=== PATIENT | female | born 1930 | race Caucasian/White ===

== ENCOUNTER 2017-09-23 10:42 | Inpatient (IN) | payer MEDICARE, OTHER ==
[~2017-09-23] VITALS: Ht 160 cm; Wt 68.1 kg
[2017-09-23 10:56] VITALS: Ht 160 cm; Wt 68.1 kg
[2017-09-23] MEDS ORDERED: PIPER-TAZO 3.375 GM IV (PMX) 50 ML IVPB STA (10:56)
[2017-09-23] MEDS ORDERED: SODIUM CHLORIDE 0.9% 1L BAG IV* STA (10:56)
[2017-09-23] MEDS ORDERED: VANCOMYCIN 1 GM (PMX) 250 ML IVPB STA (10:56)
[2017-09-23 11:43] LABS: BASOPHIL # 0.1 10^3/ul (0.0-0.1); BASOPHILS % 0.5 % (0.0-2.0); EOSINOPHILS # 0.1 10^3/ul (0.0-0.5); EOSINOPHILS % 1.1 % (0.0-7.0); HEMATOCRIT 37.2 % (37.0-47.0); HEMOGLOBIN 11.9 g/dl (12.0-16.0); LYMPHOCYTES # 1.9 10^3/ul (0.8-2.9); LYMPHOCYTES % 19.6 % (15.0-51.0); MEAN CORPUSCULAR HEMOGLOBIN 29.9 pg (29.0-33.0); MEAN CORPUSCULAR VOLUME 93.5 fl (82.0-101.0); MEAN PLATELET VOLUME 11.1 fl (7.4-10.4); MONOCYTE # 0.8 10^3/ul (0.3-0.9); MONOCYTES % 8.3 % (0.0-11.0); NEUTROPHIL # 6.8 10^3/ul (1.6-7.5); NEUTROPHILS % 69.7 % (39.0-77.0); PLATELET COUNT 306 10^3/UL (140-415); RED BLOOD COUNT 3.98 10^6/ul (4.20-5.40); RED CELL DISTRIBUTION WIDTH 13.2 % (11.5-14.5); WHITE BLOOD COUNT 9.7 10^3/ul (4.8-10.8)
[2017-09-23 11:59] LABS: ADD UMIC YES; UR AMORPHOUS CRYSTAL FEW /HPF (NONE SEEN); UR ASCORBIC ACID 40 mg/dL (NEGATIVE); UR BACTERIA FEW /HPF (NONE SEEN); UR BILIRUBIN (Dip) NEGATIVE (NEGATIVE); UR BLOOD (Dip) NEGATIVE (NEGATIVE); UR CLARITY CLOUDY (CLEAR); UR COLOR YELLOW (YELLOW); UR GLUCOSE (Dip) NEGATIVE (NEGATIVE); UR KETONES (Dip) NEGATIVE (NEGATIVE); UR LEUKOCYTE ESTERASE (Dip) 3+ Leu/ul (NEGATIVE); UR NITRITE (Dip) NEGATIVE (NEGATIVE); UR NONSQUAMOUS EPITHELIAL CELL 1 /HPF (NONE SEEN); UR RBC 25 /HPF (0-5); UR SPECIFIC GRAVITY (Dip) 1.016 (1.003-1.030); UR TOTAL PROTEIN (Dip) 2+ mg/dl (NEGATIVE); UR UROBILINOGEN (Dip) NEGATIVE (NEGATIVE)
[2017-09-23] MEDS ORDERED: ACETAMINOPHEN 325 MG TAB PO PRN (12:30)
[2017-09-23] MEDS ORDERED: CEFTRIAXONE 1 GM/50 ML (PMX) 50 ML IVPB ONE (12:30)
[2017-09-23] MEDS ORDERED: ONDANSETRON 4 MG INJ IV PRN ×2 (12:30→13:30)
[2017-09-23 12:41] LABS: ALANINE AMINOTRANSFERASE 27 IU/L (13-69); ALBUMIN 3.9 g/dl (3.3-4.9); ALBUMIN/GLOBULIN RATIO 0.95; ALKALINE PHOSPHATASE 158 IU/L (42-121); AMYLASE 59 U/L (11-123); ANION GAP 13 (8-16); ASPARTATE AMINO TRANSFERASE 33 IU/L (15-46); BILIRUBIN,INDIRECT 0.2 mg/dl (0-1.1); BILIRUBIN,TOTAL 0.2 mg/dl (0.2-1.3); BLOOD UREA NITROGEN 30 mg/dl (7-20); CALCIUM 8.9 mg/dl (8.4-10.2); CARBON DIOXIDE 29 mmol/L (21-31); CHLORIDE 106 mmol/L (97-110); CREATININE 0.46 mg/dl (0.44-1.00); GLUCOSE 155 mg/dl (70-220); POTASSIUM 4.9 mmol/L (3.5-5.1); SODIUM 143 mmol/L (135-144)
--- NOTE | 2017-09-23 13:01 | RADRPT ---
PROCEDURE: XR Chest. CLINICAL INDICATION: Sepsis. TECHNIQUE: Single frontal view. COMPARISON: No prior study is available for comparison. FINDINGS: The lungs are clear. The heart size is normal. There is calcification in the aorta consistent with atherosclerosis. There is no pleural effusion. There is no pneumothorax. IMPRESSION: 1. Atherosclerosis. 2. Otherwise normal chest x-ray. RPTAT: QQ .Regino Chicas MD, MD Date Time Electronically viewed and signed by .Regino Chicas MD, MD on 09/23/2017 13:01 .R/
[2017-09-23 13:02] LABS: TROPONIN-I < 0.012 ng/ml (0.00-0.12)
--- NOTE | 2017-09-23 13:16 | ERD ---
ER Documentation Chief Complaint Chief Complaint HPI This is an 87-year-old bedbound demented female with a history of type 2 diabetes, schizophrenia recurrent urinary tract infections and pneumonitis who presents to the emergency department brought in by EMS from [facility]. The patient was sent for further evaluation into the source of her fever. Over the past 24 hours the patient has had documented fever and antipyretics have been given prior to arrival. The patient has had a nonproductive cough and appeared to be more confused than normal. The patient has an allergy to penicillin. She is not currently on any antibiotics. The patient receives all medications through G-tube. No further history is available at this time. ROS All systems reviewed and are negative except as per history of present illness. Allergies Allergies: Uncoded Allergies: PCN (Allergy, Unknown, 09/23/17) PMhx/Soc Hx Cardiac Disorders: Yes (HTN) Hx Psychiatric Problems: Yes (Dementia) Hx Miscellaneous Medical Probl: Yes (DM) Hx Alcohol Use: No Hx Substance Use: No Hx Tobacco Use: No Smoking Status: Never smoker Physical Exam Vitals Vital Signs Date Time Temp Pulse Resp B/P Pulse Ox O2 Delivery O2 Flow Rate FiO2 09/23/17 10:56 93 18 104/62 95 Room Air 09/23/17 10:56 98.6 93 18 104/62 95 Physical Exam Constitutional:Well-developed. Debilitated female. Lying supine with her eyes closed.. Not in respiratory distress HEENT:Normocephalic. Atraumatic.Pupils were equal round reactive to light. 3 dry mucous membranes.No tonsillar exudates. Neck: No nuchal rigidity. No lymphadenopathy. No posterior cervical spine tenderness or step-offs. Respiratory: Not using accessory muscles of respiration.Lungs were clear to auscultation bilaterally. No rhonchi. No rales. No wheezing. Cardiovascular: Regular rate regular rhythm.No murmurs. No rubs were appreciated.S1, S2 normal. Distal pulses are palpable 2+ bilaterally. GI: Abdomen was soft. Nontender. Non Distended. No pulsatile abdominal masses or bruits. No rebound. No guarding. Bowel sounds were present and normal. G- tube present with no surrounding erythremia warmth tenderness fluctuance or induration. Muscle skeletal: Patient will move the upper extremities. Does not follow verbal command therefore muscular strength testing unable to be performed. There is no muscle atrophy of the lower extremities. Muscle atrophy of the bilateral upper extremities. No assymetrical calf tenderness or swelling. Skin: No petechia, no purpura. No lesions on the palms or the soles of the feet. No maculopapular rash. NEURO: She will open her eyes in response to pain. Moans incomprehensible sounds. Patient unable to ambulate therefore gait not observed. Patient does not follow verbal command. This appears to be her baseline according to nursing notes from her [place] Result Diagram: 09/23/17 1100 09/23/17 1100 Results 24 hrs Laboratory Tests Test 09/23/17 11:00 09/23/17 11:45 White Blood Count 9.710^3/ul Red Blood Count 3.9810^6/ul Hemoglobin 11.9g/dl Hematocrit 37.2% Mean Corpuscular Volume 93.5fl Mean Corpuscular Hemoglobin 29.9pg Mean Corpuscular Hemoglobin Concent 32.0g/dl Red Cell Distribution Width 13.2% Platelet Count 86248^3/UL Mean Platelet Volume 11.1fl Neutrophils % 69.7% Lymphocytes % 19.6% Monocytes % 8.3% Eosinophils % 1.1% Basophils % 0.5% Nucleated Red Blood Cells % 0.0/100WBC Neutrophils # 6.810^3/ul Lymphocytes # 1.910^3/ul Monocytes # 0.810^3/ul Eosinophils # 0.110^3/ul Basophils # 0.110^3/ul Nucleated Red Blood Cells # 0.010^3/ul Sodium Level 143mmol/L Potassium Level 4.9mmol/L Chloride Level 106mmol/L Carbon Dioxide Level 29mmol/L Anion Gap 13 Blood Urea Nitrogen 30mg/dl Creatinine 0.46mg/dl Glucose Level 155mg/dl Lactic Acid Level 1.1mmol/L Calcium Level 8.9mg/dl Total Bilirubin 0.2mg/dl Direct Bilirubin 0.00mg/dl Indirect Bilirubin 0.2mg/dl Aspartate Amino Transf (AST/SGOT) 33IU/L Alanine Aminotransferase (ALT/SGPT) 27IU/L Alkaline Phosphatase 158IU/L Troponin I < 0.012ng/ml Total Protein 8.0g/dl Albumin 3.9g/dl Globulin 4.10g/dl Albumin/Globulin Ratio 0.95 Amylase Level 59U/L Lipase 146U/L Urine Color YELLOW Urine Clarity CLOUDY Urine pH 8.0 Urine Specific [place] 1.016 Urine Ketones NEGATIVEmg/dL Urine Nitrite NEGATIVEmg/dL Urine Bilirubin NEGATIVEmg/dL Urine Urobilinogen NEGATIVEmg/dL Urine Leukocyte Esterase 3+Jennifer/ul Urine Microscopic RBC 25/HPF Urine Microscopic WBC 160/HPF Urine Amorphous Crystals FEW/HPF Urine Bacteria FEW/HPF Urine Hemoglobin NEGATIVEmg/dL Urine Glucose NEGATIVEmg/dL Urine Total Protein 2+mg/dl Current Medications Medications (Trade) Dose Ordered Sig/Olena Route PRN Reason Start Time Stop Time Status Last Admin Dose Admin Sodium Chloride 2480 ml 2,480 ml BOLUS OVER 2 HOURS STAT IV* 09/23/17 10:56 09/23/17 11:03 DC 09/23/17 11:13 Vancomycin HCl 250 ml @ 125 mls/hr ONCE STAT IVPB 09/23/17 10:56 09/23/17 12:55 DC 09/23/17 11:43 Piperacillin Sod/ Tazobactam Sod 50 ml @ 100 mls/hr ONCE STAT IVPB 09/23/17 10:56 09/23/17 11:25 Cancel Ceftriaxone Sodium (Rocephin) 50 ml @ 100 mls/hr ONCE ONCE IVPB 09/23/17 12:30 09/23/17 12:59 DC Ondansetron HCl (Zofran Inj) 4 mg BRIDGE ORDER PRN IV NAUSEA AND/OR VOMITING 09/23/17 12:30 09/24/17 12:29 Acetaminophen (Tylenol Tab) 650 mg ER BRIDGE PRN PO MILD PAIN/FEVER 09/23/17 12:30 09/24/17 12:29 Procedures/MDM The patient presented to the emergency department with an acute and persistent change in their mental status. The differential diagnosis is diverse however reversible causes such as hypoglycemia, opiate overdose, thiamine deficiency were immediately considered. The patient was placed on a monitor tech, continuous pulse oximetry and IV access was established. The patients airway was secure however hypoxic events such as anemia, shock, or severe pulmonary disease were all considered as etiologies in this patients presentation. Circulation assessed with good cap refill and did not require fluids or pressure support. Finger stick for rapid glucose determined to be normal. She was afebrile in the emergency department however she had received acetaminophen prior to arrival via her G-tube. Blood cultures and urine cultures were obtained. A Massey catheter was placed and the patient had a significant urinary tract infection with foul-smelling urine. She was started on vancomycin and ceftriaxone. The patient has an allergy to penicillin but documentation indicates that she develops a rash with no anaphylactic reaction. The patient's lactic acid was normal and did not appear to be septic. She did receive a 30 cc/kg bolus of normal saline however she did have clinical dehydration. 12 Lead EKG tracing ordered and reviewed by myself showed: Normal sinus rhythm of 91 bpm and no arrhythmia. IA interval normal. QRS duration normal. No ST segment elevation No ST segment depression. No changes consistent with acute ischemia. Patient will be admitted in serious condition to the hospitalist with an anticipated stay of greater than 2 midnights. Departure Diagnosis: Primary Impression: Urinary tract infection Urinary tract infection type: acute cystitis Hematuria presence: without hematuria Qualified Code: N30.00 - Acute cystitis without hematuria Condition: Serious CHARLIE JAMES Sep 23, 2017 13:16
--- NOTE | 2017-09-23 13:28 | HP ---
Date/Time of Note Date/Time of Note DATE: 09/23/17 TIME: 13:28 Assessment/Plan VTE Prophylaxis VTE Prophylaxis Intervention: LMWH Assessment/Plan Assessment/Plan 1. AMS secondary to UTI - patient currently afebrile after being given Tylenol in EMS and white count normal - UA+ for infection. urine cultures sent and awaiting results - Started on Ceftriaxone and will change once sensitivities return - Lactic acid normal - IVF 2. anemia - will check iron panel - on iron supplements at home and will continue 3. schizophrenia - Continue on Seroquel 4. DM - will check A1c - ISS and accuchecks 5. Dementia - Continue on Memantine 6. HTN - continue home medications via GTB - adjust as needed 7. Cough - Per family, experiencing cough for 4 days - CXR negative for acute cardiopulmonary disease - Guaifenesin as needed - Neb treatments 8. DVT ppx - lovenox 9. GI ppx - Pepcid 10. Diet - Pureed but needs to be fed - Dietary consult for assistance with TPN as needed 11. Code status - Full code 12. Disposition - Admit to med/surg for monitoring HPI/ROS Admit Date/Time Admit Date/Time 09/23/17 Hx of Present Illness 87 yo F with PMH DM type 2, schizophrenia, recurrent UTI, and pneumonitis who presented from [facility] for evaluation of fevers. Patient was given Tyelnol prior to arrival. Patient was a poor historian and able to answer a few questions but kept calling out for her mother when asked more about her presenting complaints. Patient has a nonproductive cough and does complain of some shortness of breath. Denies any chest pain, dizziness, wheezing, or abdominal issues. Able to state name and birthday but not oriented to time or place. Patient is bedbound and receives all medications through G-tube. ROS All 12 systems reviewed and pertinent positives as per HPI. All others negative. Constitutional: disoriented, No diaphoresis, No nausea Eyes: no complaints ENT: no complaints Respiratory: cough, shortness of breath, No sputum, No wheezing Cardiovascular: No chest pain, No lightheadedness, No palpitations Gastrointestinal: No constipation, No diarrhea, No nausea, No vomiting Genitourinary: no complaints Musculoskeletal: no complaints Skin: no complaints Neurologic: confusion Endocrine: no complaints Lymphatic: no complaints Psychological: confusion Immunologic: no complaints PMH/Family/Social Past Medical History Medical History: diabetes, urinary tract infection, other (schizophrenia) Past Surgical History Past Surgical Hx: other (unable to obtain) Family History Significant Family History: no pertinent family hx Social History Alcohol Use: none Smoking Status: Never smoker Drug Use: none Exam/Review of Systems Vital Signs Vitals Vital Signs Date Time Temp Pulse Resp B/P Pulse Ox O2 Delivery O2 Flow Rate FiO2 09/23/17 10:56 93 18 104/62 95 Room Air 09/23/17 10:56 98.6 Exam Constitutional: alert, No distress Psych: confusion Head: atraumatic, normocephalic Eyes: EOMI, PERRL ENMT: mucosa pink and moist Neck: non-tender, supple Respiratory: clear to auscultation, No crackles/rales, No wheezing Cardiovascular: regular rate and rhythm, No murmurs/extra sounds, No systolic murmur Gastrointestinal: non-tender, other (G tube in place), soft, No distended, No rebound or guarding Genitourinary - Female: No CVA tenderness Musculoskeletal: nl extremities to inspection Extremities: normal pulses, No edema Neurological: confused Skin: nl turgor Lymph: nl lymph nodes Labs Result Diagram: 09/23/17 1100 09/23/17 1100 Medications Medications Home medications reviewed Procedures Procedures PROCEDURE: XR Chest. CLINICAL INDICATION: Sepsis. TECHNIQUE: Single frontal view. COMPARISON: No prior study is available for comparison. FINDINGS: The lungs are clear. The heart size is normal. There is calcification in the aorta consistent with atherosclerosis. There is no pleural effusion. There is no pneumothorax. IMPRESSION: 1. Atherosclerosis. 2. Otherwise normal chest x-ray. PROCEDURE: CT Brain without contrast. CLINICAL INDICATION: Altered mental status. TECHNIQUE: A CT of the brain without contrast was performed utilizing axial sections from the skull base through the vertex. The patient was scanned without intravenous contrast enhancement. Sagittal and coronal reformatted images were obtained using the data from the axial images. Total exam DLP is 720.23 mGy-cm. CTDIvol is 43.77 mGy. One or more of the following dose reduction techniques were used: Automated exposure control, adjustment of the mA and/or kV according to patient size, use of iterative reconstruction technique. COMPARISON: None available FINDINGS: There is normal gomez-white matter differentiation. There is enlargement of the ventricles and subarachnoid spaces consistent with atrophy. There is decreased attenuation of the periventricular white matter consistent with microangiopathic ischemic change. There is no intracranial hemorrhage or space-occupying lesion. There are vascular calcifications consistent with atherosclerosis. There is no skull fracture or lytic lesion. Fluid is present bilaterally in the maxillary sinuses. 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 IMPRESSION: 1. Atrophy. 2. Microangiopathic ischemic change. 3. Atherosclerosis. 4. Fluid in the maxillary sinuses. 5. 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 Correlation with cervical spine MRI should be considered. 6. Otherwise unremarkable noncontrast CT scan of the brain. HAILEY SMITH MD Sep 23, 2017 13:28
[2017-09-23] MEDS ORDERED: MAGNESIUM HYDROXIDE 30ML CUP PO PRN (13:30)
[2017-09-23] MEDS ORDERED: NACL 0.9% 3 ML SYG IV SCH (13:30)
[2017-09-23] MEDS ORDERED: BISACODYL (EC) 5 MG TAB PO PRN (13:30)
[2017-09-23] MEDS: SOD CHLORIDE 0.9% 1,000 ML IV SCH (14:09)
--- NOTE | 2017-09-23 15:07 | RADRPT ---
PROCEDURE: CT Brain without contrast. CLINICAL INDICATION: Altered mental status. TECHNIQUE: A CT of the brain without contrast was performed utilizing axial sections from the skul l base through the vertex. The patient was scanned without intravenous contrast enhancement. Sagitta l and coronal reformatted images were obtained using the data from the axial images. Total exam DLP is 720.23 mGy-cm. CTDIvol is 43.77 mGy. One or more of the following dose reduction techniques we re used: Automated exposure control, adjustment of the mA and/or kV according to patient size, use o f iterative reconstruction technique. COMPARISON: None available FINDINGS: There is normal gomez-white matter differentiation. There is enlargement of the ventricles and subarachnoid spaces consistent with atrophy. There is decreased attenuation of the periventricular white matter consistent with microangiopathic ischemic change. There is no intracranial hemorrhage or space-occupying lesion. There are vascular calcifications consistent with atherosclerosis. There is no skull fracture or lytic lesion. Fluid is present bilaterally in the maxillary sinuses. 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 IMPRESSION: 1. Atrophy. 2. Microangiopathic ischemic change. 3. Atherosclerosis. 4. Fluid in the maxillary sinuses. 5. 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 Correlation with cervical spine MRI should be considered. 6. Otherwise unremarkable noncontrast CT scan of the brain. RPTAT: QQ .Regino Chicas MD, MD Date Time Electronically viewed and signed by .Regino Chicas MD, on 09/23/2017 15:00 .R/
[2017-09-23] MEDS ORDERED: DEXTROSE 50% 50 ML SYRINGE IV PRN ×2 (17:30)
[2017-09-23] MEDS ORDERED: GLUCOSE GEL 15 GRAM TUBE PO PRN ×2 (17:30)
[2017-09-23] MEDS ORDERED: GLUCOSE GEL 15 GRAM TUBE BUCCAL PRN (17:30)
[2017-09-23] MEDS ORDERED: GLUCAGON 1 MG INJ IM PRN (17:30)
[2017-09-23 18:00] VITALS: BP 144/62; RESP 18
[2017-09-23] MEDS: INSULIN ASPART [NOVOLOG] 3 ML PEN SC SCH ×2 (18:31→21:00)
[2017-09-23 19:40] LABS: IRON 45 ug/dl (35-150)
[2017-09-23 19:50] LABS: TOTAL IRON BINDING CAPACITY 326 ug/dl (241-421)
[2017-09-23 20:00] VITALS: BP 158/70; RESP 20
[2017-09-23] MEDS: ALBUTEROL 0.083% (NEB) 2.5 MG/3 ML AMP HHN SCH (20:11)
[2017-09-23] MEDS: QUETIAPINE 25 MG TAB GTB SCH (21:00)
[2017-09-23 22:00] VITALS: BP 129/61; RESP 20
[2017-09-24] VITALS (12 sets, daily range): BP systolic 108–171; BP diastolic 53–77; PULSE 62–98; RESP 18–20
[2017-09-24] MEDS: ACCU-CHEK XX SCH (01:25)
[2017-09-24] MEDS ORDERED: VANCOMYCIN IV PER PHARMACY XX SCH (02:00)
[2017-09-24] MEDS: SOD CHLORIDE 0.9% 1,000 ML IV SCH ×4 (02:45→22:10)
[2017-09-24 06:26] LABS: BASOPHILS % 0.4 % (0.0-2.0); EOSINOPHILS # 0.2 10^3/ul (0.0-0.5); EOSINOPHILS % 2.2 % (0.0-7.0); HEMATOCRIT 34.4 % (37.0-47.0); HEMOGLOBIN 10.8 g/dl (12.0-16.0); LYMPHOCYTES # 2.5 10^3/ul (0.8-2.9); LYMPHOCYTES % 25.2 % (15.0-51.0); MEAN CORPUSCULAR HEMOGLOBIN 29.7 pg (29.0-33.0); MEAN CORPUSCULAR HGB CONC 31.4 g/dl (32.0-37.0); MEAN CORPUSCULAR VOLUME 94.5 fl (82.0-101.0); MEAN PLATELET VOLUME 10.4 fl (7.4-10.4); MONOCYTE # 0.8 10^3/ul (0.3-0.9); MONOCYTES % 8.1 % (0.0-11.0); NEUTROPHIL # 6.2 10^3/ul (1.6-7.5); NEUTROPHILS % 63.2 % (39.0-77.0); PLATELET COUNT 299 10^3/UL (140-415); RED BLOOD COUNT 3.64 10^6/ul (4.20-5.40); RED CELL DISTRIBUTION WIDTH 13.2 % (11.5-14.5); WHITE BLOOD COUNT 9.8 10^3/ul (4.8-10.8)
[2017-09-24 06:53] LABS: CALCIUM 8.1 mg/dl (8.4-10.2); CREATININE 0.44 mg/dl (0.44-1.00); MAGNESIUM 1.9 mg/dl (1.7-2.5); PHOSPHORUS 3.2 mg/dl (2.5-4.9); POTASSIUM 4.4 mmol/L (3.5-5.1)
[2017-09-24] MEDS: ALBUTEROL 0.083% (NEB) 2.5 MG/3 ML AMP HHN SCH ×3 (08:00→20:50)
[2017-09-24] MEDS: INSULIN ASPART [NOVOLOG] 3 ML PEN SC SCH ×3 (08:15→22:25)
[2017-09-24] MEDS: VANCOMYCIN 1 GM in NS 250 ML IVPB SCH (08:23)
[2017-09-24] MEDS: QUETIAPINE 25 MG TAB GTB SCH ×2 (09:35→22:30)
[2017-09-24] MEDS: MEMANTINE 5 MG TAB NGT SCH (09:40)
[2017-09-24] MEDS: LISINOPRIL 10 MG TAB GTB SCH (09:40)
[2017-09-24] MEDS: AMLODIPINE 5 MG TAB GTB SCH (09:40)
[2017-09-24] MEDS: FERROUS SULFATE 60 MG/ML 5ML CUP GTB SCH (09:40)
[2017-09-24] MEDS: ASCORBIC ACID 500 MG TAB GTB SCH (09:40)
[2017-09-24] MEDS: CHOLECALCIFEROL 2,000 UNIT CAP GTB SCH (09:41)
[2017-09-24] MEDS: ENOXAPARIN 40 MG/0.4 ML SYG SC SCH (10:11)
[2017-09-24] MEDS: CEFEPIME 1GM/50 ML (PMX) 50 ML IVPB SCH ×2 (12:30→22:20)
[2017-09-24] MEDS ORDERED: CEFTRIAXONE 1 GM/50 ML (PMX) 50 ML IVPB SCH (14:00)
--- NOTE | 2017-09-24 15:36 | PN ---
Date/Time of Note Date/Time of Note DATE: 09/24/17 TIME: 15:17 Assessment/Plan VTE Prophylaxis VTE Prophylaxis Intervention: LMWH Lines/Catheters IV Catheter Type (from Nrs): Peripheral IV Urinary Cath still in place: Yes Reason Cath still needed: terminal illness/intractable pain Assessment/Plan Chief Complaint/Hosp Course 1. AMS secondary to UTI - patient currently afebrile after being given Tylenol in EMS and white count normal - UA+ for infection. 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 2. anemia - will check iron panel - on iron supplements at home and will continue 3. schizophrenia - Continue on Seroquel 4. DM - will check A1c - ISS and accuchecks 5. Dementia - Continue on Memantine 6. HTN - continue home medications via GTB - adjust as needed 7. Cough - Per family, experiencing cough for 4 days - CXR negative for acute cardiopulmonary disease - Guaifenesin as needed - Neb treatments 8. DVT ppx - lovenox 9. GI ppx - Pepcid 10. Diet - Pureed but needs to be fed - has peg tube, but patient's family states she is taking pureed -speech therapy eval ordered to test swallowing, may need to restart tube feeds. 11. Code status - Full code 12. Disposition -neuro consult pending -unable to do MRI due to metal in L shoulder -? CT for syrinx? Problems: Subjective 24 Hr Interval Summary Free Text/Dictation patient's son states patient is at baseline mentation Exam/Review of Systems Vital Signs Vitals Vital Signs Date Time Temp Pulse Resp B/P Pulse Ox O2 Delivery O2 Flow Rate FiO2 09/24/17 14:00 98.3 79 18 137/64 96 09/24/17 12:01 Nasal Cannula 2.0 09/23/17 20:14 24 Intake and Output 09/23/17 09/23/17 09/24/17 15:00 23:00 07:00 Intake Total 240 ml 1200 ml Output Total 1250 ml 750 ml Balance -1010 ml 450 ml Exam Physical exam General: Patient is laying in bed , arousable Mentation: Patient is alert and oriented to self/family periodically, not to situation Head: Normocephalic atraumatic Eyes: EOMI, pupils reactive to light Neck: Supple, nontender, midline Respiratory: Clear to auscultation bilaterally Cardiovascular: regular rate, no obvious murmurs Gastrointestinal: non-tender to palpation, bowel sounds heard. Neurological: Moves al l extremities spontaneously, but not to command due to mentation Results Result Diagram: 09/24/17 0532 09/24/17 0532 Results 24 hrs Laboratory Tests Test 09/23/17 18:04 09/23/17 18:38 09/23/17 21:04 09/24/17 05:32 Bedside Glucose 146 144 Iron Level 45 Total Iron Binding Capacity 326 Percent Iron Saturation 14 L White Blood Count 9.8 Red Blood Count 3.64 L Hemoglobin 10.8 L Hematocrit 34.4 L Mean Corpuscular Volume 94.5 Mean Corpuscular Hemoglobin 29.7 Mean Corpuscular Hemoglobin Concent 31.4 L Red Cell Distribution Width 13.2 Platelet Count 299 Mean Platelet Volume 10.4 Neutrophils % 63.2 Lymphocytes % 25.2 Monocytes % 8.1 Eosinophils % 2.2 Basophils % 0.4 Nucleated Red Blood Cells % 0.0 Neutrophils # 6.2 Lymphocytes # 2.5 Monocytes # 0.8 Eosinophils # 0.2 Basophils # 0.0 Nucleated Red Blood Cells # 0.0 Sodium Level 144 Potassium Level 4.4 Chloride Level 113 H Carbon Dioxide Level 26 Anion Gap 9 Blood Urea Nitrogen 18 # Creatinine 0.44 Glucose Level 125 Hemoglobin A1c 6.5 H Calcium Level 8.1 L Phosphorus Level 3.2 Magnesium Level 1.9 Test 09/24/17 08:12 09/24/17 12:08 Bedside Glucose 130 269 H Medications Medications Current Medications Sodium Chloride (NS) 1,000 ml @ 75 mls/hr [id number] IV Last administered on 09/24t 04:51; Admin Dose 75 MLS/HR; Start 09/23/17 at 13:25 Ondansetron HCl (Zofran Inj) 4 mg Q6H PRN IV NAUSEA AND/OR VOMITING; Start 09/23/17 at 13:30 Acetaminophen (Tylenol Tab) 650 mg Q6H PRN GTB PAIN LEVEL 1-3 OR FEVER; Start 09/23/17 at 13:30 Magnesium Hydroxide (Milk Of Mag) 30 ml DAILY PRN PO CONSTIPATION; Start at 13:30 Bisacodyl (Dulcolax) 5 mg DAILY PRN PO CONSTIPATION; Start 09/23/17 at 13:30 Enoxaparin Sodium (Lovenox) 40 mg DAILY SC Last administered on 09/24/17 10:11 ; Admin Dose 40 MG; Start 09/24/17 at 09:00 Diagnostic Test (Pha) (Accu-Chek) 1 ea 02 XX ; Start 09/24/17 at 02:00 Miscellaneous Information 1 ea NOTE XX ; Start 09/23/17 at 17:30 Glucose (Glutose) 15 gm Q15M PRN PO DECREASED GLUCOSE; Start 09/23/17 at 17:30 Glucose (Glutose) 22.5 gm Q15M PRN PO DECREASED GLUCOSE; Start 09/23/17 at 17: 30 Dextrose (D50w Syringe) 25 ml Q15M PRN IV DECREASED GLUCOSE; Start 09/23/17 at 17:30 Dextrose (D50w Syringe) 50 ml Q15M PRN IV DECREASED GLUCOSE; Start 09/23/17 at 17:30 Glucagon (Glucagen) 1 mg Q15M PRN IM DECREASED GLUCOSE; Start 09/23/17 at 17:30 Glucose (Glutose) 15 gm Q15M PRN BUCCAL DECREASED GLUCOSE; Start 09/23/17 at 17 :30 Amlodipine Besylate (Norvasc) 5 mg DAILY GTB Last administered on 09/24/17 09: 40; Admin Dose 5 MG; Start 09/24/17 at 09:00 Ascorbic Acid (Vitamin C) 500 mg DAILY GTB Last administered on 09/24/17 09:40 ; Admin Dose 500 MG; Start 09/24/17 at 09:00 Clonidine (Catapres) 0.2 mg BID GTB Last administered on 09/24/17 09:39; Admin Dose 0.2 MG; Start 09/23/17 at 21:00 Ferrous Sulfate (Feosol Liquid Cup) 300 mg DAILY GTB Last administered on 09:40; Admin Dose 300 MG; Start 09/24/17 at 09:00 Lisinopril (Zestril) 10 mg DAILY GTB Last administered on 09/24/17 09:40; Admin Dose 10 MG; Start 09/24/17 at 09:00 Memantine (Namenda) 5 mg DAILY NGT Last administered on 09/24/17 09:40; Admin Dose 5 MG; Start 09/24/17 at 09:00 Quetiapine Fumarate (Seroquel) 12.5 mg BID GTB Last administered on 09/24/17 09:35; Admin Dose 12.5 MG; Start 09/23/17 at 21:00 Cholecalciferol (Vitamin D) 2,000 unit DAILY GTB Last administered on 09:41; Admin Dose 2,000 UNIT; Start 09/24/17 at 09:00 Guaifenesin/ Dextromethorphan (Robitussin Dm Liquid Cup) 5 ml Q4H PRN PO cough ; Start 09/23/17 at 18:00 Hydralazine HCl 10 mg 10 mg Q6 PRN IV SBP >160; Start 09/23/17 at 18:00 Vancomycin HCl 250 ml @ 125 mls/hr Q24H IVPB Last administered on 09/24/17 08 :23; Admin Dose 125 MLS/HR; Start 09/24/17 at 08:00 Cefepime HCl (Maxipime 1gm/50 ml (Pmx)) 50 ml @ 100 mls/hr Q12 IVPB Last administered on 09/24/17 12:30; Admin Dose 100 MLS/HR; Start 09/24/17 at 12:00 CYNTHIA LASSITER Sep 24, 2017 15:34
[2017-09-25] VITALS (15 sets, daily range): BP systolic 128–185; BP diastolic 56–93; PULSE 77–113; RESP 18–20
[2017-09-25] MEDS: ACCU-CHEK XX SCH (02:00)
[2017-09-25] MEDS: SOD CHLORIDE 0.9% 1,000 ML IV SCH (02:31)
[2017-09-25] MEDS: hydrALAzine 20 MG INJ IV PRN (04:44)
--- NOTE | 2017-09-25 05:24 | CONS ---
DATE OF ADMISSION: 09/23/2017 DATE OF CONSULTATION: 09/24/2017 NEUROLOGY CONSULTATION Thank you, Dr. Omer, for your kind referral for evaluation of possible syrinx. Computer system is down and not able to review previous consults, notes, patient labs/imaging studies . HISTORY OF PRESENT ILLNESS: The patient is an 87-year-old lady who was admitted from snf facility with fevers and worsening of mentation, was diagnosed with UTI and possible pneumonia. Patient is not able to provide details of the history, so I called patient's son , Mina Saleem at [phone], who stated that patient has been diagnosed with Alzheimer disease and suffered a fall and fractured shoulder about a year ago, following hospitalization to [facility], she was moved to a nursing facility. For the last year she is not able to ambulate. She is forgetful and not able to eat, so she required G-tube. According to the son, a few years ago patient was complaining of headaches and was evaluated by several neurologists, was told that she had "blood clots in the back of the head" but "there was nothing to be done about those". I was asking the patient's son if she was diagnosed with syrinx or syringomyelia and he told me that he did not know or hear those words before. SOCIAL HISTORY: No alcohol, tobacco, drug use. FAMILY HISTORY: Noncontributory. Please refer to MAR for patient's medications. PHYSICAL EXAMINATION: GENERAL: She is in not in acute distress, lying in bed. HEENT: Normocephalic, atraumatic head. NECK: No carotid bruits, no thyromegaly, no meningeal signs. LUNGS: Scattered rhonchi bilaterally. CARDIAC: Normal cardiac rhythm and sounds. ABDOMEN: Soft. EXTREMITIES: No cyanosis, clubbing or edema. NEUROLOGIC: She is awake, alert, and oriented x1 only. She has fluent speech, and she follows commands. Present response to visual threat bilaterally. Pupils reactive from 3 to 2 mm bilaterally. Extraocular movements intact without nystagmus. Symmetrical face. Preserved facial strength and sensation. Tongue is in midline. Palate elevates symmetrically. Motor strength examination seems to be preserved in upper extremities. There is some amount of give way, but she moves against gravity at least 4/5 normal tone. Lower extremity examination shows increased tone. She is still able to move and withdraw, but not brisk about 3, maybe even 3-/5. Deep tendon reflexes 2+ upper extremities and knees, absent ankle jerks. Equivocal response to plantar stimulation. The patient claims to have normal sensation in bilateral upper and lower extremities. Coordination preserved on [id number] testing. No dysmetria or tremor. IMPRESSION: Alzheimer disease by history. The patient presented with worsening of encephalopathy secondary to urinary tract infection/possible pneumonia. According to patient's son, she is not ambulatory for about a year. She does have increased tone and weakness in bilateral lower extremities which may relate to myelopathic changes. I did not get any previous history of syrinx at least from patient's son. The patient's son stated that she is not able to ambulate for about a year since her admission to [facility] she had some workup done at that facility. Probably it is reasonable to obtain results from previous hospitalization. Will review all imaging studies and available notes when computer system is working again. Thank you very much for this interesting consultation. Dictated By: SHYAM FINNEGAN/VALARIE Conf#: [id number] DID#: [id number] SAM
[2017-09-25 05:38] LABS: BASOPHILS % 0.4 % (0.0-2.0); EOSINOPHILS # 0.2 10^3/ul (0.0-0.5); EOSINOPHILS % 1.9 % (0.0-7.0); HEMATOCRIT 32.6 % (37.0-47.0); HEMOGLOBIN 10.5 g/dl (12.0-16.0); LYMPHOCYTES % 22.6 % (15.0-51.0); MEAN CORPUSCULAR HEMOGLOBIN 29.9 pg (29.0-33.0); MEAN CORPUSCULAR HGB CONC 32.2 g/dl (32.0-37.0); MEAN CORPUSCULAR VOLUME 92.9 fl (82.0-101.0); MEAN PLATELET VOLUME 10.1 fl (7.4-10.4); MONOCYTE # 0.9 10^3/ul (0.3-0.9); MONOCYTES % 9.8 % (0.0-11.0); NEUTROPHIL # 5.8 10^3/ul (1.6-7.5); NEUTROPHILS % 64.5 % (39.0-77.0); PLATELET COUNT 283 10^3/UL (140-415); RED BLOOD COUNT 3.51 10^6/ul (4.20-5.40); RED CELL DISTRIBUTION WIDTH 13.1 % (11.5-14.5); WHITE BLOOD COUNT 8.9 10^3/ul (4.8-10.8)
[2017-09-25 06:05] LABS: CALCIUM 8.3 mg/dl (8.4-10.2); CREATININE 0.35 mg/dl (0.44-1.00); MAGNESIUM 1.8 mg/dl (1.7-2.5); PHOSPHORUS 3.2 mg/dl (2.5-4.9); POTASSIUM 3.9 mmol/L (3.5-5.1)
[2017-09-25] MEDS: ALBUTEROL 0.083% (NEB) 2.5 MG/3 ML AMP HHN SCH ×3 (08:00→20:02)
[2017-09-25] MEDS: INSULIN ASPART [NOVOLOG] 3 ML PEN SC SCH ×4 (08:15→21:00)
[2017-09-25] MEDS: VANCOMYCIN 1 GM in NS 250 ML IVPB SCH (08:22)
--- NOTE | 2017-09-25 09:49 | CONS ---
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 Possible posttraumatic syrinx? I do not know if pt could benefit from any intervention for syrinx (like draining) given age and comorbidities, and even if it would be required, as so far no imaging for spine done. MRI of the C-spine will be best diagnostic study , but pt has some left humeral hardware. Records could be obtain incl surgical notes from [facility] to see if it is MRI compatible. I can at least get CT C-spine at the mean time. SHYAM SUN MD Sep 25, 2017 09:48
[2017-09-25] MEDS: LISINOPRIL 10 MG TAB GTB SCH (09:54)
[2017-09-25] MEDS: CEFEPIME 1GM/50 ML (PMX) 50 ML IVPB SCH ×2 (09:55→21:27)
[2017-09-25] MEDS: FERROUS SULFATE 60 MG/ML 5ML CUP GTB SCH (09:55)
[2017-09-25] MEDS: CHOLECALCIFEROL 2,000 UNIT CAP GTB SCH (09:55)
[2017-09-25] MEDS: QUETIAPINE 25 MG TAB GTB SCH ×2 (09:55→21:27)
[2017-09-25] MEDS: ASCORBIC ACID 500 MG TAB GTB SCH (09:55)
[2017-09-25] MEDS: MEMANTINE 5 MG TAB NGT SCH (09:55)
[2017-09-25] MEDS: AMLODIPINE 5 MG TAB GTB SCH (09:55)
[2017-09-25] MEDS: ENOXAPARIN 40 MG/0.4 ML SYG SC SCH (10:11)
[2017-09-25] MEDS ORDERED: DEXTROSE 5%-0.45% NACL 1,000 ML IV SCH (11:00)
--- NOTE | 2017-09-25 12:21 | RADRPT ---
PROCEDURE: CT cervical spine without contrast. CLINICAL INDICATION: Syrinx TECHNIQUE: CT of the cervical spine without contrast was performed on a multidetector CT scanner, w ith multiplanar reformats. One or more of the following dose reduction techniques were used: Automa cathryn exposure control, adjustment in mA and / or kV according to patient size, use of iterative recon structive technique. CTDIvol = 32 mGy and DLP = 562 mGy-cm. COMPARISON: None available. FINDINGS: There is hypodensity within the cord with expansion seen in the upper cervical region from approxima tely the C4 level extending cephalad into the lower brainstem in the medulla. The findings are suspi cious for a syrinx. The lower cervical cord is not well seen. No fracture or dislocation is identified. There is preservation of the lordosis of the cervical spi ne. There is trace retrolisthesis at C2-3, and trace anterolisthesis at C7-T1. The vertebral juan s are maintained in height. There are multilevel anterior osteophytes. There is disc space narrowi ng, to moderate at C3-4, moderate to severe at C4-5 and C5-6, moderate at C6-7, mild at C7-T1. Addit ional findings by levels: C2-3: Posterior disk/osteophyte ligamentum flavum hypertrophy with at least mild central canal steno sis. Facet arthropathy without foraminal narrowing identified. C3-4: Posterior disk/osteophyte and ligamentum flavum hypertrophy with at least mild central canal s tenosis. Facet arthropathy with moderate - severe left foraminal narrowing. C4-5: Posterior disk/osteophyte and ligamentum flavum hypertrophy with mild central canal stenosis. Uncovertebral osteophytes and facet arthropathy with mild right, moderate to severe left foraminal narrowing. C5-6: Posterior disk/osteophyte and ligamentum flavum hypertrophy with at least moderate central can al stenosis. Uncovertebral osteophytes and facet arthropathy with mild right, moderate - severe le ft foraminal narrowing. C6-7: Posterior disk/osteophyte and ligamentum flavum hypertrophy with mild central canal stenosis. Uncovertebral osteophytes and facet arthropathy. Mild right, moderate left foraminal narrowing. C7-T1: Facet arthropathy. No central canal stenosis or foraminal narrowing identified. IMPRESSION: 1. 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 Lower cervical cord not well seen. If possible, further evaluation with MRI of the cervical spine without and with contrast is recommended. 2. Cervical spondylosis/degenerative enthesopathy as described above. 3. Moderate central canal stenosis at C4-5 and C5-6, and mild central canal stenosis at C2-3, C3-4, C6-7. 4. Multilevel foraminal narrowing detailed above. 5. Osteopenia. RPTAT: VV .Evin Garcia MD, Date Time Electronically viewed and signed by .Evin Garcia MD, on 09/25/2017 12:20 .O/
[2017-09-25] MEDS: SOD CHLORIDE 0.45% 1,000 ML IV SCH (12:23)
--- NOTE | 2017-09-25 14:34 | PN ---
Date/Time of Note Date/Time of Note DATE: 09/25/17 TIME: 14:31 Assessment/Plan VTE Prophylaxis VTE Prophylaxis Intervention: SCD's Lines/Catheters IV Catheter Type (from Nrs): Peripheral IV Urinary Cath still in place: Yes Reason Cath still needed: terminal illness/intractable pain Assessment/Plan Chief Complaint/Hosp Course 1. AMS secondary to UTI/bacteremia - patient currently afebrile after being given Tylenol in EMS and white count normal - UA+ for infection. 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 -pending neuro recs, will attempt to speak with son regarding if they would like more workup vs outpatient followup with her own neurologist. 2. anemia -stable, likely chronic -no signs of GI bleed 3. schizophrenia - Continue on Seroquel 4. DM - a1c noted - ISS and accuchecks 5. Dementia - Continue on Memantine 6. HTN - continue home medications via GTB - adjust as needed 7. Cough - Per family, experiencing cough for 4 days prior to admission - CXR negative for acute cardiopulmonary disease - Guaifenesin as needed - Neb treatments -? if patient is having a lot of secretions vs URI 8. DVT ppx - lovenox 9. GI ppx - Pepcid 10. Diet - Pureed but needs to be fed - has peg tube, but patient's family states she is taking pureed -speech therapy caren saw patient, stated if patient shows signs of aspiration, make NPO, restart tube feeds if necessary -nursing is feeding the patient -diabetic diet 11. Code status - Full code 12. Disposition -neuro recs appreciated -unable to do MRI due to metal in L shoulder -? CT for syrinx? Problems: Subjective 24 Hr Interval Summary Free Text/Dictation awake, but not completely oriented Exam/Review of Systems Vital Signs Vitals Vital Signs Date Time Temp Pulse Resp B/P Pulse Ox O2 Delivery O2 Flow Rate FiO2 09/25/17 13:53 97.4 79 20 155/65 97 09/25/17 13:05 21 09/25/17 12:00 Room Air 09/24/17 17:20 1.0 Intake and Output 09/24/17 09/24/17 09/25/17 15:00 23:00 07:00 Intake Total 250 ml 1050 ml 600 ml Output Total 1400 ml Balance 250 ml 1050 ml -800 ml Exam Physical exam General: Patient is laying in bed , arousable Mentation: Patient is alert and oriented to self/family periodically, not to situation Head: Normocephalic atraumatic Eyes: EOMI, pupils reactive to light Neck: Supple, nontender, midline Respiratory: Clear to auscultation bilaterally Cardiovascular: regular rate, no obvious murmurs Gastrointestinal: non-tender to palpation, bowel sounds heard. Neurological: Moves all extremities spontaneously, but not to command due to mentation Results Result Diagram: 09/25/17 0525 09/25/17 0525 Results 24 hrs Laboratory Tests Test 09/24/17 17:27 09/24/17 22:21 09/25/17 05:25 09/25/17 08:23 Bedside Glucose 75 125 125 White Blood Count 8.9 Red Blood Count 3.51 L Hemoglobin 10.5 L Hematocrit 32.6 L Mean Corpuscular Volume 92.9 Mean Corpuscular Hemoglobin 29.9 Mean Corpuscular Hemoglobin Concent 32.2 Red Cell Distribution Width 13.1 Platelet Count 283 Mean Platelet Volume 10.1 Neutrophils % 64.5 Lymphocytes % 22.6 Monocytes % 9.8 Eosinophils % 1.9 Basophils % 0.4 Nucleated Red Blood Cells % 0.0 Neutrophils # 5.8 Lymphocytes # 2.0 Monocytes # 0.9 Eosinophils # 0.2 Basophils # 0.0 Nucleated Red Blood Cells # 0.0 Sodium Level 143 Potassium Level 3.9 Chloride Level 113 H Carbon Dioxide Level 24 Anion Gap 10 Blood Urea Nitrogen 10 Creatinine 0.35 L Glucose Level 120 Calcium Level 8.3 L Phosphorus Level 3.2 Magnesium Level 1.8 Test 09/25/17 12:10 Bedside Glucose 173 Medications Medications Current Medications Ondansetron HCl (Zofran Inj) 4 mg Q6H PRN IV NAUSEA AND/OR VOMITING; Start 09/23/17 at 13:30 Acetaminophen (Tylenol Tab) 650 mg Q6H PRN GTB PAIN LEVEL 1-3 OR FEVER; Start 09/23/17 at 13:30 Magnesium Hydroxide (Milk Of Mag) 30 ml DAILY PRN PO CONSTIPATION; Start at 13:30 Bisacodyl (Dulcolax) 5 mg DAILY PRN PO CONSTIPATION; Start 09/23/17 at 13:30 Enoxaparin Sodium (Lovenox) 40 mg DAILY SC Last administered on 09/25/17 10:11 ; Admin Dose 40 MG; Start 09/24/17 at 09:00 Diagnostic Test (Pha) (Accu-Chek) 1 ea 02 XX ; Start 09/24/17 at 02:00 Miscellaneous Information 1 ea NOTE XX ; Start 09/23/17 at 17:30 Glucose (Glutose) 15 gm Q15M PRN PO DECREASED GLUCOSE; Start 09/23/17 at 17:30 Glucose (Glutose) 22.5 gm Q15M PRN PO DECREASED GLUCOSE; Start 09/23/17 at 17: 30 Dextrose (D50w Syringe) 25 ml Q15M PRN IV DECREASED GLUCOSE; Start 09/23/17 at 17:30 Dextrose (D50w Syringe) 50 ml Q15M PRN IV DECREASED GLUCOSE; Start 09/23/17 at 17:30 Glucagon (Glucagen) 1 mg Q15M PRN IM DECREASED GLUCOSE; Start 09/23/17 at 17:30 Glucose (Glutose) 15 gm Q15M PRN BUCCAL DECREASED GLUCOSE; Start 09/23/17 at 17 :30 Ascorbic Acid (Vitamin C) 500 mg DAILY GTB Last administered on 09/25/17 09:55 ; Admin Dose 500 MG; Start 09/24/17 at 09:00 Clonidine (Catapres) 0.2 mg BID GTB Last administered on 09/25/17 09:54; Admin Dose 0.2 MG; Start 09/23/17 at 21:00 Ferrous Sulfate (Feosol Liquid Cup) 300 mg DAILY GTB Last administered on 09:55; Admin Dose 300 MG; Start 09/24/17 at 09:00 Lisinopril (Zestril) 10 mg DAILY GTB Last administered on 09/25/17 09:54; Admin Dose 10 MG; Start 09/24/17 at 09:00 Memantine (Namenda) 5 mg DAILY NGT Last administered on 09/25/17 09:55; Admin Dose 5 MG; Start 09/24/17 at 09:00 Quetiapine Fumarate (Seroquel) 12.5 mg BID GTB Last administered on 09/25/17 09:55; Admin Dose 12.5 MG; Start 09/23/17 at 21:00 Cholecalciferol (Vitamin D) 2,000 unit DAILY GTB Last administered on 09:55; Admin Dose 2,000 UNIT; Start 09/24/17 at 09:00 Guaifenesin/ Dextromethorphan (Robitussin Dm Liquid Cup) 5 ml Q4H PRN PO cough ; Start 09/23/17 at 18:00 Hydralazine HCl 10 mg 10 mg Q6 PRN IV SBP >160 Last administered on 09/25/17 04:44; Admin Dose 10 MG; Start 09/23/17 at 18:00 Vancomycin HCl 250 ml @ 125 mls/hr Q24H IVPB Last administered on 09/25/17 08 :22; Admin Dose 125 MLS/HR; Start 09/24/17 at 08:00 Cefepime HCl (Maxipime 1gm/50 ml (Pmx)) 50 ml @ 100 mls/hr Q12 IVPB Last administered on 09/25/17 09:55; Admin Dose 100 MLS/HR; Start 09/24/17 at 12:00 Amlodipine Besylate 10 mg 10 mg DAILY GTB ; Start 09/26/17 at 09:00 Sodium Chloride (1/2 NS) 1,000 ml @ 70 mls/hr [id number] IV Last administered on 09/25/17 12:23; Admin Dose 70 MLS/HR; Start 09/25/17 at 11:00 Miscellaneous Information (*Rx Drug Level Order Reminder*) VANCOMYCIN TROUGH LEVEL... ONCE ONCE XX ; Start 09/26/17 at 07:00; Stop 09/26/17 at 07:01 CYNTHIA LASSITER Sep 25, 2017 14:34
--- NOTE | 2017-09-25 14:41 | CONS ---
DATE OF ADMISSION: 09/23/2017 DATE OF CONSULTATION: 09/25/2017 TYPE OF CONSULTATION: Infectious Disease. REASON FOR CONSULTATION: Antibiotic management. HISTORY OF PRESENT ILLNESS: Shane Baugh is an 87-year-old female with numerous problems who is admitted with fever and is being seen for antibiotic management. Past problems include: 1. Adult-onset diabetes mellitus. 2. Schizophrenia. 3. Recurrent UTIs. 4. Pneumonitis. 5. Status post G-tube placement. 6. Senile dementia. 7. Hypertension. 8. Anemia. Acutely, the patient comes in from a [facility] living facility for evaluation of fevers. Keeley ramirez is demented. She has a nonproductive cough and complains of some shortness of breath. She is bedbound and receives medications through her G-tube. LABORATORY: On admission, her white count is 9.7, H and H 11.9 and 37.2, platelet count 306,000, BU N and creatinine 30/0.46 and random glucose was 155. MICROBIOLOGY: Blood cultures show gram-negative rods and gram-positive cocci in pairs and chains, a nd she's growing Proteus mirabilis from her urine, which is sensitive to cefotaxime and tobramycin. She also has gram-positive cocci in pairs and chains and gram-negative rods in her blood. The patient was started on cefepime and vancomycin, to which I concur. A chest x-ray is normal. A CT scan of the cervical spine suspicious for syrinx seen in the upper cervical cord from the C4 leve l, extending into the lower brainstem and medulla. She has cervical spondylosis, degenerative enthe sopathy, moderate central canal stenosis at C4 to C5, C5 to C6. Mild central canal stenosis at C2 t o C3, C3 to C4 and C6 to C7. She also has osteopenia and multilevel foraminal narrowing. PAST MEDICAL HISTORY: Operations as outlined. FAMILY HISTORY: Noncontributory. SOCIAL HISTORY: She has dementia. She lives in a group home facility. ALLERGIES: NONE TO PENICILLIN, SULFA OR FOODS. MEDICATIONS: Per chart. REVIEW OF SYSTEMS: Noncontributory. PHYSICAL EXAMINATION: GENERAL: The patient is awake, responsive, in no acute distress. VITAL SIGNS: Stable. She is afebrile. SKIN: Without generalized rash. HEENT: Within normal limits. NECK: Supple. LYMPH NODES: None palpable. CHEST: Decreased breath sounds at the bases. HEART: Without murmur or gallop. ABDOMEN: Soft, nontender. G-tube in place. No organosplenomegaly or masses. EXTREMITIES: Without cyanosis, clubbing, or edema. RECTAL AND GENITAL: Deferred. NEUROLOGIC: The patient is confused. ANCILLARY LABORATORY DATA: Chest x-ray shows, as noted, normal chest. CT scan of the brain shows a trophy. Her urinalysis was 3+ leukocyte esterase and 160 white cells per high powered field. IMPRESSION AND PLAN: The patient presents now with sepsis secondary to urinary tract infection. Bl ood cultures, additional, are pending. We will continue her on vancomycin and cefepime. I want to thank the hospitalist for asking me to see this patient in consultation. Dictated By: ALDO CABEZAS MD, JD/VALARIE Conf#: [id number] DID#: [id number]
[2017-09-25] MEDS: ACETAMINOPHEN 325 MG TAB GTB PRN (22:06)
[2017-09-25] MEDS: GUAIFENESIN/DM 5ML CUP PO PRN (22:06)
[2017-09-26] VITALS (20 sets, daily range): BP systolic 122–171; BP diastolic 55–81; PULSE 79–103; RESP 16–20
[2017-09-26] MEDS: SOD CHLORIDE 0.45% 1,000 ML IV SCH ×4 (01:18→23:25)
[2017-09-26] MEDS: ACCU-CHEK XX SCH (02:00)
[2017-09-26] MEDS: GUAIFENESIN/DM 5ML CUP PO PRN ×2 (02:12→20:30)
[2017-09-26] MEDS: hydrALAzine 20 MG INJ IV PRN ×2 (06:30→20:30)
[2017-09-26 08:00] LABS: BASOPHIL # 0.1 10^3/ul (0.0-0.1); BASOPHILS % 0.5 % (0.0-2.0); EOSINOPHILS # 0.2 10^3/ul (0.0-0.5); EOSINOPHILS % 2.3 % (0.0-7.0); HEMATOCRIT 34.7 % (37.0-47.0); HEMOGLOBIN 11.4 g/dl (12.0-16.0); LYMPHOCYTES % 21.6 % (15.0-51.0); MEAN CORPUSCULAR HEMOGLOBIN 29.9 pg (29.0-33.0); MEAN CORPUSCULAR HGB CONC 32.9 g/dl (32.0-37.0); MEAN CORPUSCULAR VOLUME 91.1 fl (82.0-101.0); MEAN PLATELET VOLUME 10.3 fl (7.4-10.4); MONOCYTE # 0.8 10^3/ul (0.3-0.9); NEUTROPHILS % 66.1 % (39.0-77.0); PLATELET COUNT 321 10^3/UL (140-415); RED BLOOD COUNT 3.81 10^6/ul (4.20-5.40); RED CELL DISTRIBUTION WIDTH 13.3 % (11.5-14.5); WHITE BLOOD COUNT 9.1 10^3/ul (4.8-10.8)
[2017-09-26 08:21] LABS: CALCIUM 8.6 mg/dl (8.4-10.2); CREATININE 0.41 mg/dl (0.44-1.00); MAGNESIUM 1.8 mg/dl (1.7-2.5); PHOSPHORUS 3.2 mg/dl (2.5-4.9); POTASSIUM 3.5 mmol/L (3.5-5.1)
[2017-09-26] MEDS: ALBUTEROL 0.083% (NEB) 2.5 MG/3 ML AMP HHN SCH ×3 (08:37→20:52)
[2017-09-26] MEDS: FERROUS SULFATE 60 MG/ML 5ML CUP GTB SCH (08:43)
[2017-09-26] MEDS: AMLODIPINE 10 MG TAB GTB SCH (08:44)
[2017-09-26] MEDS: QUETIAPINE 25 MG TAB GTB SCH ×2 (08:44→20:30)
[2017-09-26] MEDS: ASCORBIC ACID 500 MG TAB GTB SCH (08:45)
[2017-09-26] MEDS: MEMANTINE 5 MG TAB NGT SCH (08:45)
[2017-09-26] MEDS: CHOLECALCIFEROL 2,000 UNIT CAP GTB SCH (08:45)
[2017-09-26] MEDS: CEFEPIME 1GM/50 ML (PMX) 50 ML IVPB SCH ×2 (08:45→20:29)
[2017-09-26] MEDS: LISINOPRIL 10 MG TAB GTB SCH (08:45)
[2017-09-26] MEDS: INSULIN ASPART [NOVOLOG] 3 ML PEN SC SCH ×4 (08:52→20:34)
[2017-09-26] MEDS: ENOXAPARIN 40 MG/0.4 ML SYG SC SCH (08:52)
[2017-09-26] MEDS: VANCOMYCIN 1 GM in NS 250 ML IVPB SCH (09:29)
--- NOTE | 2017-09-26 14:00 | PN ---
DATE: 09/26/2017 SUBJECTIVE: No events overnight. The patient is noncommunicative is lying comfortably in bed. She is afebrile. LABORATORIES: WBC today 9.1, no shift, no bands. BUN 12, creatinine 0.41. MICROBIOLOGY: Blood cultures since admission growing Proteus mirabilis and Enterococcus species. U rine culture grew Proteus mirabilis. Repeat blood cultures negative. DIAGNOSTICS: Chest x-ray on admission revealed normal chest x-ray. CT of the brain showed atrophy. ANTIMICROBIALS: The patient is on: 1. Vancomycin. 2. Cefepime. PHYSICAL EXAMINATION: GENERAL: This is a fragile, chronically ill-appearing, elderly woman who is in no distress. HEENT: Head atraumatic, normocephalic. Sclerae anicteric. Buccal mucosa dry. NECK: Supple. CHEST: Rise symmetrical. Breath sounds diminished to bases. HEART: S1, S2. ABDOMEN: Soft, bowel tones present. EXTREMITIES: Without cyanosis. ASSESSMENT: 1. Urinary tract infection with bacteremia, remains on appropriate antibiotics. 2. Diabetes. 3. Dementia. 4. Hypertension. 5. Dysphagia, status post percutaneous endoscopic gastrostomy in the past. PLAN: The patient remains stable. She is on appropriate antibiotics pending final sensitivities. 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 Dictated By: BOUCHRA MACIAS FREELANCE PHOTOGRAPHER for ALDO VILLAFANA/VALARIE Conf#: [id number] DID#: [id number]
--- NOTE | 2017-09-26 14:01 | PN ---
Date/Time of Note Date/Time of Note DATE: 09/26/17 TIME: 13:59 Assessment/Plan VTE Prophylaxis VTE Prophylaxis Intervention: heparin, SCD's Lines/Catheters IV Catheter Type (from Nrsg): Peripheral IV Urinary Cath still in place: Yes Reason Cath still needed: terminal illness/intractable pain Assessment/Plan Chief Complaint/Hosp Course 1. AMS secondary to UTI/bacteremia - patient currently afebrile after being given Tylenol in EMS and white count normal - UA+ for infection. 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 -pending neuro recs, will attempt to speak with son regarding if they would like more workup vs outpatient followup with her own neurologist. 2. anemia -stable, likely chronic -no signs of GI bleed 3. schizophrenia - Continue on Seroquel 4. DM - a1c noted - ISS and accuchecks 5. Dementia - Continue on Memantine 6. HTN - continue home medications via GTB - adjust as needed 7. Cough - Per family, experiencing cough for 4 days prior to admission - CXR negative for acute cardiopulmonary disease - Guaifenesin as needed - Neb treatments -? if patient is having a lot of secretions vs URI 8. DVT ppx - lovenox 9. GI ppx - Pepcid 10. Diet - Pureed but needs to be fed - has peg tube, but patient's family states she is taking pureed -speech therapy caren saw patient, stated if patient shows signs of aspiration, make NPO, restart tube feeds if necessary -nursing is feeding the patient -diabetic diet 11. Code status - Full code 12. Disposition -neuro recs appreciated -unable to do MRI due to metal in L shoulder -? CT for syrinx? -likely dispo back to SNF once abx finalized Problems: Subjective 24 Hr Interval Summary Free Text/Dictation no acute overnight events Exam/Review of Systems Vital Signs Vitals Vital Signs Date Time Temp Pulse Resp B/P Pulse Ox O2 Delivery O2 Flow Rate FiO2 09/26/17 13:52 98.1 100 18 158/71 98 09/26/17 12:50 Room Air 09/26/17 08:35 21 09/24/17 17:20 1.0 Intake and Output 09/25/17 09/25/17 09/26/17 15:00 23:00 07:00 Intake Total 550 ml 1050 ml 1080 ml Output Total 1500 ml 1550 ml Balance 550 ml -450 ml -470 ml Exam Physical exam General: Patient is laying in bed , arousable Mentation: Patient is alert and oriented to self/family periodically, not to situation Head: Normocephalic atraumatic Eyes: EOMI, pupils reactive to light Neck: Supple, nontender, midline Respiratory: Clear to auscultation bilaterally Cardiovascular: regular rate, no obvious murmurs Gastrointestinal: non-tender to palpation, bowel sounds heard. Neurological: Moves all extremities spontaneously, but not to command due to mentation Results Result Diagram: 09/26/17 0711 09/26/17 0711 Results 24 hrs Laboratory Tests Test 09/25/17 17:27 09/25/17 21:19 09/26/17 07:11 09/26/17 08:39 Bedside Glucose 129 136 151 White Blood Count 9.1 Red Blood Count 3.81 L Hemoglobin 11.4 L Hematocrit 34.7 L Mean Corpuscular Volume 91.1 Mean Corpuscular Hemoglobin 29.9 Mean Corpuscular Hemoglobin Concent 32.9 Red Cell Distribution Width 13.3 Platelet Count 321 Mean Platelet Volume 10.3 Neutrophils % 66.1 Lymphocytes % 21.6 Monocytes % 9.0 Eosinophils % 2.3 Basophils % 0.5 Nucleated Red Blood Cells % 0.0 Neutrophils # 6.0 Lymphocytes # 2.0 Monocytes # 0.8 Eosinophils # 0.2 Basophils # 0.1 Nucleated Red Blood Cells # 0.0 Sodium Level 143 Potassium Level 3.5 Chloride Level 110 Carbon Dioxide Level 24 Anion Gap 13 Blood Urea Nitrogen 12 Creatinine 0.41 L Glucose Level 128 Calcium Level 8.6 Phosphorus Level 3.2 Magnesium Level 1.8 Vancomycin Level Trough 6.0 L Test 09/26/17 12:16 Bedside Glucose 132 Medications Medications Current Medications Ondansetron HCl (Zofran Inj) 4 mg Q6H PRN IV NAUSEA AND/OR VOMITING; Start 09/23/17 at 13:30 Acetaminophen (Tylenol Tab) 650 mg Q6H PRN GTB PAIN LEVEL 1-3 OR FEVER Last administered on 09/25/17 22:06; Admin Dose 650 MG; Start 09/23/17 at 13:30 Magnesium Hydroxide (Milk Of Mag) 30 ml DAILY PRN PO CONSTIPATION; Start at 13:30 Bisacodyl (Dulcolax) 5 mg DAILY PRN PO CONSTIPATION; Start 09/23/17 at 13:30 Enoxaparin Sodium (Lovenox) 40 mg DAILY SC Last administered on 09/26/17 08:52 ; Admin Dose 40 MG; Start 09/24/17 at 09:00 Diagnostic Test (Pha) (Accu-Chek) 1 ea 02 XX ; Start 09/24/17 at 02:00 Miscellaneous Information 1 ea NOTE XX ; Start 09/23/17 at 17:30 Glucose (Glutose) 15 gm Q15M PRN PO DECREASED GLUCOSE; Start 09/23/17 at 17:30 Glucose (Glutose) 22.5 gm Q15M PRN PO DECREASED GLUCOSE; Start 09/23/17 at 17: 30 Dextrose (D50w Syringe) 25 ml Q15M PRN IV DECREASED GLUCOSE; Start 09/23/17 at 17:30 Dextrose (D50w Syringe) 50 ml Q15M PRN IV DECREASED GLUCOSE; Start 09/23/17 at 17:30 Glucagon (Glucagen) 1 mg Q15M PRN IM DECREASED GLUCOSE; Start 09/23/17 at 17:30 Glucose (Glutose) 15 gm Q15M PRN BUCCAL DECREASED GLUCOSE; Start 09/23/17 at 17 :30 Ascorbic Acid (Vitamin C) 500 mg DAILY GTB Last administered on 09/26/17 08:45 ; Admin Dose 500 MG; Start 09/24/17 at 09:00 Clonidine (Catapres) 0.2 mg BID GTB Last administered on 09/26/17 08:44; Admin Dose 0.2 MG; Start 09/23/17 at 21:00 Ferrous Sulfate (Feosol Liquid Cup) 300 mg DAILY GTB Last administered on 08:43; Admin Dose 300 MG; Start 09/24/17 at 09:00 Lisinopril (Zestril) 10 mg DAILY GTB Last administered on 09/26/17 08:45; Admin Dose 10 MG; Start 09/24/17 at 09:00 Memantine (Namenda) 5 mg DAILY NGT Last administered on 09/26/17 08:45; Admin Dose 5 MG; Start 09/24/17 at 09:00 Quetiapine Fumarate (Seroquel) 12.5 mg BID GTB Last administered on 09/26/17 08:44; Admin Dose 12.5 MG; Start 09/23/17 at 21:00 Cholecalciferol (Vitamin D) 2,000 unit DAILY GTB Last administered on 08:45; Admin Dose 2,000 UNIT; Start 09/24/17 at 09:00 Guaifenesin/ Dextromethorphan (Robitussin Dm Liquid Cup) 5 ml Q4H PRN PO cough Last administered on 09/26/17 02:12; Admin Dose 5 ML; Start 09/23/17 at 18:00 Hydralazine HCl 10 mg 10 mg Q6 PRN IV SBP >160 Last administered on 09/26/17 06:30; Admin Dose 10 MG; Start 09/23/17 at 18:00 Vancomycin HCl 250 ml @ 125 mls/hr Q24H IVPB Last administered on 09/26/17 09 :29; Admin Dose 125 MLS/HR; Start 09/24/17 at 08:00; Stop 09/26/17 at 14:00 Cefepime HCl (Maxipime 1gm/50 ml (Pmx)) 50 ml @ 100 mls/hr Q12 IVPB Last administered on 09/26/17 08:45; Admin Dose 100 MLS/HR; Start 09/24/17 at 12:00 Amlodipine Besylate 10 mg 10 mg DAILY GTB Last administered on 09/26/17 08:44 ; Admin Dose 10 MG; Start 09/26/17 at 09:00 Sodium Chloride 1,000 ml @ 70 mls/hr [id number] IV Last administered on 05:10; Admin Dose 70 MLS/HR; Start 09/25/17 at 11:00 Vancomycin HCl/ Dextrose/Water (Vancocin/D5W) 150 ml @ 75 mls/hr Q12H IVPB ; Start 09/26/17 at 20:00 CYNTHIA LASSITER Sep 26, 2017 14:01
[2017-09-26] MEDS: ACETAMINOPHEN 325 MG TAB GTB PRN (14:58)
[2017-09-26] MEDS: VANCOMYCIN 750 MG in DEXTROSE 5% 150 ML IVPB SCH (20:03)
[2017-09-27] VITALS (15 sets, daily range): BP systolic 114–165; BP diastolic 56–83; PULSE 80–94; RESP 18–19
[2017-09-27] MEDS: ACCU-CHEK XX SCH (02:00)
[2017-09-27] MEDS: SOD CHLORIDE 0.45% 1,000 ML IV SCH ×2 (05:54→17:36)
[2017-09-27 06:03] LABS: BASOPHILS % 0.5 % (0.0-2.0); EOSINOPHILS # 0.2 10^3/ul (0.0-0.5); EOSINOPHILS % 1.9 % (0.0-7.0); HEMATOCRIT 34.5 % (37.0-47.0); LYMPHOCYTES # 1.6 10^3/ul (0.8-2.9); LYMPHOCYTES % 19.3 % (15.0-51.0); MEAN CORPUSCULAR HEMOGLOBIN 29.3 pg (29.0-33.0); MEAN CORPUSCULAR HGB CONC 31.9 g/dl (32.0-37.0); MEAN CORPUSCULAR VOLUME 91.8 fl (82.0-101.0); MEAN PLATELET VOLUME 10.1 fl (7.4-10.4); MONOCYTE # 0.7 10^3/ul (0.3-0.9); MONOCYTES % 8.6 % (0.0-11.0); NEUTROPHIL # 5.6 10^3/ul (1.6-7.5); PLATELET COUNT 299 10^3/UL (140-415); RED BLOOD COUNT 3.76 10^6/ul (4.20-5.40); RED CELL DISTRIBUTION WIDTH 13.5 % (11.5-14.5); WHITE BLOOD COUNT 8.1 10^3/ul (4.8-10.8)
[2017-09-27 06:40] LABS: CALCIUM 8.3 mg/dl (8.4-10.2); CREATININE 0.48 mg/dl (0.44-1.00); MAGNESIUM 1.9 mg/dl (1.7-2.5); PHOSPHORUS 3.6 mg/dl (2.5-4.9); POTASSIUM 3.3 mmol/L (3.5-5.1)
[2017-09-27] MEDS: ALBUTEROL 0.083% (NEB) 2.5 MG/3 ML AMP HHN SCH ×3 (07:59→19:55)
[2017-09-27] MEDS: VANCOMYCIN 750 MG in DEXTROSE 5% 150 ML IVPB SCH ×2 (08:00→12:51)
[2017-09-27] MEDS: INSULIN ASPART [NOVOLOG] 3 ML PEN SC SCH ×4 (08:44→21:00)
[2017-09-27] MEDS: CEFEPIME 1GM/50 ML (PMX) 50 ML IVPB SCH ×2 (08:45→21:16)
[2017-09-27] MEDS: QUETIAPINE 25 MG TAB GTB SCH ×2 (08:45→21:16)
[2017-09-27] MEDS: FERROUS SULFATE 60 MG/ML 5ML CUP GTB SCH (08:45)
[2017-09-27] MEDS: CHOLECALCIFEROL 2,000 UNIT CAP GTB SCH (08:45)
[2017-09-27] MEDS: ASCORBIC ACID 500 MG TAB GTB SCH (08:45)
[2017-09-27] MEDS: ENOXAPARIN 40 MG/0.4 ML SYG SC SCH (08:45)
[2017-09-27] MEDS: MEMANTINE 5 MG TAB NGT SCH (08:46)
[2017-09-27] MEDS: AMLODIPINE 10 MG TAB GTB SCH (08:46)
[2017-09-27] MEDS: LISINOPRIL 10 MG TAB GTB SCH (08:46)
[2017-09-27] MEDS ORDERED: POTASSIUM CHLORIDE 250 ML IVPB ONE (11:30)
[2017-09-27] MEDS: GUAIFENESIN/DM 5ML CUP PO PRN (13:10)
[2017-09-27] MEDS: ACETAMINOPHEN 325 MG TAB GTB PRN (13:10)
--- NOTE | 2017-09-27 13:27 | CONS ---
Date/Time of Note Date/Time of Note DATE: 09/27/17 TIME: 13:24 Assessment/Plan Assessment/Plan Chief Complaint/Hosp Course SUBJECTIVE: No events overnight. The patient is noncommunicative, lying comfortably in bed. No fevers MICROBIOLOGY: Blood cultures since admission growing Proteus mirabilis and Enterococcus species. Urine culture grew Proteus mirabilis. Repeat blood cultures negative. DIAGNOSTICS: Chest x-ray on admission revealed normal chest x-ray. CT of the brain showed atrophy. ANTIMICROBIALS: 1. Vancomycin. 2. Cefepime. ALL: PCN PHYSICAL EXAMINATION: GENERAL: This is a fragile, chronically ill-appearing, elderly woman who is in no distress. HEENT: Head atraumatic, normocephalic. Sclerae anicteric. Buccal mucosa dry. NECK: Supple. CHEST: Rise symmetrical. Breath sounds diminished to bases. HEART: S1, S2. ABDOMEN: Soft, bowel tones present. EXTREMITIES: Without cyanosis. ASSESSMENT: 1. Urinary tract infection with bacteremia. 2. Diabetes. 3. Dementia. 4. Hypertension. 5. Dysphagia, status post percutaneous endoscopic gastrostomy in the past. PLAN: The patient remains stable. Will change Cefepime to Rocephin, continue Vanco, will keep on abx for 2 weeks to complete treatment for bacteremia. DW staff Problems: Consultation Date/Type/Reason Admit Date/Time Sep 23, 2017 at 12:22 Initial Consult Date Type of Consultation: id Exam/Review of Systems Vital Signs Vitals Vital Signs Date Time Temp Pulse Resp B/P Pulse Ox O2 Delivery O2 Flow Rate FiO2 09/27/17 12:00 97.9 81 139/64 Room Air 09/27/17 10:00 96 09/27/17 08:00 22 21 09/24/17 17:20 1.0 Intake and Output 09/26/17 09/26/17 09/27/17 14:59 22:59 06:59 Intake Total 1440 ml 1020 ml Output Total 800 ml 700 ml Balance 640 ml 320 ml Results Result Diagram: 09/27/17 0544 09/27/17 0544 Results 24 hrs Laboratory Tests Test 09/26/17 17:22 09/26/17 20:33 09/27/17 05:44 09/27/17 08:16 Bedside Glucose 119 147 151 White Blood Count 8.1 Red Blood Count 3.76 L Hemoglobin 11.0 L Hematocrit 34.5 L Mean Corpuscular Volume 91.8 Mean Corpuscular Hemoglobin 29.3 Mean Corpuscular Hemoglobin Concent 31.9 L Red Cell Distribution Width 13.5 Platelet Count 299 Mean Platelet Volume 10.1 Neutrophils % 69.0 Lymphocytes % 19.3 Monocytes % 8.6 Eosinophils % 1.9 Basophils % 0.5 Nucleated Red Blood Cells % 0.0 Neutrophils # 5.6 Lymphocytes # 1.6 Monocytes # 0.7 Eosinophils # 0.2 Basophils # 0.0 Nucleated Red Blood Cells # 0.0 Sodium Level 143 Potassium Level 3.3 L Chloride Level 110 Carbon Dioxide Level 24 Anion Gap 12 Blood Urea Nitrogen 11 Creatinine 0.48 Glucose Level 135 Calcium Level 8.3 L Phosphorus Level 3.6 Magnesium Level 1.9 Test 09/27/17 12:21 Bedside Glucose 165 Medications Medications Current Medications Ondansetron HCl (Zofran Inj) 4 mg Q6H PRN IV NAUSEA AND/OR VOMITING; Start 09/23/17 at 13:30 Acetaminophen (Tylenol Tab) 650 mg Q6H PRN GTB PAIN LEVEL 1-3 OR FEVER Last administered on 09/27/17 13:10; Admin Dose 650 MG; Start 09/23/17 at 13:30 Magnesium Hydroxide (Milk Of Mag) 30 ml DAILY PRN PO CONSTIPATION; Start at 13:30 Bisacodyl (Dulcolax) 5 mg DAILY PRN PO CONSTIPATION; Start 09/23/17 at 13:30 Enoxaparin Sodium (Lovenox) 40 mg DAILY SC Last administered on 09/27/17 08:45 ; Admin Dose 40 MG; Start 09/24/17 at 09:00 Diagnostic Test (Pha) (Accu-Chek) 1 ea 02 XX ; Start 09/24/17 at 02:00 Miscellaneous Information 1 ea NOTE XX ; Start 09/23/17 at 17:30 Glucose (Glutose) 15 gm Q15M PRN PO DECREASED GLUCOSE; Start 09/23/17 at 17:30 Glucose (Glutose) 22.5 gm Q15M PRN PO DECREASED GLUCOSE; Start 09/23/17 at 17: 30 Dextrose (D50w Syringe) 25 ml Q15M PRN IV DECREASED GLUCOSE; Start 09/23/17 at 17:30 Dextrose (D50w Syringe) 50 ml Q15M PRN IV DECREASED GLUCOSE; Start 09/23/17 at 17:30 Glucagon (Glucagen) 1 mg Q15M PRN IM DECREASED GLUCOSE; Start 09/23/17 at 17:30 Glucose (Glutose) 15 gm Q15M PRN BUCCAL DECREASED GLUCOSE; Start 09/23/17 at 17 :30 Ascorbic Acid (Vitamin C) 500 mg DAILY GTB Last administered on 09/27/17 08:45 ; Admin Dose 500 MG; Start 09/24/17 at 09:00 Clonidine (Catapres) 0.2 mg BID GTB Last administered on 09/27/17 08:45; Admin Dose 0.2 MG; Start 09/23/17 at 21:00 Ferrous Sulfate (Feosol Liquid Cup) 300 mg DAILY GTB Last administered on 08:45; Admin Dose 300 MG; Start 09/24/17 at 09:00 Lisinopril (Zestril) 10 mg DAILY GTB Last administered on 09/27/17 08:46; Admin Dose 10 MG; Start 09/24/17 at 09:00 Memantine (Namenda) 5 mg DAILY NGT Last administered on 09/27/17 08:46; Admin Dose 5 MG; Start 09/24/17 at 09:00 Quetiapine Fumarate (Seroquel) 12.5 mg BID GTB Last administered on 09/27/17 08:45; Admin Dose 12.5 MG; Start 09/23/17 at 21:00 Cholecalciferol (Vitamin D) 2,000 unit DAILY GTB Last administered on 08:45; Admin Dose 2,000 UNIT; Start 09/24/17 at 09:00 Guaifenesin/ Dextromethorphan (Robitussin Dm Liquid Cup) 5 ml Q4H PRN PO cough Last administered on 09/27/17 13:10; Admin Dose 5 ML; Start 09/23/17 at 18:00 Hydralazine HCl 10 mg 10 mg Q6 PRN IV SBP >160 Last administered on 09/26/17 20:30; Admin Dose 10 MG; Start 09/23/17 at 18:00 Cefepime HCl (Maxipime 1gm/50 ml (Pmx)) 50 ml @ 100 mls/hr Q12 IVPB Last administered on 09/27/17 08:45; Admin Dose 100 MLS/HR; Start 09/24/17 at 12:00 Amlodipine Besylate 10 mg 10 mg DAILY GTB Last administered on 09/27/17 08:46 ; Admin Dose 10 MG; Start 09/26/17 at 09:00 Sodium Chloride 1,000 ml @ 70 mls/hr [id number] IV Last administered on 23:25; Admin Dose 70 MLS/HR; Start 09/25/17 at 11:00 Vancomycin HCl 750 mg/Dextrose/ Water 150 ml @ 75 mls/hr Q12H IVPB Last administered on 09/27/17 12:51; Admin Dose 75 MLS/HR; Start 09/26/17 at 20:00 Potassium Chloride (KCl 40 MEQ/250 ML NS) 250 ml @ 62.5 mls/hr ONCE ONCE IVPB Last administered on 09/27/17 12:16; Admin Dose 62.5 MLS/HR; Start 09/27/17 at 11:30; Stop 09/27/17 at 15:29 BOUCHRA MACIAS NP Sep 27, 2017 13:27
--- NOTE | 2017-09-27 14:17 | PN ---
Date/Time of Note Date/Time of Note DATE: 09/27/17 TIME: 14:13 Assessment/Plan VTE Prophylaxis VTE Prophylaxis Intervention: LMWH, SCD's Lines/Catheters IV Catheter Type (from Nrsg): Peripheral IV Urinary Cath still in place: Yes Reason Cath still needed: terminal illness/intractable pain Assessment/Plan Chief Complaint/Hosp Course 1. AMS secondary to UTI/bacteremia - patient currently afebrile after being given Tylenol in EMS and white count normal - UA+ for infection. 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 -will hold off on further neuro intervention for now given patient's return to baseline, to follow up with outpatient neurologist. 2. anemia -stable, likely chronic -no signs of GI bleed 3. schizophrenia - Continue on Seroquel 4. DM - a1c noted - ISS and accuchecks 5. Dementia - Continue on Memantine 6. HTN - continue home medications via GTB - adjust as needed 7. Cough - Per family, experiencing cough for 4 days prior to admission - CXR negative for acute cardiopulmonary disease - Guaifenesin as needed - Neb treatments -? if patient is having a lot of secretions vs URI - congestion increased on R side, CT ordered 8. DVT ppx - lovenox 9. GI ppx - Pepcid 10. Diet - Pureed but needs to be fed - has peg tube, but patient's family states she is taking pureed -speech therapy caren saw patient, stated if patient shows signs of aspiration, make NPO, restart tube feeds if necessary -nursing is feeding the patient -diabetic diet 11. Code status - Full code 12. Disposition -ceftriaxone to 10/07 for 2 weeks total abx - CT pending for R sided congestion -back to baseline mentation -transfer back to SNF when stable Problems: Subjective 24 Hr Interval Summary Free Text/Dictation no acute overnight events. Exam/Review of Systems Vital Signs Vitals Vital Signs Date Time Temp Pulse Resp B/P Pulse Ox O2 Delivery O2 Flow Rate FiO2 09/27/17 13:52 89 20 94 21 11/9/17 13:45 97.3 114/56 09/27/17 12:00 Room Air 09/24/17 17:20 1.0 Intake and Output 09/26/17 09/26/17 09/27/17 14:59 22:59 06:59 Intake Total 1440 ml 1020 ml Output Total 800 ml 700 ml Balance 640 ml 320 ml Exam Physical exam General: Patient is laying in bed , arousable Mentation: Patient is alert and oriented to self/family periodically, not to situation Head: Normocephalic atraumatic Eyes: EOMI, pupils reactive to light Neck: Supple, nontender, midline Respiratory: congestion heard on R side, clear left. Cardiovascular: regular rate, no obvious murmurs Gastrointestinal: non-tender to palpation, bowel sounds heard. Neurological: Moves all extremities spontaneously, but not to command due to mentation Results Result Diagram: 09/27/17 0544 09/27/17 0544 Results 24 hrs Laboratory Tests Test 09/26/17 17:22 09/26/17 20:33 09/27/17 05:44 09/27/17 08:16 Bedside Glucose 119 147 151 White Blood Count 8.1 Red Blood Count 3.76 L Hemoglobin 11.0 L Hematocrit 34.5 L Mean Corpuscular Volume 91.8 Mean Corpuscular Hemoglobin 29.3 Mean Corpuscular Hemoglobin Concent 31.9 L Red Cell Distribution Width 13.5 Platelet Count 299 Mean Platelet Volume 10.1 Neutrophils % 69.0 Lymphocytes % 19.3 Monocytes % 8.6 Eosinophils % 1.9 Basophils % 0.5 Nucleated Red Blood Cells % 0.0 Neutrophils # 5.6 Lymphocytes # 1.6 Monocytes # 0.7 Eosinophils # 0.2 Basophils # 0.0 Nucleated Red Blood Cells # 0.0 Sodium Level 143 Potassium Level 3.3 L Chloride Level 110 Carbon Dioxide Level 24 Anion Gap 12 Blood Urea Nitrogen 11 Creatinine 0.48 Glucose Level 135 Calcium Level 8.3 L Phosphorus Level 3.6 Magnesium Level 1.9 Test 09/27/17 12:21 Bedside Glucose 165 Medications Medications Current Medications Ondansetron HCl (Zofran Inj) 4 mg Q6H PRN IV NAUSEA AND/OR VOMITING; Start 09/23/17 at 13:30 Acetaminophen (Tylenol Tab) 650 mg Q6H PRN GTB PAIN LEVEL 1-3 OR FEVER Last administered on 09/27/17 13:10; Admin Dose 650 MG; Start 09/23/17 at 13:30 Magnesium Hydroxide (Milk Of Mag) 30 ml DAILY PRN PO CONSTIPATION; Start at 13:30 Bisacodyl (Dulcolax) 5 mg DAILY PRN PO CONSTIPATION; Start 09/23/17 at 13:30 Enoxaparin Sodium (Lovenox) 40 mg DAILY SC Last administered on 09/27/17 08:45 ; Admin Dose 40 MG; Start 09/24/17 at 09:00 Diagnostic Test (Pha) (Accu-Chek) 1 ea 02 XX ; Start 09/24/17 at 02:00 Miscellaneous Information 1 ea NOTE XX ; Start 09/23/17 at 17:30 Glucose (Glutose) 15 gm Q15M PRN PO DECREASED GLUCOSE; Start 09/23/17 at 17:30 Glucose (Glutose) 22.5 gm Q15M PRN PO DECREASED GLUCOSE; Start 09/23/17 at 17: 30 Dextrose (D50w Syringe) 25 ml Q15M PRN IV DECREASED GLUCOSE; Start 09/23/17 at 17:30 Dextrose (D50w Syringe) 50 ml Q15M PRN IV DECREASED GLUCOSE; Start 09/23/17 at 17:30 Glucagon (Glucagen) 1 mg Q15M PRN IM DECREASED GLUCOSE; Start 09/23/17 at 17:30 Glucose (Glutose) 15 gm Q15M PRN BUCCAL DECREASED GLUCOSE; Start 09/23/17 at 17 :30 Ascorbic Acid (Vitamin C) 500 mg DAILY GTB Last administered on 09/27/17 08:45 ; Admin Dose 500 MG; Start 09/24/17 at 09:00 Clonidine (Catapres) 0.2 mg BID GTB Last administered on 09/27/17 08:45; Admin Dose 0.2 MG; Start 09/23/17 at 21:00 Ferrous Sulfate (Feosol Liquid Cup) 300 mg DAILY GTB Last administered on 08:45; Admin Dose 300 MG; Start 09/24/17 at 09:00 Lisinopril (Zestril) 10 mg DAILY GTB Last administered on 09/27/17 08:46; Admin Dose 10 MG; Start 09/24/17 at 09:00 Memantine (Namenda) 5 mg DAILY NGT Last administered on 09/27/17 08:46; Admin Dose 5 MG; Start 09/24/17 at 09:00 Quetiapine Fumarate (Seroquel) 12.5 mg BID GTB Last administered on 09/27/17 08:45; Admin Dose 12.5 MG; Start 09/23/17 at 21:00 Cholecalciferol (Vitamin D) 2,000 unit DAILY GTB Last administered on 08:45; Admin Dose 2,000 UNIT; Start 09/24/17 at 09:00 Guaifenesin/ Dextromethorphan (Robitussin Dm Liquid Cup) 5 ml Q4H PRN PO cough Last administered on 09/27/17 13:10; Admin Dose 5 ML; Start 09/23/17 at 18:00 Hydralazine HCl 10 mg 10 mg Q6 PRN IV SBP >160 Last administered on 09/26/17 20:30; Admin Dose 10 MG; Start 09/23/17 at 18:00 Cefepime HCl (Maxipime 1gm/50 ml (Pmx)) 50 ml @ 100 mls/hr Q12 IVPB Last administered on 09/27/17 08:45; Admin Dose 100 MLS/HR; Start 09/24/17 at 12:00 Amlodipine Besylate 10 mg 10 mg DAILY GTB Last administered on 09/27/17 08:46 ; Admin Dose 10 MG; Start 09/26/17 at 09:00 Sodium Chloride 1,000 ml @ 70 mls/hr [id number] IV Last administered on 23:25; Admin Dose 70 MLS/HR; Start 09/25/17 at 11:00 Vancomycin HCl 750 mg/Dextrose/ Water 150 ml @ 75 mls/hr Q12H IVPB Last administered on 09/27/17 12:51; Admin Dose 75 MLS/HR; Start 09/26/17 at 20:00 Potassium Chloride (KCl 40 MEQ/250 ML NS) 250 ml @ 62.5 mls/hr ONCE ONCE IVPB Last administered on 09/27/17 12:16; Admin Dose 62.5 MLS/HR; Start 09/27/17 at 11:30; Stop 09/27/17 at 15:29 CYNTHIA LASSITER Sep 27, 2017 14:16
--- NOTE | 2017-09-27 17:50 | RADRPT ---
PROCEDURE: CT Chest without contrast. CLINICAL INDICATION: Cough and congestion. TECHNIQUE: Helical axial sections were obtained through the chest without intravenous contrast enh ancement. Coronal and sagittal reformatted images were obtained from the axial source images. Total exam DLP is 556.38 mGy-cm. CTDIvol is 16.56 mGy. One or more of the following dose reduction silvestre hniques were used: Automated exposure control, adjustment of the mA and/or kV according to patient s ize, use of iterative reconstruction technique. COMPARISON: None FINDINGS: There is mild linear scarring or atelectasis at both lung bases posteriorly. The lungs are otherwise clear with no other airspace or interstitial disease. There is no pulmonary nodule or mass lesion. There is no mediastinal or hilar lymphadenopathy or mass. There is no axillary, supraclavicular, or internal mammary lymphadenopathy. The thoracic aorta is not dilated. There is calcification in the aorta consistent with atheroscleros is. There is enlargement of the central pulmonary arteries consistent with pulmonary artery hypertension . The heart size is normal. There is coronary artery calcification. There is no pleural effusion or pericardial effusion. Images through the upper abdomen demonstrate normal visualized portions of the liver, spleen, and ad renals. The gallbladder is surgically absent with clips noted. The common bile duct appears dilated. There are degenerative changes of the spine. There is no acute fracture or lytic lesion. There has b een previous open reduction and internal fixation of the proximal left humerus with a lateral plate and multiple screws. IMPRESSION: 1. Mild linear scarring or atelectasis at the lung bases posteriorly. 2. Atherosclerosis. 3. Pulmonary artery hypertension. 4. Coronary artery calcification. 5. Status post cholecystectomy. 6. Dilated common bile duct. Correlation with MRCP should be considered. 7. Degenerative changes of the spine. 8. Prior open reduction and internal fixation of the proximal left humerus. 9. Otherwise unremarkable study. RPTAT: QQ .Regino Chicas MD, MD Date Time Electronically viewed and signed by .Regino Chicas MD, on 09/27/2017 17:50 .R/
[2017-09-28] VITALS (14 sets, daily range): BP systolic 136–179; BP diastolic 62–95; PULSE 71–89; RESP 18–21
[2017-09-28] MEDS: VANCOMYCIN 750 MG in DEXTROSE 5% 150 ML IVPB SCH ×3 (01:03→14:38)
[2017-09-28] MEDS: ACCU-CHEK XX SCH (02:00)
[2017-09-28] MEDS: ACETAMINOPHEN 325 MG TAB GTB PRN (03:44)
[2017-09-28] MEDS: GUAIFENESIN/DM 5ML CUP PO PRN (03:44)
[2017-09-28 06:17] LABS: BASOPHIL # 0.1 10^3/ul (0.0-0.1); BASOPHILS % 0.7 % (0.0-2.0); EOSINOPHILS # 0.2 10^3/ul (0.0-0.5); EOSINOPHILS % 2.3 % (0.0-7.0); HEMOGLOBIN 10.9 g/dl (12.0-16.0); LYMPHOCYTES # 1.7 10^3/ul (0.8-2.9); LYMPHOCYTES % 22.5 % (15.0-51.0); MEAN CORPUSCULAR HEMOGLOBIN 29.5 pg (29.0-33.0); MEAN CORPUSCULAR HGB CONC 32.1 g/dl (32.0-37.0); MEAN CORPUSCULAR VOLUME 92.1 fl (82.0-101.0); MONOCYTE # 0.7 10^3/ul (0.3-0.9); MONOCYTES % 10.1 % (0.0-11.0); NEUTROPHIL # 4.7 10^3/ul (1.6-7.5); NEUTROPHILS % 63.7 % (39.0-77.0); PLATELET COUNT 290 10^3/UL (140-415); RED BLOOD COUNT 3.69 10^6/ul (4.20-5.40); RED CELL DISTRIBUTION WIDTH 13.5 % (11.5-14.5); WHITE BLOOD COUNT 7.3 10^3/ul (4.8-10.8)
[2017-09-28 07:00] LABS: CALCIUM 8.6 mg/dl (8.4-10.2); CREATININE 0.47 mg/dl (0.44-1.00); MAGNESIUM 1.8 mg/dl (1.7-2.5); PHOSPHORUS 3.4 mg/dl (2.5-4.9)
[2017-09-28] MEDS: ALBUTEROL 0.083% (NEB) 2.5 MG/3 ML AMP HHN SCH ×3 (08:00→20:00)
--- NOTE | 2017-09-28 08:03 | RADRPT ---
PROCEDURE: US Abdomen (right upper quadrant). CLINICAL INDICATION: Right upper quadrant abdomen pain. TECHNIQUE: Multiple real-time longitudinal and transverse images of the right upper quadrant of th e abdomen were acquired utilizing a curved array transducer. Images were reviewed on a high-resoluti on PACS workstation. COMPARISON: None FINDINGS: The liver is normal in size and diffusely increased in echogenicity. There is no focal hepatic lesion. Color Doppler and pulsed Doppler sonography demonstrate normal a ntegrade flow in the portal vein. The gallbladder is surgically absent. The bile ducts are dilated with the common bile duct measuring 19.5 mm in diameter. The pancreas is not visualized due to overlying bowel gas. No free fluid is present. The right kidney measures 10.8 x 5.2 cm. There is normal echogenicity of the right kidney. There is no perinephric fluid collection. No hydronephrosis, mass, or calculus is seen. IMPRESSION: 1. Fatty metamorphosis of the liver. 2. Status post cholecystectomy. 3. Dilated common bile duct. Correlation with MRCP or ERCP should be considered. 4. Otherwise unremarkable right upper quadrant abdomen ultrasound. RPTAT: QQ .Regino Chicas MD, MD Date Time Electronically viewed and signed by .Regino Chicas MD, on 09/28/2017 08:03 .R/
[2017-09-28] MEDS: INSULIN ASPART [NOVOLOG] 3 ML PEN SC SCH ×4 (08:15→21:00)
[2017-09-28] MEDS: CEFEPIME 1GM/50 ML (PMX) 50 ML IVPB SCH (10:22)
[2017-09-28] MEDS: ASCORBIC ACID 500 MG TAB GTB SCH (10:23)
[2017-09-28] MEDS: LISINOPRIL 10 MG TAB GTB SCH (10:23)
[2017-09-28] MEDS: AMLODIPINE 10 MG TAB GTB SCH (10:23)
[2017-09-28] MEDS: MEMANTINE 5 MG TAB NGT SCH (10:23)
[2017-09-28] MEDS: CHOLECALCIFEROL 2,000 UNIT CAP GTB SCH (10:23)
[2017-09-28] MEDS: QUETIAPINE 25 MG TAB GTB SCH ×2 (10:24→21:20)
[2017-09-28] MEDS: FERROUS SULFATE 60 MG/ML 5ML CUP GTB SCH (10:24)
[2017-09-28] MEDS: ENOXAPARIN 40 MG/0.4 ML SYG SC SCH (10:25)
[2017-09-28] MEDS: SOD CHLORIDE 0.45% 1,000 ML IV SCH (10:30)
--- NOTE | 2017-09-28 11:11 | CONS ---
Date/Time of Note Date/Time of Note DATE: 09/28/17 TIME: 11:01 Assessment/Plan Assessment/Plan Chief Complaint/Hosp Course Impression: 1. dilated CBD: CBD can be dilated with age and after cholecystectomy. Thus, since there is no abnormal LFT, the dilated CBD likely physiologic and no further w/u necessary. 2. isolated elevated alk phos without elevate bilirubin and transaminases 3. iron deficiency anemia 4. No abdominal pain, no n/v, no symptoms associated with choledocholithiasis Recommendation: 1. no need for an invasive procedure such as ERCP for reason stated in impression 2. patient still iron deficient despite oral iron replacement therapy. As such, I will change to IV iron replacement therapy 3. stool for occult blood to r/o GIB 4. check GGT for elevated alk phoos 5. continue supportive care Problems: Consultation Date/Type/Reason Admit Date/Time Sep 23, 2017 at 12:22 Date of Consultation: Sep 28, 2017 Type of Consultation: GI Reason for Consultation dilated CBD, iron deficiency anemia Hx of Present Illness 87 yo F who is admittted for evaluation of fever and found to have urosepsis. She has PMH DM type 2, schizophrenia, recurrent UTI, and pneumonitis. Patient was given Tyelnol prior to arrival. Patient was a poor historian and able to answer a few questions but kept calling out for her mother when asked more about her presenting complaints. Patient has a nonproductive cough and does complain of some shortness of breath. Denies any chest pain, dizziness, wheezing, or abdominal issues. Able to state name and birthday but not oriented to time or place. Patient is bedbound and receives all medications through G-tube. No abdominal pain. Eyes: no complaints ENT: no complaints Respiratory: cough, shortness of breath, No sputum, No wheezing Cardiovascular: No chest pain, No lightheadedness, No palpitations Gastrointestinal: No constipation, No diarrhea, No nausea, No vomiting Genitourinary: no complaints Musculoskeletal: no complaints Skin: no complaints Neurologic: confusion Lymphatic: no complaints Psychological: confusion Immunologic: no complaints Past Medical History Medical History: diabetes, urinary tract infection, other (schizophrenia) Past Surgical History Past Surgical Hx: other (unable to obtain) Family History Significant Family History: heart disease, hypertension Social History Alcohol Use: none Smoking Status: Never smoker Drug Use: none Exam/Review of Systems Vital Signs Vitals Vital Signs Date Time Temp Pulse Resp B/P Pulse Ox O2 Delivery O2 Flow Rate FiO2 09/28/17 08:20 97.6 78 18 178/77 99 09/28/17 06:00 Room Air 09/27/17 19:55 21 09/24/17 17:20 1.0 Intake and Output 09/27/17 09/27/17 09/28/17 15:00 23:00 07:00 Intake Total 200 ml 1080 ml 1050 ml Output Total 500 ml 1700 ml Balance 200 ml 580 ml -650 ml Exam Constitutional: other (confused) Psych: confusion, nl mood/affect, no complaints Head: atraumatic, normocephalic Eyes: EOMI, nl conjunctiva, nl lids ENMT: nl external ears & nose, nl lips & teeth, nl nasal mucosa & septum Neck: non-tender, supple Respiratory: clear to auscultation, normal air movement Cardiovascular: nl pulses, regular rate and rhythm Gastrointestinal: bowel sounds, non-tender, soft Neurological: confused Results Result Diagram: 09/28/17 0551 09/28/17 0552 Results 24 hrs Laboratory Tests Test 09/27/17 12:21 09/27/17 17:41 09/27/17 21:27 09/28/17 05:51 Bedside Glucose 165 132 101 White Blood Count 7.3 Red Blood Count 3.69 L Hemoglobin 10.9 L Hematocrit 34.0 L Mean Corpuscular Volume 92.1 Mean Corpuscular Hemoglobin 29.5 Mean Corpuscular Hemoglobin Concent 32.1 Red Cell Distribution Width 13.5 Platelet Count 290 Mean Platelet Volume 10.0 Neutrophils % 63.7 Lymphocytes % 22.5 Monocytes % 10.1 Eosinophils % 2.3 Basophils % 0.7 Nucleated Red Blood Cells % 0.0 Neutrophils # 4.7 Lymphocytes # 1.7 Monocytes # 0.7 Eosinophils # 0.2 Basophils # 0.1 Nucleated Red Blood Cells # 0.0 Test 09/28/17 05:52 09/28/17 08:18 Sodium Level 145 H Potassium Level 4.0 Chloride Level 112 H Carbon Dioxide Level 25 Anion Gap 12 Blood Urea Nitrogen 9 Creatinine 0.47 Glucose Level 123 Calcium Level 8.6 Phosphorus Level 3.4 Magnesium Level 1.8 Bedside Glucose 120 Medications Medications Current Medications Ondansetron HCl (Zofran Inj) 4 mg Q6H PRN IV NAUSEA AND/OR VOMITING; Start 09/23/17 at 13:30 Acetaminophen (Tylenol Tab) 650 mg Q6H PRN GTB PAIN LEVEL 1-3 OR FEVER Last administered on 09/28/17 03:44; Admin Dose 650 MG; Start 09/23/17 at 13:30 Magnesium Hydroxide (Milk Of Mag) 30 ml DAILY PRN PO CONSTIPATION; Start at 13:30 Bisacodyl (Dulcolax) 5 mg DAILY PRN PO CONSTIPATION; Start 09/23/17 at 13:30 Enoxaparin Sodium (Lovenox) 40 mg DAILY SC Last administered on 09/28/17 10: 25; Admin Dose 40 MG; Start 09/24/17 at 09:00 Diagnostic Test (Pha) (Accu-Chek) 1 ea 02 XX ; Start 09/24/17 at 02:00 Miscellaneous Information 1 ea NOTE XX ; Start 09/23/17 at 17:30 Glucose (Glutose) 15 gm Q15M PRN PO DECREASED GLUCOSE; Start 09/23/17 at 17:30 Glucose (Glutose) 22.5 gm Q15M PRN PO DECREASED GLUCOSE; Start 09/23/17 at 17: 30 Dextrose (D50w Syringe) 25 ml Q15M PRN IV DECREASED GLUCOSE; Start 09/23/17 at 17:30 Dextrose (D50w Syringe) 50 ml Q15M PRN IV DECREASED GLUCOSE; Start 09/23/17 at 17:30 Glucagon (Glucagen) 1 mg Q15M PRN IM DECREASED GLUCOSE; Start 09/23/17 at 17:30 Glucose (Glutose) 15 gm Q15M PRN BUCCAL DECREASED GLUCOSE; Start 09/23/17 at 17 :30 Ascorbic Acid (Vitamin C) 500 mg DAILY GTB Last administered on 09/28/17 10: 23; Admin Dose 500 MG; Start 09/24/17 at 09:00 Clonidine (Catapres) 0.2 mg BID GTB Last administered on 09/28/17 10:24; Admin Dose 0.2 MG; Start 09/23/17 at 21:00 Ferrous Sulfate (Feosol Liquid Cup) 300 mg DAILY GTB Last administered on 09/28 10:24; Admin Dose 300 MG; Start 09/24/17 at 09:00 Lisinopril (Zestril) 10 mg DAILY GTB Last administered on 09/28/17 10:23; Admin Dose 10 MG; Start 09/24/17 at 09:00 Memantine (Namenda) 5 mg DAILY NGT Last administered on 09/28/17 10:23; Admin Dose 5 MG; Start 09/24/17 at 09:00 Quetiapine Fumarate (Seroquel) 12.5 mg BID GTB Last administered on 09/28/17 10:24; Admin Dose 12.5 MG; Start 09/23/17 at 21:00 Cholecalciferol (Vitamin D) 2,000 unit DAILY GTB Last administered on 10:23; Admin Dose 2,000 UNIT; Start 09/24/17 at 09:00 Guaifenesin/ Dextromethorphan (Robitussin Dm Liquid Cup) 5 ml Q4H PRN PO cough Last administered on 09/28/17 03:44; Admin Dose 5 ML; Start 09/23/17 at 18:00 Hydralazine HCl 10 mg 10 mg Q6 PRN IV SBP >160 Last administered on 09/26/17 20:30; Admin Dose 10 MG; Start 09/23/17 at 18:00 Cefepime HCl (Maxipime 1gm/50 ml (Pmx)) 50 ml @ 100 mls/hr Q12 IVPB Last administered on 09/28/17 10:22; Admin Dose 100 MLS/HR; Start 09/24/17 at 12:00 Amlodipine Besylate 10 mg 10 mg DAILY GTB Last administered on 09/28/17 10:23 ; Admin Dose 10 MG; Start 09/26/17 at 09:00 Sodium Chloride 1,000 ml @ 70 mls/hr [id number] IV Last administered on 10:30; Admin Dose 70 MLS/HR; Start 09/25/17 at 11:00 Vancomycin HCl/ Dextrose/Water (Vancocin/D5W) 150 ml @ 75 mls/hr Q12H IVPB Last administered on 09/28/17 01:03; Admin Dose 75 MLS/HR; Start 09/28/17 at 01:00 Miscellaneous Information (*Rx Drug Level Order Reminder*) 1 ONCE ONCE XX ; Start 09/28/17 at 12:00; Stop 09/28/17 at 12:01 CYNTHIA STEPHENSON MD Sep 28, 2017 11:11
--- NOTE | 2017-09-28 11:39 | PN ---
Date/Time of Note Date/Time of Note DATE: 09/28/17 TIME: 11:33 Assessment/Plan VTE Prophylaxis VTE Prophylaxis Intervention: LMWH, SCD's Lines/Catheters IV Catheter Type (from Nrsg): Mid Line Urinary Cath still in place: Yes Reason Cath still needed: terminal illness/intractable pain Assessment/Plan Chief Complaint/Hosp Course #. AMS secondary to UTI/bacteremia - patient currently afebrile after being given Tylenol in EMS and white count normal - UA+ for infection. 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 -will hold off on further neuro intervention for now given patient's return to baseline, to follow up with outpatient neurologist. #. anemia -stable, likely chronic -GI consulted, recs fecal occult -IV iron per GI #. schizophrenia - Continue on Seroquel #. DM - a1c noted - ISS and accuchecks #. Dementia - Continue on Memantine #. HTN - continue home medications via GTB - adjust as needed #. Cough - Per family, experiencing cough for 4 days prior to admission - CXR negative for acute cardiopulmonary disease - Guaifenesin as needed - Neb treatments -? if patient is having a lot of secretions vs URI - congestion on R side, CT noted, no clear cause #. DVT ppx - lovenox #. GI ppx - Pepcid #. Diet - Pureed but needs to be fed - has peg tube, but patient's family states she is taking pureed -speech therapy caren saw patient, stated if patient shows signs of aspiration, make NPO, restart tube feeds if necessary -nursing is feeding the patient -diabetic diet #. Code status - Full code #. Disposition -ceftriaxone/vanc to 10/07 for 2 weeks total abx - baseline mentation - GI workup pending, DC when able with IV abx to SNF Problems: Subjective 24 Hr Interval Summary Free Text/Dictation no acute overnight events Exam/Review of Systems Vital Signs Vitals Vital Signs Date Time Temp Pulse Resp B/P Pulse Ox O2 Delivery O2 Flow Rate FiO2 09/28/17 08:20 97.6 78 18 178/77 99 09/28/17 06:00 Room Air 09/27/17 19:55 21 09/24/17 17:20 1.0 Intake and Output 09/27/17 09/27/17 09/28/17 15:00 23:00 07:00 Intake Total 200 ml 1080 ml 1050 ml Output Total 500 ml 1700 ml Balance 200 ml 580 ml -650 ml Exam Physical exam General: Patient is laying in bed , arousable Mentation: Patient is alert and oriented to self/family periodically, not to situation Head: Normocephalic atraumatic Eyes: EOMI, pupils reactive to light Neck: Supple, nontender, midline Respiratory: congestion heard on R side, clear left. Cardiovascular: regular rate, no obvious murmurs Gastrointestinal: non-tender to palpation, bowel sounds heard. Neurological: Moves all extremities spontaneously Results Result Diagram: 09/28/17 0551 09/28/17 0552 Results 24 hrs Laboratory Tests Test 09/27/17 12:21 09/27/17 17:41 09/27/17 21:27 09/28/17 05:51 Bedside Glucose 165 132 101 White Blood Count 7.3 Red Blood Count 3.69 L Hemoglobin 10.9 L Hematocrit 34.0 L Mean Corpuscular Volume 92.1 Mean Corpuscular Hemoglobin 29.5 Mean Corpuscular Hemoglobin Concent 32.1 Red Cell Distribution Width 13.5 Platelet Count 290 Mean Platelet Volume 10.0 Neutrophils % 63.7 Lymphocytes % 22.5 Monocytes % 10.1 Eosinophils % 2.3 Basophils % 0.7 Nucleated Red Blood Cells % 0.0 Neutrophils # 4.7 Lymphocytes # 1.7 Monocytes # 0.7 Eosinophils # 0.2 Basophils # 0.1 Nucleated Red Blood Cells # 0.0 Test 09/28/17 05:52 09/28/17 08:18 Sodium Level 145 H Potassium Level 4.0 Chloride Level 112 H Carbon Dioxide Level 25 Anion Gap 12 Blood Urea Nitrogen 9 Creatinine 0.47 Glucose Level 123 Calcium Level 8.6 Phosphorus Level 3.4 Magnesium Level 1.8 Bedside Glucose 120 Medications Medications Current Medications Ondansetron HCl (Zofran Inj) 4 mg Q6H PRN IV NAUSEA AND/OR VOMITING; Start 09/23/17 at 13:30 Acetaminophen (Tylenol Tab) 650 mg Q6H PRN GTB PAIN LEVEL 1-3 OR FEVER Last administered on 09/28/17 03:44; Admin Dose 650 MG; Start 09/23/17 at 13:30 Magnesium Hydroxide (Milk Of Mag) 30 ml DAILY PRN PO CONSTIPATION; Start at 13:30 Bisacodyl (Dulcolax) 5 mg DAILY PRN PO CONSTIPATION; Start 09/23/17 at 13:30 Enoxaparin Sodium (Lovenox) 40 mg DAILY SC Last administered on 09/28/17 10: 25; Admin Dose 40 MG; Start 09/24/17 at 09:00 Diagnostic Test (Pha) (Accu-Chek) 1 ea 02 XX ; Start 09/24/17 at 02:00 Miscellaneous Information 1 ea NOTE XX ; Start 09/23/17 at 17:30 Glucose (Glutose) 15 gm Q15M PRN PO DECREASED GLUCOSE; Start 09/23/17 at 17:30 Glucose (Glutose) 22.5 gm Q15M PRN PO DECREASED GLUCOSE; Start 09/23/17 at 17: 30 Dextrose (D50w Syringe) 25 ml Q15M PRN IV DECREASED GLUCOSE; Start 09/23/17 at 17:30 Dextrose (D50w Syringe) 50 ml Q15M PRN IV DECREASED GLUCOSE; Start 09/23/17 at 17:30 Glucagon (Glucagen) 1 mg Q15M PRN IM DECREASED GLUCOSE; Start 09/23/17 at 17:30 Glucose (Glutose) 15 gm Q15M PRN BUCCAL DECREASED GLUCOSE; Start 09/23/17 at 17 :30 Clonidine (Catapres) 0.2 mg BID GTB Last administered on 09/28/17 10:24; Admin Dose 0.2 MG; Start 09/23/17 at 21:00 Lisinopril (Zestril) 10 mg DAILY GTB Last administered on 09/28/17 10:23; Admin Dose 10 MG; Start 09/24/17 at 09:00 Memantine (Namenda) 5 mg DAILY NGT Last administered on 09/28/17 10:23; Admin Dose 5 MG; Start 09/24/17 at 09:00 Quetiapine Fumarate (Seroquel) 12.5 mg BID GTB Last administered on 09/28/17 10:24; Admin Dose 12.5 MG; Start 09/23/17 at 21:00 Cholecalciferol (Vitamin D) 2,000 unit DAILY GTB Last administered on 10:23; Admin Dose 2,000 UNIT; Start 09/24/17 at 09:00 Guaifenesin/ Dextromethorphan (Robitussin Dm Liquid Cup) 5 ml Q4H PRN PO cough Last administered on 09/28/17 03:44; Admin Dose 5 ML; Start 09/23/17 at 18:00 Hydralazine HCl 10 mg 10 mg Q6 PRN IV SBP >160 Last administered on 09/26/17 20:30; Admin Dose 10 MG; Start 09/23/17 at 18:00 Cefepime HCl (Maxipime 1gm/50 ml (Pmx)) 50 ml @ 100 mls/hr Q12 IVPB Last administered on 09/28/17 10:22; Admin Dose 100 MLS/HR; Start 09/24/17 at 12:00 Amlodipine Besylate 10 mg 10 mg DAILY GTB Last administered on 09/28/17 10:23 ; Admin Dose 10 MG; Start 09/26/17 at 09:00 Sodium Chloride 1,000 ml @ 70 mls/hr [id number] IV Last administered on 10:30; Admin Dose 70 MLS/HR; Start 09/25/17 at 11:00 Vancomycin HCl/ Dextrose/Water (Vancocin/D5W) 150 ml @ 75 mls/hr Q12H IVPB Last administered on 09/28/17 01:03; Admin Dose 75 MLS/HR; Start 09/28/17 at 01:00 Miscellaneous Information 1 ONCE ONCE XX ; Start 09/28/17 at 12:00; Stop 09/04 at 12:01 Ferric Sodium Gluconate Complex/ Sodium Chloride (Ferrlecit/NS) 110 ml @ 110 mls/hr Q24H IVPB ; Start 09/28/17 at 12:00; Stop 10/02/17 at 12:59 CYNTHIA LASSITER Sep 28, 2017 11:39
--- NOTE | 2017-09-28 12:56 | CONS ---
Date/Time of Note Date/Time of Note DATE: 09/28/17 TIME: 12:56 Assessment/Plan Assessment/Plan Chief Complaint/Hosp Course SUBJECTIVE: No events overnight. Alert, confused, looks comfortable, no fevers MICROBIOLOGY: Blood cultures since admission growing Proteus mirabilis and Enterococcus species. Urine culture grew Proteus mirabilis. Repeat blood cultures negative. DIAGNOSTICS: Chest x-ray on admission revealed normal chest x-ray. CT of the brain showed atrophy. ANTIMICROBIALS: 1. Vancomycin. 2. Cefepime. ALL: PCN PHYSICAL EXAMINATION: GENERAL: This is a fragile, chronically ill-appearing, elderly woman who is in no distress. HEENT: Head atraumatic, normocephalic. Sclerae anicteric. Buccal mucosa dry. NECK: Supple. CHEST: Rise symmetrical. Breath sounds diminished to bases. HEART: S1, S2. ABDOMEN: Soft, bowel tones present. EXTREMITIES: Without cyanosis. ASSESSMENT: 1. Urinary tract infection with bacteremia. 2. Diabetes. 3. Dementia. 4. Hypertension. 5. Dysphagia, status post percutaneous endoscopic gastrostomy in the past. PLAN: The patient remains stable. Will change Cefepime to Rocephin, continue Vanco, continue abx for 2 weeks to complete treatment for bacteremia. [facility]EEP staff Problems: Consultation Date/Type/Reason Admit Date/Time Sep 23, 2017 at 12:22 Type of Consultation: ID Exam/Review of Systems Vital Signs Vitals Vital Signs Date Time Temp Pulse Resp B/P Pulse Ox O2 Delivery O2 Flow Rate FiO2 09/28/17 08:20 97.6 78 18 178/77 99 09/28/17 06:00 Room Air 09/27/17 19:55 21 09/24/17 17:20 1.0 Intake and Output 09/27/17 09/27/17 09/28/17 14:59 22:59 06:59 Intake Total 50 ml 1230 ml 1050 ml Output Total 500 ml 1700 ml Balance 50 ml 730 ml -650 ml Results Result Diagram: 09/28/17 0551 09/28/17 0552 Results 24 hrs Laboratory Tests Test 09/27/17 17:41 09/27/17 21:27 09/28/17 05:51 09/28/17 05:52 Bedside Glucose 132 101 White Blood Count 7.3 Red Blood Count 3.69 L Hemoglobin 10.9 L Hematocrit 34.0 L Mean Corpuscular Volume 92.1 Mean Corpuscular Hemoglobin 29.5 Mean Corpuscular Hemoglobin Concent 32.1 Red Cell Distribution Width 13.5 Platelet Count 290 Mean Platelet Volume 10.0 Neutrophils % 63.7 Lymphocytes % 22.5 Monocytes % 10.1 Eosinophils % 2.3 Basophils % 0.7 Nucleated Red Blood Cells % 0.0 Neutrophils # 4.7 Lymphocytes # 1.7 Monocytes # 0.7 Eosinophils # 0.2 Basophils # 0.1 Nucleated Red Blood Cells # 0.0 Sodium Level 145 H Potassium Level 4.0 Chloride Level 112 H Carbon Dioxide Level 25 Anion Gap 12 Blood Urea Nitrogen 9 Creatinine 0.47 Glucose Level 123 Calcium Level 8.6 Phosphorus Level 3.4 Magnesium Level 1.8 Test 09/28/17 08:18 09/28/17 12:27 Bedside Glucose 120 128 Medications Medications Current Medications Ondansetron HCl (Zofran Inj) 4 mg Q6H PRN IV NAUSEA AND/OR VOMITING; Start 09/23/17 at 13:30 Acetaminophen (Tylenol Tab) 650 mg Q6H PRN GTB PAIN LEVEL 1-3 OR FEVER Last administered on 09/28/17 03:44; Admin Dose 650 MG; Start 09/23/17 at 13:30 Magnesium Hydroxide (Milk Of Mag) 30 ml DAILY PRN PO CONSTIPATION; Start at 13:30 Bisacodyl (Dulcolax) 5 mg DAILY PRN PO CONSTIPATION; Start 09/23/17 at 13:30 Enoxaparin Sodium (Lovenox) 40 mg DAILY SC Last administered on 09/28/17 10: 25; Admin Dose 40 MG; Start 09/24/17 at 09:00 Diagnostic Test (Pha) (Accu-Chek) 1 ea 02 XX ; Start 09/24/17 at 02:00 Miscellaneous Information 1 ea NOTE XX ; Start 09/23/17 at 17:30 Glucose (Glutose) 15 gm Q15M PRN PO DECREASED GLUCOSE; Start 09/23/17 at 17:30 Glucose (Glutose) 22.5 gm Q15M PRN PO DECREASED GLUCOSE; Start 09/23/17 at 17: 30 Dextrose (D50w Syringe) 25 ml Q15M PRN IV DECREASED GLUCOSE; Start 09/23/17 at 17:30 Dextrose (D50w Syringe) 50 ml Q15M PRN IV DECREASED GLUCOSE; Start 09/23/17 at 17:30 Glucagon (Glucagen) 1 mg Q15M PRN IM DECREASED GLUCOSE; Start 09/23/17 at 17:30 Glucose (Glutose) 15 gm Q15M PRN BUCCAL DECREASED GLUCOSE; Start 09/23/17 at 17 :30 Clonidine (Catapres) 0.2 mg BID GTB Last administered on 09/28/17 10:24; Admin Dose 0.2 MG; Start 09/23/17 at 21:00 Lisinopril (Zestril) 10 mg DAILY GTB Last administered on 09/28/17 10:23; Admin Dose 10 MG; Start 09/24/17 at 09:00 Memantine (Namenda) 5 mg DAILY NGT Last administered on 09/28/17 10:23; Admin Dose 5 MG; Start 09/24/17 at 09:00 Quetiapine Fumarate (Seroquel) 12.5 mg BID GTB Last administered on 09/28/17 10:24; Admin Dose 12.5 MG; Start 09/23/17 at 21:00 Cholecalciferol (Vitamin D) 2,000 unit DAILY GTB Last administered on 10:23; Admin Dose 2,000 UNIT; Start 09/24/17 at 09:00 Guaifenesin/ Dextromethorphan (Robitussin Dm Liquid Cup) 5 ml Q4H PRN PO cough Last administered on 09/28/17 03:44; Admin Dose 5 ML; Start 09/23/17 at 18:00 Hydralazine HCl 10 mg 10 mg Q6 PRN IV SBP >160 Last administered on 09/26/17 20:30; Admin Dose 10 MG; Start 09/23/17 at 18:00 Cefepime HCl (Maxipime 1gm/50 ml (Pmx)) 50 ml @ 100 mls/hr Q12 IVPB Last administered on 09/28/17 10:22; Admin Dose 100 MLS/HR; Start 09/24/17 at 12:00 Amlodipine Besylate 10 mg 10 mg DAILY GTB Last administered on 09/28/17 10:23 ; Admin Dose 10 MG; Start 09/26/17 at 09:00 Sodium Chloride 1,000 ml @ 70 mls/hr [id number] IV Last administered on 10:30; Admin Dose 70 MLS/HR; Start 09/25/17 at 11:00 Vancomycin HCl 750 mg/Dextrose/ Water 150 ml @ 75 mls/hr Q12H IVPB Last administered on 09/28/17 01:03; Admin Dose 75 MLS/HR; Start 09/28/17 at 01:00 Ferric Sodium Gluconate Complex/ Sodium Chloride (Ferrlecit/NS) 110 ml @ 110 mls/hr Q24H IVPB ; Start 09/28/17 at 12:00; Stop 10/02/17 at 12:59 BOUCHRA MACIAS NP Sep 28, 2017 12:56
[2017-09-28] MEDS: CEFTRIAXONE 1 GM/50 ML (PMX) 50 ML IVPB SCH ×2 (13:00→16:50)
[2017-09-28] MEDS: SOD FERRIC GLUC COMPLX 125 MG in SOD CHLORIDE 0.9% 100 ML IVPB SCH (13:22)
[2017-09-29] VITALS (14 sets, daily range): BP systolic 92–193; BP diastolic 44–101; PULSE 76–83; RESP 16–20
[2017-09-29] MEDS: SOD CHLORIDE 0.45% 1,000 ML IV SCH ×3 (00:48→15:06)
[2017-09-29] MEDS: VANCOMYCIN 750 MG in DEXTROSE 5% 150 ML IVPB SCH ×2 (01:31→13:31)
[2017-09-29] MEDS: ACCU-CHEK XX SCH (02:00)
[2017-09-29] MEDS: hydrALAzine 20 MG INJ IV PRN (04:18)
[2017-09-29] MEDS: ACETAMINOPHEN 325 MG TAB GTB PRN ×2 (04:19→21:13)
[2017-09-29 06:21] LABS: BASOPHIL # 0.1 10^3/ul (0.0-0.1); BASOPHILS % 0.6 % (0.0-2.0); EOSINOPHILS # 0.2 10^3/ul (0.0-0.5); EOSINOPHILS % 1.7 % (0.0-7.0); HEMATOCRIT 35.9 % (37.0-47.0); HEMOGLOBIN 11.6 g/dl (12.0-16.0); LYMPHOCYTES % 21.3 % (15.0-51.0); MEAN CORPUSCULAR HEMOGLOBIN 29.7 pg (29.0-33.0); MEAN CORPUSCULAR HGB CONC 32.3 g/dl (32.0-37.0); MEAN CORPUSCULAR VOLUME 92.1 fl (82.0-101.0); MEAN PLATELET VOLUME 10.5 fl (7.4-10.4); MONOCYTE # 0.8 10^3/ul (0.3-0.9); MONOCYTES % 8.4 % (0.0-11.0); NEUTROPHIL # 6.2 10^3/ul (1.6-7.5); NEUTROPHILS % 67.6 % (39.0-77.0); PLATELET COUNT 321 10^3/UL (140-415); RED CELL DISTRIBUTION WIDTH 13.5 % (11.5-14.5); WHITE BLOOD COUNT 9.3 10^3/ul (4.8-10.8)
[2017-09-29 06:42] LABS: CALCIUM 8.7 mg/dl (8.4-10.2); CREATININE 0.46 mg/dl (0.44-1.00); MAGNESIUM 1.7 mg/dl (1.7-2.5); PHOSPHORUS 3.5 mg/dl (2.5-4.9); POTASSIUM 3.7 mmol/L (3.5-5.1)
[2017-09-29] MEDS: INSULIN ASPART [NOVOLOG] 3 ML PEN SC SCH ×4 (08:15→21:00)
[2017-09-29] MEDS: MEMANTINE 5 MG TAB NGT SCH (08:41)
[2017-09-29] MEDS: LISINOPRIL 10 MG TAB GTB SCH (08:42)
[2017-09-29] MEDS: CHOLECALCIFEROL 2,000 UNIT CAP GTB SCH (08:42)
[2017-09-29] MEDS: AMLODIPINE 10 MG TAB GTB SCH (08:42)
[2017-09-29] MEDS: QUETIAPINE 25 MG TAB GTB SCH ×2 (08:42→21:13)
[2017-09-29] MEDS: ENOXAPARIN 40 MG/0.4 ML SYG SC SCH (08:58)
[2017-09-29] MEDS: ALBUTEROL 0.083% (NEB) 2.5 MG/3 ML AMP HHN SCH ×3 (09:28→19:42)
--- NOTE | 2017-09-29 10:46 | PN ---
Date/Time of Note Date/Time of Note DATE: 09/29/17 TIME: 10:46 Assessment/Plan VTE Prophylaxis VTE Prophylaxis Intervention: LMWH Lines/Catheters IV Catheter Type (from Nrs): Mid Line Urinary Cath still in place: Yes Reason Cath still needed: skin wounds contaminated by urine Assessment/Plan Assessment/Plan 1. AMS secondary to UTI/bacteremia - Patient has baseline dementia/schizophrenia - Remains afebrile with nl WBC - UA+ for infection. urine cultures noted - ceftriaxone/vanc - Lactic acid normal - IVF as needed 2. bacteremia - gram neg clementina - ID suggests ceftriaxone/vanc for 2 weeks total. appreciate consultation 3. dilated bile duct -physiologic per GI 4. 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 - will hold off on further neuro intervention for now given patient's return to baseline, to follow up with outpatient neurologist. 5. anemia -stable, likely chronic -GI consulted and appreciate recommendations -IV iron per GI - Awaiting FOBT 6. schizophrenia - Continue on Seroquel 7. DM - a1c noted - ISS and accuchecks 8. Dementia - Continue on Memantine 9. HTN - continue home medications via GTB - adjust as needed 10. Cough - CXR negative for acute cardiopulmonary disease - Guaifenesin as needed - Neb treatments - congestion on R side, CT noted, no clear cause 11. Disposition - awaiting FOBT - will need to continue IV antibiotics until 10/07 Subjective 24 Hr Interval Summary Free Text/Dictation Patient resting comfortably in no acute distress. Per Nursing, no acute overnight events. Tolerating PO diet when fed. did not have BM so FOBT not collected yet. Exam/Review of Systems Vital Signs Vitals Vital Signs Date Time Temp Pulse Resp B/P Pulse Ox O2 Delivery O2 Flow Rate FiO2 09/29/17 09:28 76 20 97 21 09/29/17 08:18 97.5 146/70 09/28/17 06:00 Room Air Intake and Output 09/28/17 09/28/17 09/29/17 15:00 23:00 07:00 Intake Total 160 ml 300 ml 870 ml Output Total 1100 ml 1000 ml Balance 160 ml -800 ml -130 ml Exam General: Patient is laying in bed , arousable Mentation: Patient is alert and oriented to self/family periodically, not to situation Head: Normocephalic atraumatic Eyes: EOMI, pupils reactive to light Neck: Supple, nontender, midline Respiratory: congestion heard on R side, clear left. Cardiovascular: regular rate, systolic murmur Gastrointestinal: non-tender to palpation, bowel sounds heard. Neurological: Moves all extremities spontaneously Results Result Diagram: 09/29/17 0541 09/29/17 0541 Results 24 hrs Laboratory Tests Test 09/28/17 12:16 09/28/17 12:27 09/28/17 17:34 09/28/17 21:13 Vancomycin Level Trough 13.7 Bedside Glucose 128 129 108 Test 09/29/17 02:19 09/29/17 05:41 09/29/17 08:39 Bedside Glucose 142 99 White Blood Count 9.3 # Red Blood Count 3.90 L Hemoglobin 11.6 L Hematocrit 35.9 L Mean Corpuscular Volume 92.1 Mean Corpuscular Hemoglobin 29.7 Mean Corpuscular Hemoglobin Concent 32.3 Red Cell Distribution Width 13.5 Platelet Count 321 Mean Platelet Volume 10.5 H Neutrophils % 67.6 Lymphocytes % 21.3 Monocytes % 8.4 Eosinophils % 1.7 Basophils % 0.6 Nucleated Red Blood Cells % 0.0 Neutrophils # 6.2 Lymphocytes # 2.0 Monocytes # 0.8 Eosinophils # 0.2 Basophils # 0.1 Nucleated Red Blood Cells # 0.0 Sodium Level 143 Potassium Level 3.7 Chloride Level 109 Carbon Dioxide Level 25 Anion Gap 13 Blood Urea Nitrogen 9 Creatinine 0.46 Glucose Level 112 Calcium Level 8.7 Phosphorus Level 3.5 Magnesium Level 1.7 Gamma Glutamyl Transpeptidase 23 Medications Medications Current Medications Ondansetron HCl (Zofran Inj) 4 mg Q6H PRN IV NAUSEA AND/OR VOMITING; Start 09/23/17 at 13:30 Acetaminophen (Tylenol Tab) 650 mg Q6H PRN GTB PAIN LEVEL 1-3 OR FEVER Last administered on 09/29/17t 04:19; Admin Dose 650 MG; Start 09/23/17 at 13:30 Magnesium Hydroxide (Milk Of Mag) 30 ml DAILY PRN PO CONSTIPATION; Start at 13:30 Bisacodyl (Dulcolax) 5 mg DAILY PRN PO CONSTIPATION; Start 09/23/17 at 13:30 Enoxaparin Sodium (Lovenox) 40 mg DAILY SC Last administered on 09/29/17 08: 58; Admin Dose 40 MG; Start 09/24/17 at 09:00 Diagnostic Test (Pha) (Accu-Chek) 1 ea 02 XX ; Start 09/24/17 at 02:00 Miscellaneous Information 1 ea NOTE XX ; Start 09/23/17 at 17:30 Glucose (Glutose) 15 gm Q15M PRN PO DECREASED GLUCOSE; Start 09/23/17 at 17:30 Glucose (Glutose) 22.5 gm Q15M PRN PO DECREASED GLUCOSE; Start 09/23/17 at 17: 30 Dextrose (D50w Syringe) 25 ml Q15M PRN IV DECREASED GLUCOSE; Start 09/23/17 at 17:30 Dextrose (D50w Syringe) 50 ml Q15M PRN IV DECREASED GLUCOSE; Start 09/23/17 at 17:30 Glucagon (Glucagen) 1 mg Q15M PRN IM DECREASED GLUCOSE; Start 09/23/17 at 17:30 Glucose (Glutose) 15 gm Q15M PRN BUCCAL DECREASED GLUCOSE; Start 09/23/17 at 17 :30 Clonidine (Catapres) 0.2 mg BID GTB Last administered on 09/29/17 08:43; Admin Dose 0.2 MG; Start 09/23/17 at 21:00 Lisinopril (Zestril) 10 mg DAILY GTB Last administered on 09/29/17 08:42; Admin Dose 10 MG; Start 09/24/17 at 09:00 Memantine (Namenda) 5 mg DAILY NGT Last administered on 09/29/17 08:41; Admin Dose 5 MG; Start 09/24/17 at 09:00 Quetiapine Fumarate (Seroquel) 12.5 mg BID GTB Last administered on 09/29/17 08:42; Admin Dose 12.5 MG; Start 09/23/17 at 21:00 Cholecalciferol (Vitamin D) 2,000 unit DAILY GTB Last administered on 08:42; Admin Dose 2,000 UNIT; Start 09/24/17 at 09:00 Guaifenesin/ Dextromethorphan (Robitussin Dm Liquid Cup) 5 ml Q4H PRN PO cough Last administered on 09/28/17 03:44; Admin Dose 5 ML; Start 09/23/17 at 18:00 Hydralazine HCl (Apresoline) 10 mg Q6 PRN IV SBP >160 Last administered on 04:18; Admin Dose 10 MG; Start 09/23/17 at 18:00 Amlodipine Besylate 10 mg 10 mg DAILY GTB Last administered on 09/29/17 08:42 ; Admin Dose 10 MG; Start 09/26/17 at 09:00 Sodium Chloride 1,000 ml @ 70 mls/hr [id number] IV Last administered on 10:30; Admin Dose 70 MLS/HR; Start 09/25/17 at 11:00 Vancomycin HCl 750 mg/Dextrose/ Water 150 ml @ 75 mls/hr Q12H IVPB Last administered on 09/29/17 01:31; Admin Dose 75 MLS/HR; Start 09/28/17 at 01:00 Ferric Sodium Gluconate Complex 125 mg/Sodium Chloride 110 ml @ 110 mls/hr Q24H IVPB Last administered on 09/28/17 13:22; Admin Dose 110 MLS/HR; Start 09/28/17 at 12:00; Stop 10/02/17 at 12:59 Ceftriaxone Sodium (Rocephin) 50 ml @ 100 mls/hr Q24H IVPB Last administered on 09/28/17 16:50; Admin Dose 100 MLS/HR; Start 09/28/17 at 13:00 HAILEY SMITH MD Sep 29, 2017 10:46
[2017-09-29] MEDS: SOD FERRIC GLUC COMPLX 125 MG in SOD CHLORIDE 0.9% 100 ML IVPB SCH (12:20)
[2017-09-29] MEDS: CEFTRIAXONE 1 GM/50 ML (PMX) 50 ML IVPB SCH (13:31)
--- NOTE | 2017-09-29 17:22 | CONS ---
Date/Time of Note Date/Time of Note DATE: 09/29/17 TIME: 17:21 Assessment/Plan Assessment/Plan Chief Complaint/Hosp Course SUBJECTIVE: No events overnight. Alert, confused, looks comfortable, no fevers MICROBIOLOGY: Blood cultures since admission growing Proteus mirabilis and Enterococcus species. Urine culture grew Proteus mirabilis. Repeat blood cultures negative. DIAGNOSTICS: Chest x-ray on admission revealed normal chest x-ray. CT of the brain showed atrophy. ANTIMICROBIALS: 1. Vancomycin. 2. Rocephin. ALL: PCN PHYSICAL EXAMINATION: GENERAL: This is a fragile, chronically ill-appearing, elderly woman who is in no distress. HEENT: Head atraumatic, normocephalic. Sclerae anicteric. Buccal mucosa dry. NECK: Supple. CHEST: Rise symmetrical. Breath sounds diminished to bases. HEART: S1, S2. ABDOMEN: Soft, bowel tones present. EXTREMITIES: Without cyanosis. ASSESSMENT: 1. Urinary tract infection with bacteremia. 2. Diabetes. 3. Dementia. 4. Hypertension. 5. Dysphagia, status post percutaneous endoscopic gastrostomy in the past. PLAN: The patient remains stable. Repeat bld cx negative. Continue abx for total of 2 weeks to complete treatment for bacteremia. DW staff Problems: Consultation Date/Type/Reason Admit Date/Time Sep 23, 2017 at 12:22 Type of Consultation: ID Exam/Review of Systems Vital Signs Vitals Vital Signs Date Time Temp Pulse Resp B/P Pulse Ox O2 Delivery O2 Flow Rate FiO2 09/29/17 16:00 97.8 83 18 132/62 98 09/29/17 09:28 21 09/28/17 06:00 Room Air Intake and Output 09/28/17 09/28/17 09/29/17 15:00 23:00 07:00 Intake Total 160 ml 300 ml 870 ml Output Total 1100 ml 1000 ml Balance 160 ml -800 ml -130 ml Results Result Diagram: 09/29/17 0541 09/29/17 0541 Results 24 hrs Laboratory Tests Test 09/28/17 17:34 09/28/17 21:13 09/29/17 02:19 09/29/17 05:41 Bedside Glucose 129 108 142 White Blood Count 9.3 # Red Blood Count 3.90 L Hemoglobin 11.6 L Hematocrit 35.9 L Mean Corpuscular Volume 92.1 Mean Corpuscular Hemoglobin 29.7 Mean Corpuscular Hemoglobin Concent 32.3 Red Cell Distribution Width 13.5 Platelet Count 321 Mean Platelet Volume 10.5 H Neutrophils % 67.6 Lymphocytes % 21.3 Monocytes % 8.4 Eosinophils % 1.7 Basophils % 0.6 Nucleated Red Blood Cells % 0.0 Neutrophils # 6.2 Lymphocytes # 2.0 Monocytes # 0.8 Eosinophils # 0.2 Basophils # 0.1 Nucleated Red Blood Cells # 0.0 Sodium Level 143 Potassium Level 3.7 Chloride Level 109 Carbon Dioxide Level 25 Anion Gap 13 Blood Urea Nitrogen 9 Creatinine 0.46 Glucose Level 112 Calcium Level 8.7 Phosphorus Level 3.5 Magnesium Level 1.7 Gamma Glutamyl Transpeptidase 23 Test 09/29/17 08:39 09/29/17 12:18 Bedside Glucose 99 124 Medications Medications Current Medications Ondansetron HCl (Zofran Inj) 4 mg Q6H PRN IV NAUSEA AND/OR VOMITING; Start 09/23/17 at 13:30 Acetaminophen (Tylenol Tab) 650 mg Q6H PRN GTB PAIN LEVEL 1-3 OR FEVER Last administered on 09/29/17 04:19; Admin Dose 650 MG; Start 09/23/17 at 13:30 Magnesium Hydroxide (Milk Of Mag) 30 ml DAILY PRN PO CONSTIPATION; Start at 13:30 Bisacodyl (Dulcolax) 5 mg DAILY PRN PO CONSTIPATION; Start 09/23/17 at 13:30 Enoxaparin Sodium (Lovenox) 40 mg DAILY SC Last administered on 09/29/17 08: 58; Admin Dose 40 MG; Start 09/24/17 at 09:00 Diagnostic Test (Pha) (Accu-Chek) 1 ea 02 XX ; Start 09/24/17 at 02:00 Miscellaneous Information 1 ea NOTE XX ; Start 09/23/17 at 17:30 Glucose (Glutose) 15 gm Q15M PRN PO DECREASED GLUCOSE; Start 09/23/17 at 17:30 Glucose (Glutose) 22.5 gm Q15M PRN PO DECREASED GLUCOSE; Start 09/23/17 at 17: 30 Dextrose (D50w Syringe) 25 ml Q15M PRN IV DECREASED GLUCOSE; Start 09/23/17 at 17:30 Dextrose (D50w Syringe) 50 ml Q15M PRN IV DECREASED GLUCOSE; Start 09/23/17 at 17:30 Glucagon (Glucagen) 1 mg Q15M PRN IM DECREASED GLUCOSE; Start 09/23/17 at 17:30 Glucose (Glutose) 15 gm Q15M PRN BUCCAL DECREASED GLUCOSE; Start 09/23/17 at 17 :30 Clonidine (Catapres) 0.2 mg BID GTB Last administered on 09/29/17 08:43; Admin Dose 0.2 MG; Start 09/23/17 at 21:00 Lisinopril (Zestril) 10 mg DAILY GTB Last administered on 09/29/17 08:42; Admin Dose 10 MG; Start 09/24/17 at 09:00 Memantine (Namenda) 5 mg DAILY NGT Last administered on 09/29/17 08:41; Admin Dose 5 MG; Start 09/24/17 at 09:00 Quetiapine Fumarate (Seroquel) 12.5 mg BID GTB Last administered on 09/29/17 08:42; Admin Dose 12.5 MG; Start 09/23/17 at 21:00 Cholecalciferol (Vitamin D) 2,000 unit DAILY GTB Last administered on 08:42; Admin Dose 2,000 UNIT; Start 09/24/17 at 09:00 Guaifenesin/ Dextromethorphan (Robitussin Dm Liquid Cup) 5 ml Q4H PRN PO cough Last administered on 09/28/17 03:44; Admin Dose 5 ML; Start 09/23/17 at 18:00 Hydralazine HCl (Apresoline) 10 mg Q6 PRN IV SBP >160 Last administered on 04:18; Admin Dose 10 MG; Start 09/23/17 at 18:00 Amlodipine Besylate 10 mg 10 mg DAILY GTB Last administered on 09/29/17 08:42 ; Admin Dose 10 MG; Start 09/26/17 at 09:00 Sodium Chloride 1,000 ml @ 70 mls/hr [id number] IV Last administered on 11:05; Admin Dose 70 MLS/HR; Start 09/25/17 at 11:00 Vancomycin HCl 750 mg/Dextrose/ Water 150 ml @ 75 mls/hr Q12H IVPB Last administered on 09/29/17 13:31; Admin Dose 75 MLS/HR; Start 09/28/17 at 01:00 Ferric Sodium Gluconate Complex 125 mg/Sodium Chloride 110 ml @ 110 mls/hr Q24H IVPB Last administered on 09/29/17 12:20; Admin Dose 110 MLS/HR; Start 09/28/17 at 12:00; Stop 10/02/17 at 12:59 Ceftriaxone Sodium (Rocephin) 50 ml @ 100 mls/hr Q24H IVPB Last administered on 09/29/17 13:31; Admin Dose 100 MLS/HR; Start 09/28/17 at 13:00 BOUCHRA MACIAS NP Sep 29, 2017 17:22
--- NOTE | 2017-09-29 21:26 | CONS ---
Date/Time of Note Date/Time of Note DATE: 09/29/17 TIME: 21:25 Assessment/Plan Assessment/Plan Chief Complaint/Hosp Course Impression: 1. dilated CBD: CBD can be dilated with age and after cholecystectomy. Thus, since there is no abnormal LFT, the dilated CBD likely physiologic and no further w/u necessary. 2. isolated elevated alk phos without elevate bilirubin and transaminases 3. iron deficiency anemia 4. No abdominal pain, no n/v, no symptoms associated with choledocholithiasis Recommendation: 1. no need for an invasive procedure such as ERCP for reason stated in impression 2. patient still iron deficient despite oral iron replacement therapy. As such, I will change to IV iron replacement therapy 3. stool for occult blood to r/o GIB 4. check GGT for elevated alk phoos 5. continue supportive care 6. ok to dc from gi perspective if ok with primary and other consultants. Problems: Consultation Date/Type/Reason Admit Date/Time Sep 23, 2017 at 12:22 Initial Consult Date 09/28/17 Type of Consultation: GI 24 HR Interval Summary Constitutional: disoriented Exam/Review of Systems Vital Signs Vitals Vital Signs Date Time Temp Pulse Resp B/P Pulse Ox O2 Delivery O2 Flow Rate FiO2 09/29/17 20:00 98.4 94 18 144/66 97 09/29/17 19:42 21 09/29/17 18:00 Room Air Intake and Output 09/28/17 09/28/17 09/29/17 15:00 23:00 07:00 Intake Total 160 ml 300 ml 870 ml Output Total 1100 ml 1000 ml Balance 160 ml -800 ml -130 ml Exam Psych: confusion Head: atraumatic, normocephalic Eyes: EOMI, nl conjunctiva, nl lids ENMT: nl external ears & nose, nl lips & teeth, nl nasal mucosa & septum Neck: non-tender, supple Respiratory: clear to auscultation, normal air movement Cardiovascular: nl pulses, regular rate and rhythm Gastrointestinal: bowel sounds, non-tender, soft Results Result Diagram: 09/29/17 0541 09/29/17 0541 Results 24 hrs Laboratory Tests Test 09/29/17 02:19 09/29/17 05:41 09/29/17 08:39 09/29/17 12:18 Bedside Glucose 142 99 124 White Blood Count 9.3 # Red Blood Count 3.90 L Hemoglobin 11.6 L Hematocrit 35.9 L Mean Corpuscular Volume 92.1 Mean Corpuscular Hemoglobin 29.7 Mean Corpuscular Hemoglobin Concent 32.3 Red Cell Distribution Width 13.5 Platelet Count 321 Mean Platelet Volume 10.5 H Neutrophils % 67.6 Lymphocytes % 21.3 Monocytes % 8.4 Eosinophils % 1.7 Basophils % 0.6 Nucleated Red Blood Cells % 0.0 Neutrophils # 6.2 Lymphocytes # 2.0 Monocytes # 0.8 Eosinophils # 0.2 Basophils # 0.1 Nucleated Red Blood Cells # 0.0 Sodium Level 143 Potassium Level 3.7 Chloride Level 109 Carbon Dioxide Level 25 Anion Gap 13 Blood Urea Nitrogen 9 Creatinine 0.46 Glucose Level 112 Calcium Level 8.7 Phosphorus Level 3.5 Magnesium Level 1.7 Gamma Glutamyl Transpeptidase 23 Test 09/29/17 17:43 09/29/17 21:11 Bedside Glucose 136 112 Medications Medications Current Medications Ondansetron HCl (Zofran Inj) 4 mg Q6H PRN IV NAUSEA AND/OR VOMITING; Start 09/23/17 at 13:30 Acetaminophen (Tylenol Tab) 650 mg Q6H PRN GTB PAIN LEVEL 1-3 OR FEVER Last administered on 09/29/17 21:13; Admin Dose 650 MG; Start 09/23/17 at 13:30 Magnesium Hydroxide (Milk Of Mag) 30 ml DAILY PRN PO CONSTIPATION; Start at 13:30 Bisacodyl (Dulcolax) 5 mg DAILY PRN PO CONSTIPATION; Start 09/23/17 at 13:30 Enoxaparin Sodium (Lovenox) 40 mg DAILY SC Last administered on 09/29/17 08: 58; Admin Dose 40 MG; Start 09/24/17 at 09:00 Diagnostic Test (Pha) (Accu-Chek) 1 ea 02 XX ; Start 09/24/17 at 02:00 Miscellaneous Information 1 ea NOTE XX ; Start 09/23/17 at 17:30 Glucose (Glutose) 15 gm Q15M PRN PO DECREASED GLUCOSE; Start 09/23/17 at 17:30 Glucose (Glutose) 22.5 gm Q15M PRN PO DECREASED GLUCOSE; Start 09/23/17 at 17: 30 Dextrose (D50w Syringe) 25 ml Q15M PRN IV DECREASED GLUCOSE; Start 09/23/17 at 17:30 Dextrose (D50w Syringe) 50 ml Q15M PRN IV DECREASED GLUCOSE; Start 09/23/17 at 17:30 Glucagon (Glucagen) 1 mg Q15M PRN IM DECREASED GLUCOSE; Start 09/23/17 at 17:30 Glucose (Glutose) 15 gm Q15M PRN BUCCAL DECREASED GLUCOSE; Start 09/23/17 at 17 :30 Clonidine (Catapres) 0.2 mg BID GTB Last administered on 09/29/17 21:13; Admin Dose 0.2 MG; Start 09/23/17 at 21:00 Lisinopril (Zestril) 10 mg DAILY GTB Last administered on 09/29/17 08:42; Admin Dose 10 MG; Start 09/24/17 at 09:00 Memantine (Namenda) 5 mg DAILY NGT Last administered on 09/29/17 08:41; Admin Dose 5 MG; Start 09/24/17 at 09:00 Quetiapine Fumarate (Seroquel) 12.5 mg BID GTB Last administered on 09/29/17 21:13; Admin Dose 12.5 MG; Start 09/23/17 at 21:00 Cholecalciferol (Vitamin D) 2,000 unit DAILY GTB Last administered on 08:42; Admin Dose 2,000 UNIT; Start 09/24/17 at 09:00 Guaifenesin/ Dextromethorphan (Robitussin Dm Liquid Cup) 5 ml Q4H PRN PO cough Last administered on 09/28/17 03:44; Admin Dose 5 ML; Start 09/23/17 at 18:00 Hydralazine HCl (Apresoline) 10 mg Q6 PRN IV SBP >160 Last administered on 04:18; Admin Dose 10 MG; Start 09/23/17 at 18:00 Amlodipine Besylate 10 mg 10 mg DAILY GTB Last administered on 09/29/17 08:42 ; Admin Dose 10 MG; Start 09/26/17 at 09:00 Sodium Chloride 1,000 ml @ 70 mls/hr [id number] IV Last administered on 11:05; Admin Dose 70 MLS/HR; Start 11/7/17 at 11:00 Vancomycin HCl 750 mg/Dextrose/ Water 150 ml @ 75 mls/hr Q12H IVPB Last administered on 09/29/17 13:31; Admin Dose 75 MLS/HR; Start 09/28/17 at 01:00 Ferric Sodium Gluconate Complex 125 mg/Sodium Chloride 110 ml @ 110 mls/hr Q24H IVPB Last administered on 09/29/17 12:20; Admin Dose 110 MLS/HR; Start 09/28/17 at 12:00; Stop 10/02/17 at 12:59 Ceftriaxone Sodium (Rocephin) 50 ml @ 100 mls/hr Q24H IVPB Last administered on 09/29/17 13:31; Admin Dose 100 MLS/HR; Start 09/28/17 at 13:00 CYNTHIA STEPHENSON MD Sep 29, 2017 21:26
[2017-09-30] VITALS (10 sets, daily range): BP systolic 124–188; BP diastolic 57–88; PULSE 68–87; RESP 18–20
[2017-09-30] MEDS: VANCOMYCIN 750 MG in DEXTROSE 5% 150 ML IVPB SCH ×2 (01:18→13:27)
[2017-09-30] MEDS: ACCU-CHEK XX SCH (02:00)
[2017-09-30] MEDS: SOD CHLORIDE 0.45% 1,000 ML IV SCH ×2 (06:29→19:42)
[2017-09-30 06:33] LABS: ALBUMIN 3.1 g/dl (3.3-4.9); CALCIUM 8.4 mg/dl (8.4-10.2); CREATININE 0.77 mg/dl (0.44-1.00); MAGNESIUM 1.8 mg/dl (1.7-2.5); PHOSPHORUS 4.6 mg/dl (2.5-4.9); POTASSIUM 3.7 mmol/L (3.5-5.1)
[2017-09-30] MEDS: ALBUTEROL 0.083% (NEB) 2.5 MG/3 ML AMP HHN SCH ×3 (08:00→19:39)
[2017-09-30] MEDS: INSULIN ASPART [NOVOLOG] 3 ML PEN SC SCH ×4 (08:15→20:23)
[2017-09-30] MEDS: AMLODIPINE 10 MG TAB GTB SCH (09:28)
[2017-09-30] MEDS: MEMANTINE 5 MG TAB NGT SCH (09:28)
[2017-09-30] MEDS: CHOLECALCIFEROL 2,000 UNIT CAP GTB SCH (09:28)
[2017-09-30] MEDS: LISINOPRIL 10 MG TAB GTB SCH (09:28)
[2017-09-30] MEDS: QUETIAPINE 25 MG TAB GTB SCH ×2 (09:29→20:24)
[2017-09-30] MEDS: ENOXAPARIN 40 MG/0.4 ML SYG SC SCH (09:32)
--- NOTE | 2017-09-30 10:20 | CONS ---
Date/Time of Note Date/Time of Note DATE: 09/30/17 TIME: : Assessment/Plan Assessment/Plan Chief Complaint/Hosp Course Impression: 1. dilated CBD: CBD can be dilated with age and after cholecystectomy. Thus, since there is no abnormal LFT, the dilated CBD likely physiologic and no further w/u necessary. 2. isolated elevated alk phos without elevate bilirubin and transaminases. Additionally GGT normal. 3. iron deficiency anemia 4. No abdominal pain, no n/v, no symptoms associated with choledocholithiasis Recommendation: 1. no need for an invasive procedure such as ERCP for reason stated in impression 2. patient still iron deficient despite oral iron replacement therapy. As such, I will change to IV iron replacement therapy 3. f/u stool for occult blood to r/o GIB 4. hematology or primary to evaluate elevated alk phos with normal GGT. This indicate that it is not hepatobiliary source. 5. continue supportive care 6. ok to dc from gi perspective if ok with primary and other consultants. Problems: Consultation Date/Type/Reason Admit Date/Time Sep 23, 2017 at 12:22 Initial Consult Date 09/28/17 Type of Consultation: GI 24 HR Interval Summary Free Text/Dictation no n/v, appears comfortable Constitutional: disoriented Exam/Review of Systems Vital Signs Vitals Vital Signs Date Time Temp Pulse Resp B/P Pulse Ox O2 Delivery O2 Flow Rate FiO2 09/30/17 09:33 87 171/65 09/30/17 08:00 97.7 19 98 09/29/17 19:42 21 09/29/17 18:00 Room Air Intake and Output 09/29/17 09/29/17 09/30/17 14:59 22:59 06:59 Intake Total 710 ml 600 ml 1090 ml Output Total 600 ml 1200 ml Balance 710 ml 0 ml -110 ml Exam Head: atraumatic, normocephalic Eyes: EOMI, nl conjunctiva, nl lids ENMT: nl external ears & nose, nl lips & teeth, nl nasal mucosa & septum Neck: non-tender, supple Respiratory: clear to auscultation, normal air movement Cardiovascular: nl pulses, regular rate and rhythm Gastrointestinal: bowel sounds, non-tender, soft Results Result Diagram: 09/29/17 0541 09/30/17 0534 Results 24 hrs Laboratory Tests Test 09/29/17 12:18 09/29/17 17:43 09/29/17 21:11 09/30/17 05:34 Bedside Glucose 124 136 112 Sodium Level 143 Potassium Level 3.7 Chloride Level 110 Carbon Dioxide Level 24 Anion Gap 13 Blood Urea Nitrogen 13 Creatinine 0.77 Glucose Level 114 Calcium Level 8.4 Phosphorus Level 4.6 Magnesium Level 1.8 Albumin 3.1 L Test 09/30/17 08:08 Bedside Glucose 107 Medications Medications Current Medications Ondansetron HCl (Zofran Inj) 4 mg Q6H PRN IV NAUSEA AND/OR VOMITING; Start 09/23/17 at 13:30 Acetaminophen (Tylenol Tab) 650 mg Q6H PRN GTB PAIN LEVEL 1-3 OR FEVER Last administered on 09/29/17 21:13; Admin Dose 650 MG; Start 09/23/17 at 13:30 Magnesium Hydroxide (Milk Of Mag) 30 ml DAILY PRN PO CONSTIPATION; Start at 13:30 Bisacodyl (Dulcolax) 5 mg DAILY PRN PO CONSTIPATION; Start 09/23/17 at 13:30 Enoxaparin Sodium (Lovenox) 40 mg DAILY SC Last administered on 09/30/17 09: 32; Admin Dose 40 MG; Start 09/24/17 at 09:00 Diagnostic Test (Pha) (Accu-Chek) 1 ea 02 XX ; Start 09/24/17 at 02:00 Miscellaneous Information 1 ea NOTE XX ; Start 09/23/17 at 17:30 Glucose (Glutose) 15 gm Q15M PRN PO DECREASED GLUCOSE; Start 09/23/17 at 17:30 Glucose (Glutose) 22.5 gm Q15M PRN PO DECREASED GLUCOSE; Start 09/23/17 at 17: 30 Dextrose (D50w Syringe) 25 ml Q15M PRN IV DECREASED GLUCOSE; Start 09/23/17 at 17:30 Dextrose (D50w Syringe) 50 ml Q15M PRN IV DECREASED GLUCOSE; Start 09/23/17 at 17:30 Glucagon (Glucagen) 1 mg Q15M PRN IM DECREASED GLUCOSE; Start 09/23/17 at 17:30 Glucose (Glutose) 15 gm Q15M PRN BUCCAL DECREASED GLUCOSE; Start 09/23/17 at 17 :30 Clonidine (Catapres) 0.2 mg BID GTB Last administered on 09/30/17 09:28; Admin Dose 0.2 MG; Start 09/23/17 at 21:00 Lisinopril (Zestril) 10 mg DAILY GTB Last administered on 09/30/17 09:28; Admin Dose 10 MG; Start 09/24/17 at 09:00 Memantine (Namenda) 5 mg DAILY NGT Last administered on 09/30/17 09:28; Admin Dose 5 MG; Start 09/24/17 at 09:00 Quetiapine Fumarate (Seroquel) 12.5 mg BID GTB Last administered on 09/30/17 09:29; Admin Dose 12.5 MG; Start 09/23/17 at 21:00 Cholecalciferol (Vitamin D) 2,000 unit DAILY GTB Last administered on 09:28; Admin Dose 2,000 UNIT; Start 09/24/17 at 09:00 Guaifenesin/ Dextromethorphan (Robitussin Dm Liquid Cup) 5 ml Q4H PRN PO cough Last administered on 09/28/17 03:44; Admin Dose 5 ML; Start 09/23/17 at 18:00 Hydralazine HCl (Apresoline) 10 mg Q6 PRN IV SBP >160 Last administered on 04:18; Admin Dose 10 MG; Start 09/23/17 at 18:00 Amlodipine Besylate 10 mg 10 mg DAILY GTB Last administered on 09/30/17 09:28 ; Admin Dose 10 MG; Start 09/26/17 at 09:00 Sodium Chloride 1,000 ml @ 70 mls/hr [id number] IV Last administered on 06:29; Admin Dose 70 MLS/HR; Start 09/25/17 at 11:00 Vancomycin HCl 750 mg/Dextrose/ Water 150 ml @ 75 mls/hr Q12H IVPB Last administered on 09/30/17 01:18; Admin Dose 75 MLS/HR; Start 09/28/17 at 01:00 Ferric Sodium Gluconate Complex 125 mg/Sodium Chloride 110 ml @ 110 mls/hr Q24H IVPB Last administered on 09/29/17 12:20; Admin Dose 110 MLS/HR; Start 09/28/17 at 12:00; Stop 10/02/17 at 12:59 Ceftriaxone Sodium (Rocephin) 50 ml @ 100 mls/hr Q24H IVPB Last administered on 09/29/17t 13:31; Admin Dose 100 MLS/HR; Start 09/28/17 at 13:00 CYNTHIA STEPHENSON MD Sep 30, 2017 10:20
[2017-09-30] MEDS: SOD FERRIC GLUC COMPLX 125 MG in SOD CHLORIDE 0.9% 100 ML IVPB SCH (12:20)
--- NOTE | 2017-09-30 12:30 | PN ---
Date/Time of Note Date/Time of Note DATE: 09/30/17 TIME: 12:27 Assessment/Plan VTE Prophylaxis VTE Prophylaxis Intervention: LMWH Lines/Catheters IV Catheter Type (from Nrs): Mid Line Urinary Cath still in place: Yes Reason Cath still needed: skin wounds contaminated by urine Assessment/Plan Assessment/Plan 1. AMS secondary to UTI/bacteremia- improving - Patient has baseline dementia/schizophrenia - Remains afebrile with nl WBC - UA+ for infection. urine cultures noted - ceftriaxone/vanc day 07/02 - Lactic acid normal 2. Bacteremia - gram neg clementina - ID suggests ceftriaxone/vanc for 2 weeks total. appreciate consultation 3. dilated bile duct - physiologic per GI 4. 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 5. anemia -stable, likely chronic -GI consulted and appreciate recommendations -IV iron per GI - Awaiting FOBT 6. schizophrenia - Continue on Seroquel 7. DM - a1c noted - ISS and accuchecks 8. Dementia - Continue on Memantine 9. HTN - continue home medications via GTB - adjust as needed 10. Cough - CXR negative for acute cardiopulmonary disease - Guaifenesin as needed - Neb treatments - congestion on R side, CT noted, no clear cause 11. Constipation - stool softeners 12. Disposition - awaiting FOBT - will need to continue IV antibiotics until 10/07 - Plan to d/c back to SNF in am if remains stable Subjective 24 Hr Interval Summary Free Text/Dictation Patient doing well and telling stories. She denies any issues but has still not had a BM. No acute overnight events. Exam/Review of Systems Vital Signs Vitals Vital Signs Date Time Temp Pulse Resp B/P Pulse Ox O2 Delivery O2 Flow Rate FiO2 09/30/17 10:00 68 20 124/57 09/30/17 08:00 97.7 98 09/29/17 19:42 21 09/29/17 18:00 Room Air Intake and Output 09/29/17 09/29/17 09/30/17 15:00 23:00 07:00 Intake Total 710 ml 600 ml 1090 ml Output Total 600 ml 1200 ml Balance 710 ml 0 ml -110 ml Exam General: Patient is laying in bed, no acute distress Mentation: Patient is alert and oriented to self/family periodically, not to situation Head: Normocephalic atraumatic Eyes: EOMI, pupils reactive to light Neck: Supple, nontender, midline Respiratory: congestion heard on R side, clear left. Cardiovascular: regular rate, systolic murmur Gastrointestinal: non-tender to palpation, bowel sounds heard. Neurological: Moves all extremities spontaneously Results Result Diagram: 09/29/17 0541 09/30/17 0534 Results 24 hrs Laboratory Tests Test 09/29/17 17:43 09/29/17 21:11 09/30/17 05:34 09/30/17 08:08 Bedside Glucose 136 112 107 Sodium Level 143 Potassium Level 3.7 Chloride Level 110 Carbon Dioxide Level 24 Anion Gap 13 Blood Urea Nitrogen 13 Creatinine 0.77 Glucose Level 114 Calcium Level 8.4 Phosphorus Level 4.6 Magnesium Level 1.8 Albumin 3.1 L Medications Medications Current Medications Ondansetron HCl (Zofran Inj) 4 mg Q6H PRN IV NAUSEA AND/OR VOMITING; Start 09/23/17 at 13:30 Acetaminophen (Tylenol Tab) 650 mg Q6H PRN GTB PAIN LEVEL 1-3 OR FEVER Last administered on 09/29/17 21:13; Admin Dose 650 MG; Start 09/23/17 at 13:30 Magnesium Hydroxide (Milk Of Mag) 30 ml DAILY PRN PO CONSTIPATION Last administered on 09/30/17 12:24; Admin Dose 30 ML; Start 09/23/17 at 13:30 Bisacodyl (Dulcolax) 5 mg DAILY PRN PO CONSTIPATION; Start 09/23/17 at 13:30 Enoxaparin Sodium (Lovenox) 40 mg DAILY SC Last administered on 09/30/17 09: 32; Admin Dose 40 MG; Start 09/24/17 at 09:00 Diagnostic Test (Pha) (Accu-Chek) 1 ea 02 XX ; Start 09/24/17 at 02:00 Miscellaneous Information 1 ea NOTE XX ; Start 09/23/17 at 17:30 Glucose (Glutose) 15 gm Q15M PRN PO DECREASED GLUCOSE; Start 09/23/17 at 17:30 Glucose (Glutose) 22.5 gm Q15M PRN PO DECREASED GLUCOSE; Start 09/23/17 at 17: 30 Dextrose (D50w Syringe) 25 ml Q15M PRN IV DECREASED GLUCOSE; Start 09/23/17 at 17:30 Dextrose (D50w Syringe) 50 ml Q15M PRN IV DECREASED GLUCOSE; Start 09/23/17 at 17:30 Glucagon (Glucagen) 1 mg Q15M PRN IM DECREASED GLUCOSE; Start 09/23/17 at 17:30 Glucose (Glutose) 15 gm Q15M PRN BUCCAL DECREASED GLUCOSE; Start 09/23/17 at 17 :30 Clonidine (Catapres) 0.2 mg BID GTB Last administered on 09/30/17 09:28; Admin Dose 0.2 MG; Start 09/23/17 at 21:00 Lisinopril (Zestril) 10 mg DAILY GTB Last administered on 09/30/17 09:28; Admin Dose 10 MG; Start 09/24/17 at 09:00 Memantine (Namenda) 5 mg DAILY NGT Last administered on 09/30/17 09:28; Admin Dose 5 MG; Start 09/24/17 at 09:00 Quetiapine Fumarate (Seroquel) 12.5 mg BID GTB Last administered on 09/30/17 09:29; Admin Dose 12.5 MG; Start 09/23/17 at 21:00 Cholecalciferol (Vitamin D) 2,000 unit DAILY GTB Last administered on 09:28; Admin Dose 2,000 UNIT; Start 09/24/17 at 09:00 Guaifenesin/ Dextromethorphan (Robitussin Dm Liquid Cup) 5 ml Q4H PRN PO cough Last administered on 09/28/17 03:44; Admin Dose 5 ML; Start 09/23/17 at 18:00 Hydralazine HCl (Apresoline) 10 mg Q6 PRN IV SBP >160 Last administered on 04:18; Admin Dose 10 MG; Start 09/23/17 at 18:00 Amlodipine Besylate 10 mg 10 mg DAILY GTB Last administered on 09/30/17 09:28 ; Admin Dose 10 MG; Start 09/26/17 at 09:00 Sodium Chloride 1,000 ml @ 70 mls/hr [id number] IV Last administered on 06:29; Admin Dose 70 MLS/HR; Start 09/25/17 at 11:00 Vancomycin HCl 750 mg/Dextrose/ Water 150 ml @ 75 mls/hr Q12H IVPB Last administered on 09/30/17 01:18; Admin Dose 75 MLS/HR; Start 09/28/17 at 01:00 Ferric Sodium Gluconate Complex 125 mg/Sodium Chloride 110 ml @ 110 mls/hr Q24H IVPB Last administered on 09/30/17 12:20; Admin Dose 110 MLS/HR; Start 09/28/17 at 12:00; Stop 10/02/17 at 12:59 Ceftriaxone Sodium (Rocephin) 50 ml @ 100 mls/hr Q24H IVPB Last administered on 09/29/17 13:31; Admin Dose 100 MLS/HR; Start 09/28/17 at 13:00 HAILEY SMITH MD Sep 30, 2017 12:30
[2017-09-30] MEDS: CEFTRIAXONE 1 GM/50 ML (PMX) 50 ML IVPB SCH (13:27)
--- NOTE | 2017-09-30 17:16 | CONS ---
Date/Time of Note Date/Time of Note DATE: 09/30/17 TIME: 17:12 Consultation Date/Type/Reason Admit Date/Time Sep 23, 2017 at 12:22 Initial Consult Date SUBJECTIVE: 87 y/o female being treated for UTI and bacteremia. Repeat BC x2 on 09/25 were neg. No events overnight. Alert, confused, looks comfortable, no fevers VS: 134/60 P:72 R:18 SO2:98% T:98.2 LABS: none today. MICROBIOLOGY: Blood cultures since admission growing Proteus mirabilis and Enterococcus species. Urine culture grew Proteus mirabilis. Repeat blood cultures negative. DIAGNOSTICS: Chest x-ray on admission revealed normal chest x-ray. CT of the brain showed atrophy. ANTIMICROBIALS: 1. Vancomycin. 2. Rocephin. ALL: PCN PHYSICAL EXAMINATION: GENERAL: This is a fragile, chronically ill-appearing, elderly woman who is in no distress. HEENT: Head atraumatic, normocephalic. Sclerae anicteric. Buccal mucosa dry. NECK: Supple. CHEST: Rise symmetrical. Breath sounds diminished to bases. HEART: S1, S2. ABDOMEN: Soft, bowel tones present. EXTREMITIES: Without cyanosis. ASSESSMENT: 1. Urinary tract infection with bacteremia. 2. Diabetes. 3. Dementia. 4. Hypertension. 5. Dysphagia, status post percutaneous endoscopic gastrostomy in the past. PLAN: The patient remains stable. Continue abx for total of 2 weeks to complete treatment for bacteremia. Type of Consultation: ID Exam/Review of Systems Vital Signs Vitals Vital Signs Date Time Temp Pulse Resp B/P Pulse Ox O2 Delivery O2 Flow Rate FiO2 09/30/17 14:27 75 18 98 21 09/30/17 14:17 98.2 134/60 09/29/17 18:00 Room Air Intake and Output 09/29/17 09/29/17 09/30/17 15:00 23:00 07:00 Intake Total 710 ml 600 ml 1090 ml Output Total 600 ml 1200 ml Balance 710 ml 0 ml -110 ml Results Result Diagram: 09/29/17 0541 09/30/17 0534 Results 24 hrs Laboratory Tests Test 09/29/17 17:43 09/29/17 21:11 09/30/17 05:34 09/30/17 08:08 Bedside Glucose 136 112 107 Sodium Level 143 Potassium Level 3.7 Chloride Level 110 Carbon Dioxide Level 24 Anion Gap 13 Blood Urea Nitrogen 13 Creatinine 0.77 Glucose Level 114 Calcium Level 8.4 Phosphorus Level 4.6 Magnesium Level 1.8 Albumin 3.1 L Test 09/30/17 12:21 Bedside Glucose 128 Medications Medications Current Medications Ondansetron HCl (Zofran Inj) 4 mg Q6H PRN IV NAUSEA AND/OR VOMITING; Start 09/23/17 at 13:30 Acetaminophen (Tylenol Tab) 650 mg Q6H PRN GTB PAIN LEVEL 1-3 OR FEVER Last administered on 09/29/17 21:13; Admin Dose 650 MG; Start 09/23/17 at 13:30 Magnesium Hydroxide (Milk Of Mag) 30 ml DAILY PRN PO CONSTIPATION Last administered on 09/30/17 12:24; Admin Dose 30 ML; Start 09/23/17 at 13:30 Bisacodyl (Dulcolax) 5 mg DAILY PRN PO CONSTIPATION; Start 09/23/17 at 13:30 Enoxaparin Sodium (Lovenox) 40 mg DAILY SC Last administered on 09/30/17 09: 32; Admin Dose 40 MG; Start 09/24/17 at 09:00 Diagnostic Test (Pha) (Accu-Chek) 1 ea 02 XX ; Start 09/24/17 at 02:00 Miscellaneous Information 1 ea NOTE XX ; Start 09/23/17 at 17:30 Glucose (Glutose) 15 gm Q15M PRN PO DECREASED GLUCOSE; Start 09/23/17 at 17:30 Glucose (Glutose) 22.5 gm Q15M PRN PO DECREASED GLUCOSE; Start 09/23/17 at 17: 30 Dextrose (D50w Syringe) 25 ml Q15M PRN IV DECREASED GLUCOSE; Start 09/23/17 at 17:30 Dextrose (D50w Syringe) 50 ml Q15M PRN IV DECREASED GLUCOSE; Start 09/23/17 at 17:30 Glucagon (Glucagen) 1 mg Q15M PRN IM DECREASED GLUCOSE; Start 09/23/17 at 17:30 Glucose (Glutose) 15 gm Q15M PRN BUCCAL DECREASED GLUCOSE; Start 09/23/17 at 17 :30 Clonidine (Catapres) 0.2 mg BID GTB Last administered on 09/30/17 09:28; Admin Dose 0.2 MG; Start 09/23/17 at 21:00 Lisinopril (Zestril) 10 mg DAILY GTB Last administered on 09/30/17 09:28; Admin Dose 10 MG; Start 09/24/17 at 09:00 Memantine (Namenda) 5 mg DAILY NGT Last administered on 09/30/17 09:28; Admin Dose 5 MG; Start 09/24/17 at 09:00 Quetiapine Fumarate (Seroquel) 12.5 mg BID GTB Last administered on 09/30/17 09:29; Admin Dose 12.5 MG; Start 09/23/17 at 21:00 Cholecalciferol (Vitamin D) 2,000 unit DAILY GTB Last administered on 09:28; Admin Dose 2,000 UNIT; Start 09/24/17 at 09:00 Guaifenesin/ Dextromethorphan (Robitussin Dm Liquid Cup) 5 ml Q4H PRN PO cough Last administered on 09/28/17 03:44; Admin Dose 5 ML; Start 09/23/17 at 18:00 Hydralazine HCl (Apresoline) 10 mg Q6 PRN IV SBP >160 Last administered on 04:18; Admin Dose 10 MG; Start 09/23/17 at 18:00 Amlodipine Besylate 10 mg 10 mg DAILY GTB Last administered on 09/30/17 09:28 ; Admin Dose 10 MG; Start 09/26/17 at 09:00 Sodium Chloride 1,000 ml @ 70 mls/hr [id number] IV Last administered on 06:29; Admin Dose 70 MLS/HR; Start 09/25/17 at 11:00 Vancomycin HCl 750 mg/Dextrose/ Water 150 ml @ 75 mls/hr Q12H IVPB Last administered on 09/30/17 13:27; Admin Dose 75 MLS/HR; Start 09/28/17 at 01:00 Ferric Sodium Gluconate Complex 125 mg/Sodium Chloride 110 ml @ 110 mls/hr Q24H IVPB Last administered on 09/30/17 12:20; Admin Dose 110 MLS/HR; Start 09/28/17 at 12:00; Stop 10/02/17 at 12:59 Ceftriaxone Sodium (Rocephin) 50 ml @ 100 mls/hr Q24H IVPB Last administered on 09/30/17t 13:27; Admin Dose 100 MLS/HR; Start 09/28/17 at 13:00 Miscellaneous Information (*Rx Drug Level Order Reminder*) VANCO TROUGH @ 0, 000 ON ... ONCE ONCE XX ; Start 10/01/17 at 00:00; Stop 10/01/17 at 00:01 GLENN FISHER Sep 30, 2017 17:16
[2017-10-01] MEDS: VANCOMYCIN 750 MG in DEXTROSE 5% 150 ML IVPB SCH ×2 (01:00→16:13)
[2017-10-01] MEDS: ACCU-CHEK XX SCH (02:00)
[2017-10-01 02:12] VITALS: BP 134/63; RESP 18
[2017-10-01] MEDS: SOD CHLORIDE 0.45% 1,000 ML IV SCH ×3 (02:38→21:40)
[2017-10-01 06:32] LABS: ALBUMIN 3.6 g/dl (3.3-4.9); CALCIUM 8.5 mg/dl (8.4-10.2); CREATININE 0.78 mg/dl (0.44-1.00); PHOSPHORUS 3.7 mg/dl (2.5-4.9); POTASSIUM 3.8 mmol/L (3.5-5.1)
[2017-10-01] MEDS: ALBUTEROL 0.083% (NEB) 2.5 MG/3 ML AMP HHN SCH ×3 (07:15→20:07)
[2017-10-01 07:53] VITALS: BP 153/71; RESP 18
[2017-10-01] MEDS: INSULIN ASPART [NOVOLOG] 3 ML PEN SC SCH ×4 (08:15→20:32)
[2017-10-01] MEDS: CHOLECALCIFEROL 2,000 UNIT CAP GTB SCH (08:42)
[2017-10-01] MEDS: AMLODIPINE 10 MG TAB GTB SCH (08:42)
[2017-10-01] MEDS: LISINOPRIL 10 MG TAB GTB SCH (08:43)
[2017-10-01] MEDS: MEMANTINE 5 MG TAB NGT SCH (08:43)
[2017-10-01] MEDS: QUETIAPINE 25 MG TAB GTB SCH ×2 (08:43→20:25)
--- NOTE | 2017-10-01 10:08 | PN ---
Date/Time of Note Date/Time of Note DATE: 10/01/17 TIME: 10:08 Assessment/Plan VTE Prophylaxis VTE Prophylaxis Intervention: LMWH Lines/Catheters IV Catheter Type (from Nrs): Mid Line Urinary Cath still in place: Yes Reason Cath still needed: skin wounds contaminated by urine Assessment/Plan Assessment/Plan 1. AMS secondary to UTI/bacteremia- resolving - Patient has baseline dementia/schizophrenia - Remains afebrile with nl WBC - UA+ for infection. urine cultures noted - ceftriaxone/vanc until 10/07 - Lactic acid normal 2. Bacteremia - gram neg clementina - ID on board and recommendations appreciated. Will continue Ceftriaxone/vanc until 10/07/17. 3. dilated bile duct - physiologic per GI 4. 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 5. anemia - stable, likely chronic - GI consulted and appreciate recommendations - IV iron per GI - Awaiting FOBT 6. schizophrenia - Continue on Seroquel 7. DM - a1c noted - ISS and accuchecks 8. Dementia - Continue on Memantine 9. HTN - continue home medications via GTB - adjust as needed 10. Cough - CXR negative for acute cardiopulmonary disease - Guaifenesin as needed - Neb treatments 11. Constipation - stool softeners 12. Disposition - will need to continue IV antibiotics until 10/07 - Medically stable for discharge home Subjective 24 Hr Interval Summary Free Text/Dictation Patient resting comfortably and no acute distress. Awake and alert but still confused which appears to be her baseline. no acute overnight events. Exam/Review of Systems Vital Signs Vitals Vital Signs Date Time Temp Pulse Resp B/P Pulse Ox O2 Delivery O2 Flow Rate FiO2 10/01/17 07:53 98.2 102 18 153/71 96 10/01/17 07:16 21 09/29/17 18:00 Room Air Intake and Output 09/30/17 09/30/17 10/01/17 15:00 23:00 07:00 Intake Total 210 ml 850 ml 700 ml Output Total 1300 ml 700 ml Balance 210 ml -450 ml 0 ml Exam General: Patient is laying in bed, no acute distress Mentation: Patient is alert and oriented to self/family periodically Head: Normocephalic atraumatic Eyes: EOMI, pupils reactive to light Neck: Supple, nontender, midline Respiratory: diminished breath sounds Cardiovascular: regular rate, systolic murmur Gastrointestinal: non-tender to palpation, bowel sounds heard. Neurological: Moves all extremities spontaneously Results Result Diagram: 09/29/17 0541 10/01/17 0529 Results 24 hrs Laboratory Tests Test 09/30/17 12:21 09/30/17 17:45 09/30/17 20:23 10/01/17 00:34 Bedside Glucose 128 121 108 Vancomycin Level Trough 24.9 *H Test 10/01/17 05:29 10/01/17 08:08 Sodium Level 144 Potassium Level 3.8 Chloride Level 109 Carbon Dioxide Level 22 Anion Gap 17 H Blood Urea Nitrogen 12 Creatinine 0.78 Glucose Level 100 Calcium Level 8.5 Phosphorus Level 3.7 Magnesium Level 2.0 Albumin 3.6 Bedside Glucose 98 Medications Medications Current Medications Ondansetron HCl (Zofran Inj) 4 mg Q6H PRN IV NAUSEA AND/OR VOMITING; Start 09/23/17 at 13:30 Acetaminophen (Tylenol Tab) 650 mg Q6H PRN GTB PAIN LEVEL 1-3 OR FEVER Last administered on 09/29/17 21:13; Admin Dose 650 MG; Start 09/23/17 at 13:30 Magnesium Hydroxide (Milk Of Mag) 30 ml DAILY PRN PO CONSTIPATION Last administered on 09/30/17 12:24; Admin Dose 30 ML; Start 09/23/17 at 13:30 Bisacodyl (Dulcolax) 5 mg DAILY PRN PO CONSTIPATION Last administered on 20:28; Admin Dose 5 MG; Start 09/23/17 at 13:30 Enoxaparin Sodium (Lovenox) 40 mg DAILY SC Last administered on 09/30/17 09: 32; Admin Dose 40 MG; Start 09/24/17 at 09:00 Diagnostic Test (Pha) (Accu-Chek) 1 ea 02 XX ; Start 09/24/17 at 02:00 Miscellaneous Information 1 ea NOTE XX ; Start 09/23/17 at 17:30 Glucose (Glutose) 15 gm Q15M PRN PO DECREASED GLUCOSE; Start 09/23/17 at 17:30 Glucose (Glutose) 22.5 gm Q15M PRN PO DECREASED GLUCOSE; Start 09/23/17 at 17: 30 Dextrose (D50w Syringe) 25 ml Q15M PRN IV DECREASED GLUCOSE; Start 09/23/17 at 17:30 Dextrose (D50w Syringe) 50 ml Q15M PRN IV DECREASED GLUCOSE; Start 09/23/17 at 17:30 Glucagon (Glucagen) 1 mg Q15M PRN IM DECREASED GLUCOSE; Start 09/23/17 at 17:30 Glucose (Glutose) 15 gm Q15M PRN BUCCAL DECREASED GLUCOSE; Start 09/23/17 at 17 :30 Clonidine (Catapres) 0.2 mg BID GTB Last administered on 09/30/17 20:24; Admin Dose 0.2 MG; Start 09/23/17 at 21:00 Lisinopril (Zestril) 10 mg DAILY GTB Last administered on 09/30/17 09:28; Admin Dose 10 MG; Start 09/24/17 at 09:00 Memantine (Namenda) 5 mg DAILY NGT Last administered on 09/30/17 09:28; Admin Dose 5 MG; Start 09/24/17 at 09:00 Quetiapine Fumarate (Seroquel) 12.5 mg BID GTB Last administered on 09/30/17 20:24; Admin Dose 12.5 MG; Start 09/23/17 at 21:00 Cholecalciferol (Vitamin D) 2,000 unit DAILY GTB Last administered on 09:28; Admin Dose 2,000 UNIT; Start 09/24/17 at 09:00 Guaifenesin/ Dextromethorphan (Robitussin Dm Liquid Cup) 5 ml Q4H PRN PO cough Last administered on 09/28/17 03:44; Admin Dose 5 ML; Start 09/23/17 at 18:00 Hydralazine HCl (Apresoline) 10 mg Q6 PRN IV SBP >160 Last administered on 04:18; Admin Dose 10 MG; Start 09/23/17 at 18:00 Amlodipine Besylate 10 mg 10 mg DAILY GTB Last administered on 09/30/17 09:28 ; Admin Dose 10 MG; Start 09/26/17 at 09:00 Sodium Chloride 1,000 ml @ 70 mls/hr [id number] IV Last administered on 02:38; Admin Dose 70 MLS/HR; Start 09/25/17 at 11:00 Vancomycin HCl 750 mg/Dextrose/ Water 150 ml @ 75 mls/hr Q12H IVPB Last administered on 09/30/17 13:27; Admin Dose 75 MLS/HR; Start 09/28/17 at 01:00 ; Status Future Hold Ferric Sodium Gluconate Complex 125 mg/Sodium Chloride 110 ml @ 110 mls/hr Q24H IVPB Last administered on 09/30/17 12:20; Admin Dose 110 MLS/HR; Start 09/28/17 at 12:00; Stop 10/02/17 at 12:59 Ceftriaxone Sodium (Rocephin) 50 ml @ 100 mls/hr Q24H IVPB Last administered on 09/30/17 13:27; Admin Dose 100 MLS/HR; Start 09/28/17 at 13:00 HAILEY SMITH MD Oct 01, 2017 10:08
[2017-10-01] MEDS: ENOXAPARIN 40 MG/0.4 ML SYG SC SCH (10:13)
[2017-10-01] MEDS: SOD FERRIC GLUC COMPLX 125 MG in SOD CHLORIDE 0.9% 100 ML IVPB SCH (11:45)
--- NOTE | 2017-10-01 12:47 | CONS ---
Date/Time of Note Date/Time of Note DATE: 10/01/17 TIME: 12:46 Consult Date/Type/Reason Admit Date/Time Sep 23, 2017 at 12:22 Type of Consultation: ID Objective Vital Signs Date Time Temp Pulse Resp B/P Pulse Ox O2 Delivery O2 Flow Rate FiO2 10/01/17 07:53 98.2 102 18 153/71 96 10/01/17 07:16 21 09/29/17 18:00 Room Air Intake and Output 09/30/17 09/30/17 10/01/17 14:59 22:59 06:59 Intake Total 210 ml 850 ml 700 ml Output Total 1300 ml 700 ml Balance 210 ml -450 ml 0 ml Results/Medications Result Diagram: 09/29/17 0541 10/01/17 0529 Results 24 hrs Laboratory Tests Test 09/30/17 17:45 09/30/17 20:23 10/01/17 00:34 10/01/17 05:29 Bedside Glucose 121 108 Vancomycin Level Trough 24.9 *H Sodium Level 144 Potassium Level 3.8 Chloride Level 109 Carbon Dioxide Level 22 Anion Gap 17 H Blood Urea Nitrogen 12 Creatinine 0.78 Glucose Level 100 Calcium Level 8.5 Phosphorus Level 3.7 Magnesium Level 2.0 Albumin 3.6 Test 10/01/17 08:08 10/01/17 11:51 Bedside Glucose 98 141 Medications Current Medications Ondansetron HCl (Zofran Inj) 4 mg Q6H PRN IV NAUSEA AND/OR VOMITING; Start 09/23/17 at 13:30 Acetaminophen (Tylenol Tab) 650 mg Q6H PRN GTB PAIN LEVEL 1-3 OR FEVER Last administered on 09/29/17 21:13; Admin Dose 650 MG; Start 09/23/17 at 13:30 Magnesium Hydroxide (Milk Of Mag) 30 ml DAILY PRN PO CONSTIPATION Last administered on 09/30/17 12:24; Admin Dose 30 ML; Start 09/23/17 at 13:30 Bisacodyl (Dulcolax) 5 mg DAILY PRN PO CONSTIPATION Last administered on 20:28; Admin Dose 5 MG; Start 09/23/17 at 13:30 Enoxaparin Sodium (Lovenox) 40 mg DAILY SC Last administered on 10/01/17 10: 13; Admin Dose 40 MG; Start 09/24/17 at 09:00 Diagnostic Test (Pha) (Accu-Chek) 1 ea 02 XX ; Start 09/24/17 at 02:00 Miscellaneous Information 1 ea NOTE XX ; Start 09/23/17 at 17:30 Glucose (Glutose) 15 gm Q15M PRN PO DECREASED GLUCOSE; Start 09/23/17 at 17:30 Glucose (Glutose) 22.5 gm Q15M PRN PO DECREASED GLUCOSE; Start 09/23/17 at 17: 30 Dextrose (D50w Syringe) 25 ml Q15M PRN IV DECREASED GLUCOSE; Start 09/23/17 at 17:30 Dextrose (D50w Syringe) 50 ml Q15M PRN IV DECREASED GLUCOSE; Start 09/23/17 at 17:30 Glucagon (Glucagen) 1 mg Q15M PRN IM DECREASED GLUCOSE; Start 09/23/17 at 17:30 Glucose (Glutose) 15 gm Q15M PRN BUCCAL DECREASED GLUCOSE; Start 09/23/17 at 17 :30 Clonidine (Catapres) 0.2 mg BID GTB Last administered on 10/01/17 08:43; Admin Dose 0.2 MG; Start 09/23/17 at 21:00 Lisinopril (Zestril) 10 mg DAILY GTB Last administered on 10/01/17 08:43; Admin Dose 10 MG; Start 09/24/17 at 09:00 Memantine (Namenda) 5 mg DAILY NGT Last administered on 10/01/17 08:43; Admin Dose 5 MG; Start 09/24/17 at 09:00 Quetiapine Fumarate (Seroquel) 12.5 mg BID GTB Last administered on 10/01/17 08:43; Admin Dose 12.5 MG; Start 09/23/17 at 21:00 Cholecalciferol (Vitamin D) 2,000 unit DAILY GTB Last administered on 08:42; Admin Dose 2,000 UNIT; Start 09/24/17 at 09:00 Guaifenesin/ Dextromethorphan (Robitussin Dm Liquid Cup) 5 ml Q4H PRN PO cough Last administered on 09/28/17 03:44; Admin Dose 5 ML; Start 09/23/17 at 18:00 Hydralazine HCl (Apresoline) 10 mg Q6 PRN IV SBP >160 Last administered on 04:18; Admin Dose 10 MG; Start 09/23/17 at 18:00 Amlodipine Besylate 10 mg 10 mg DAILY GTB Last administered on 10/01/17 08:42 ; Admin Dose 10 MG; Start 09/26/17 at 09:00 Sodium Chloride 1,000 ml @ 70 mls/hr [id number] IV Last administered on 02:38; Admin Dose 70 MLS/HR; Start 09/25/17 at 11:00 Ferric Sodium Gluconate Complex 125 mg/Sodium Chloride 110 ml @ 110 mls/hr Q24H IVPB Last administered on 10/01/17 11:45; Admin Dose 110 MLS/HR; Start 09/28/17 at 12:00; Stop 10/02/17 at 12:59 Ceftriaxone Sodium 50 ml @ 100 mls/hr Q24H IVPB Last administered on 13:27; Admin Dose 100 MLS/HR; Start 09/28/17 at 13:00 Vancomycin HCl/ Dextrose/Water (Vancocin/D5W) 150 ml @ 75 mls/hr Q24H IVPB ; Start 10/01/17 at 16:00 Assessment/Plan Chief Complaint/Hosp Course SUBJECTIVE: No events overnight. Alert, confused, looks comfortable, no fevers MICROBIOLOGY: Blood cultures since admission growing Proteus mirabilis and Enterococcus species. Urine culture grew Proteus mirabilis. Repeat blood cultures negative. DIAGNOSTICS: Chest x-ray on admission revealed normal chest x-ray. CT of the brain showed atrophy. ANTIMICROBIALS: 1. Vancomycin. 2. Rocephin. ALL: PCN PHYSICAL EXAMINATION: GENERAL: This is a fragile, chronically ill-appearing, elderly woman who is in no distress. HEENT: Head atraumatic, normocephalic. Sclerae anicteric. Buccal mucosa dry. NECK: Supple. CHEST: Rise symmetrical. Breath sounds diminished to bases. HEART: S1, S2. ABDOMEN: Soft, bowel tones present. EXTREMITIES: Without cyanosis. ASSESSMENT: 1. Urinary tract infection with bacteremia. 2. Diabetes. 3. Dementia. 4. Hypertension. 5. Dysphagia, status post percutaneous endoscopic gastrostomy in the past. PLAN: The patient remains stable. Repeat bld cx negative. Continue abx for 5 more days to complete treatment for bacteremia. [facility] staff Problems: BOUCHRA MACIAS NP Oct 01, 2017 12:47
[2017-10-01] MEDS: CEFTRIAXONE 1 GM/50 ML (PMX) 50 ML IVPB SCH (13:16)
[2017-10-01 13:50] VITALS: BP 147/63; RESP 18
[2017-10-01 19:43] VITALS: BP 149/55; RESP 18
[2017-10-01] MEDS: ACETAMINOPHEN 325 MG TAB GTB PRN (22:26)
[2017-10-01] MEDS: GUAIFENESIN/DM 5ML CUP PO PRN (22:26)
[2017-10-02] MEDS: SOD CHLORIDE 0.45% 1,000 ML IV SCH ×2 (00:18→12:17)
[2017-10-02] MEDS: ACCU-CHEK XX SCH (02:00)
[2017-10-02 02:17] VITALS: BP 170/75; RESP 18
[2017-10-02] MEDS: hydrALAzine 20 MG INJ IV PRN (02:57)
[2017-10-02 03:49] VITALS: BP 142/73
[2017-10-02 07:07] LABS: ALBUMIN 3.4 g/dl (3.3-4.9); CALCIUM 8.6 mg/dl (8.4-10.2); CREATININE 0.84 mg/dl (0.44-1.00); MAGNESIUM 1.9 mg/dl (1.7-2.5); PHOSPHORUS 3.5 mg/dl (2.5-4.9); POTASSIUM 3.5 mmol/L (3.5-5.1)
[2017-10-02 07:24] VITALS: BP 155/70; RESP 16
[2017-10-02] MEDS: ALBUTEROL 0.083% (NEB) 2.5 MG/3 ML AMP HHN SCH ×2 (07:51→14:08)
[2017-10-02] MEDS: INSULIN ASPART [NOVOLOG] 3 ML PEN SC SCH ×3 (08:15→17:53)
[2017-10-02] MEDS: LISINOPRIL 10 MG TAB GTB SCH (08:41)
[2017-10-02] MEDS: CHOLECALCIFEROL 2,000 UNIT CAP GTB SCH (08:41)
[2017-10-02] MEDS: MEMANTINE 5 MG TAB NGT SCH (08:41)
[2017-10-02] MEDS: QUETIAPINE 25 MG TAB GTB SCH (08:42)
[2017-10-02] MEDS: AMLODIPINE 10 MG TAB GTB SCH (08:42)
[2017-10-02] MEDS: ENOXAPARIN 40 MG/0.4 ML SYG SC SCH (09:04)
--- NOTE | 2017-10-02 09:16 | PN ---
Date/Time of Note Date/Time of Note DATE: 10/02/17 TIME: 09:16 Assessment/Plan VTE Prophylaxis VTE Prophylaxis Intervention: LMWH Lines/Catheters IV Catheter Type (from Nrsg): Mid Line Central line still needed: Yes Urinary Cath still in place: Yes Reason Cath still needed: terminal illness/intractable pain Assessment/Plan Assessment/Plan 1. AMS secondary to UTI/bacteremia- resolving - Patient has baseline dementia/schizophrenia - Remains afebrile with nl WBC - UA+ for infection. urine cultures noted - ceftriaxone/vanc until 10/07 - Lactic acid normal 2. Bacteremia - gram neg clementina - ID on board and recommendations appreciated. Continue Ceftriaxone/vanc until 10/07/17. 3. Dilated bile duct - physiologic per GI 4. 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 5. anemia - stable, likely chronic - GI consulted and appreciate recommendations - IV iron per GI 6. schizophrenia - Continue on Seroquel 7. DM - a1c noted - ISS and accuchecks 8. Dementia - Continue on Memantine 9. HTN - continue home medications via GTB - adjust as needed 10. Cough - CXR negative for acute cardiopulmonary disease - Guaifenesin as needed - Neb treatments 11. Constipation - stool softeners 12. Disposition - will need to continue IV antibiotics until 10/07 - Medically stable for discharge back to SNF Subjective 24 Hr Interval Summary Free Text/Dictation patient doing well and denies any pain. States medications has been helping. No acute overnight events. Exam/Review of Systems Vital Signs Vitals Vital Signs Date Time Temp Pulse Resp B/P Pulse Ox O2 Delivery O2 Flow Rate FiO2 10/02/17 07:52 84 20 95 21 10/02/17 07:24 99.0 155/70 09/29/17 18:00 Room Air Intake and Output 10/01/17 10/01/17 10/02/17 14:59 22:59 06:59 Intake Total 350 ml 1800 ml 850 ml Output Total 600 ml 1000 ml Balance 350 ml 1200 ml -150 ml Exam General: Patient is laying in bed, no acute distress Mentation: Patient is alert and oriented to self/family periodically Head: Normocephalic atraumatic Eyes: EOMI, pupils reactive to light Neck: Supple, nontender, midline Respiratory: diminished breath sounds, no crackles or wheezes Cardiovascular: regular rate, systolic murmur Gastrointestinal: non-tender to palpation, bowel sounds heard. Neurological: Moves all extremities spontaneously Results Result Diagram: 09/29/17 0541 10/02/17 0552 Results 24 hrs Laboratory Tests Test 10/01/17 11:51 10/01/17 12:30 10/01/17 17:25 10/01/17 20:31 Bedside Glucose 141 131 129 Stool Occult Blood NEGATIVE Test 10/02/17 05:52 10/02/17 07:53 Sodium Level 143 Potassium Level 3.5 Chloride Level 110 Carbon Dioxide Level 21 Anion Gap 16 Blood Urea Nitrogen 14 Creatinine 0.84 Glucose Level 113 Calcium Level 8.6 Phosphorus Level 3.5 Magnesium Level 1.9 Albumin 3.4 Bedside Glucose 115 Medications Medications Current Medications Ondansetron HCl (Zofran Inj) 4 mg Q6H PRN IV NAUSEA AND/OR VOMITING; Start 09/23/17 at 13:30 Acetaminophen (Tylenol Tab) 650 mg Q6H PRN GTB PAIN LEVEL 1-3 OR FEVER Last administered on 10/01/17 22:26; Admin Dose 650 MG; Start 09/23/17 at 13:30 Magnesium Hydroxide (Milk Of Mag) 30 ml DAILY PRN PO CONSTIPATION Last administered on 09/30/17 12:24; Admin Dose 30 ML; Start 09/23/17 at 13:30 Bisacodyl (Dulcolax) 5 mg DAILY PRN PO CONSTIPATION Last administered on 20:28; Admin Dose 5 MG; Start 09/23/17 at 13:30 Enoxaparin Sodium (Lovenox) 40 mg DAILY SC Last administered on 10/02/17 09: 04; Admin Dose 40 MG; Start 09/24/17 at 09:00 Diagnostic Test (Pha) (Accu-Chek) 1 ea 02 XX ; Start 09/24/17 at 02:00 Miscellaneous Information 1 ea NOTE XX ; Start 09/23/17 at 17:30 Glucose (Glutose) 15 gm Q15M PRN PO DECREASED GLUCOSE; Start 09/23/17 at 17:30 Glucose (Glutose) 22.5 gm Q15M PRN PO DECREASED GLUCOSE; Start 09/23/17 at 17: 30 Dextrose (D50w Syringe) 25 ml Q15M PRN IV DECREASED GLUCOSE; Start 09/23/17 at 17:30 Dextrose (D50w Syringe) 50 ml Q15M PRN IV DECREASED GLUCOSE; Start 09/23/17 at 17:30 Glucagon (Glucagen) 1 mg Q15M PRN IM DECREASED GLUCOSE; Start 09/23/17 at 17:30 Glucose (Glutose) 15 gm Q15M PRN BUCCAL DECREASED GLUCOSE; Start 09/23/17 at 17 :30 Clonidine (Catapres) 0.2 mg BID GTB Last administered on 10/02/17 08:42; Admin Dose 0.2 MG; Start 09/23/17 at 21:00 Lisinopril (Zestril) 10 mg DAILY GTB Last administered on 10/02/17 08:41; Admin Dose 10 MG; Start 09/24/17 at 09:00 Memantine (Namenda) 5 mg DAILY NGT Last administered on 10/02/17 08:41; Admin Dose 5 MG; Start 09/24/17 at 09:00 Quetiapine Fumarate (Seroquel) 12.5 mg BID GTB Last administered on 10/02/17 08:42; Admin Dose 12.5 MG; Start 09/23/17 at 21:00 Cholecalciferol (Vitamin D) 2,000 unit DAILY GTB Last administered on 08:41; Admin Dose 2,000 UNIT; Start 09/24/17 at 09:00 Guaifenesin/ Dextromethorphan (Robitussin Dm Liquid Cup) 5 ml Q4H PRN PO cough Last administered on 10/01/17 22:26; Admin Dose 5 ML; Start 09/23/17 at 18:00 Hydralazine HCl (Apresoline) 10 mg Q6 PRN IV SBP >160 Last administered on 02:57; Admin Dose 10 MG; Start 09/23/17 at 18:00 Amlodipine Besylate 10 mg 10 mg DAILY GTB Last administered on 10/02/17 08:42 ; Admin Dose 10 MG; Start 09/26/17 at 09:00 Sodium Chloride 1,000 ml @ 70 mls/hr [id number] IV Last administered on 21:40; Admin Dose 70 MLS/HR; Start 09/25/17 at 11:00 Ferric Sodium Gluconate Complex 125 mg/Sodium Chloride 110 ml @ 110 mls/hr Q24H IVPB Last administered on 10/01/17 11:45; Admin Dose 110 MLS/HR; Start 09/28/17 at 12:00; Stop 10/02/17 at 12:59 Ceftriaxone Sodium 50 ml @ 100 mls/hr Q24H IVPB Last administered on 13:16; Admin Dose 100 MLS/HR; Start 09/28/17 at 13:00 Vancomycin HCl/ Dextrose/Water (Vancocin/D5W) 150 ml @ 75 mls/hr Q24H IVPB Last administered on 10/01/17 16:13; Admin Dose 75 MLS/HR; Start 10/01/17 at 16:00 HAILEY SMITH MD Oct 02, 2017 09:16
--- NOTE | 2017-10-02 11:54 | PN ---
Date/Time of Note Date/Time of Note DATE: 10/02/17 TIME: 11:49 Assessment/Plan VTE Prophylaxis VTE Prophylaxis Intervention: SCD's Lines/Catheters IV Catheter Type (from Nrs): Mid Line Urinary Cath still in place: Yes Reason Cath still needed: other (indicate) (monitor out-put) Assessment/Plan Chief Complaint/Hosp Course Assessment Dilated CBD: CBD can be dilated with age and after cholecystectomy. Thus, since there is no abnormal LFT, the dilated CBD likely physiologic and no further w/u necessary. Isolated elevated alk phos without elevate bilirubin and transaminases. Additionally GGT normal. Iron deficiency anemia No abdominal pain, no n/v, no symptoms associated with choledocholithiasis Plan No need for an invasive procedure such as ERCP for reason stated in impression Patient still iron deficient despite oral iron replacement therapy. As such, I will change to IV iron replacement therapy F/u stool for occult blood- negative Hematology or primary to evaluate elevated alk phos with normal GGT. This indicates that it is not hepatobiliary source. Continue supportive care Ok to dc from GI point of view if ok with primary and other consultants. Subjective: Course reviewed with nursing staff Patient interviewed and examined All labs, imaging and other results reviewed The patient stable, no further intervention warranted from GI at this time. Ok to d/c from GI point of view. Problems: Exam/Review of Systems Vital Signs Vitals Vital Signs Date Time Temp Pulse Resp B/P Pulse Ox O2 Delivery O2 Flow Rate FiO2 10/02/17 07:52 84 20 95 21 10/02/17 07:24 99.0 155/70 09/29/17 18:00 Room Air Intake and Output 10/01/17 10/01/17 10/02/17 15:00 23:00 07:00 Intake Total 350 ml 1800 ml 850 ml Output Total 600 ml 1000 ml Balance 350 ml 1200 ml -150 ml Results Result Diagram: 09/29/17 0541 10/02/17 0552 Results 24 hrs Laboratory Tests Test 10/01/17 11:51 10/01/17 12:30 10/01/17 17:25 10/01/17 20:31 Bedside Glucose 141 131 129 Stool Occult Blood NEGATIVE Test 10/02/17 05:52 10/02/17 07:53 Sodium Level 143 Potassium Level 3.5 Chloride Level 110 Carbon Dioxide Level 21 Anion Gap 16 Blood Urea Nitrogen 14 Creatinine 0.84 Glucose Level 113 Calcium Level 8.6 Phosphorus Level 3.5 Magnesium Level 1.9 Albumin 3.4 Bedside Glucose 115 Medications Medications Current Medications Ondansetron HCl (Zofran Inj) 4 mg Q6H PRN IV NAUSEA AND/OR VOMITING; Start 09/23/17 at 13:30 Acetaminophen (Tylenol Tab) 650 mg Q6H PRN GTB PAIN LEVEL 1-3 OR FEVER Last administered on 10/01/17 22:26; Admin Dose 650 MG; Start 09/23/17 at 13:30 Magnesium Hydroxide (Milk Of Mag) 30 ml DAILY PRN PO CONSTIPATION Last administered on 09/30/17 12:24; Admin Dose 30 ML; Start 09/23/17 at 13:30 Bisacodyl (Dulcolax) 5 mg DAILY PRN PO CONSTIPATION Last administered on 20:28; Admin Dose 5 MG; Start 09/23/17 at 13:30 Enoxaparin Sodium (Lovenox) 40 mg DAILY SC Last administered on 10/02/17 09: 04; Admin Dose 40 MG; Start 09/24/17 at 09:00 Diagnostic Test (Pha) (Accu-Chek) 1 ea 02 XX ; Start 09/24/17 at 02:00 Miscellaneous Information 1 ea NOTE XX ; Start 09/23/17 at 17:30 Glucose (Glutose) 15 gm Q15M PRN PO DECREASED GLUCOSE; Start 09/23/17 at 17:30 Glucose (Glutose) 22.5 gm Q15M PRN PO DECREASED GLUCOSE; Start 09/23/17 at 17: 30 Dextrose (D50w Syringe) 25 ml Q15M PRN IV DECREASED GLUCOSE; Start 09/23/17 at 17:30 Dextrose (D50w Syringe) 50 ml Q15M PRN IV DECREASED GLUCOSE; Start 09/23/17 at 17:30 Glucagon (Glucagen) 1 mg Q15M PRN IM DECREASED GLUCOSE; Start 09/23/17 at 17:30 Glucose (Glutose) 15 gm Q15M PRN BUCCAL DECREASED GLUCOSE; Start 09/23/17 at 17 :30 Clonidine (Catapres) 0.2 mg BID GTB Last administered on 10/02/17 08:42; Admin Dose 0.2 MG; Start 09/23/17 at 21:00 Lisinopril (Zestril) 10 mg DAILY GTB Last administered on 10/02/17 08:41; Admin Dose 10 MG; Start 09/24/17 at 09:00 Memantine (Namenda) 5 mg DAILY NGT Last administered on 10/02/17 08:41; Admin Dose 5 MG; Start 09/24/17 at 09:00 Quetiapine Fumarate (Seroquel) 12.5 mg BID GTB Last administered on 10/02/17 08:42; Admin Dose 12.5 MG; Start 09/23/17 at 21:00 Cholecalciferol (Vitamin D) 2,000 unit DAILY GTB Last administered on 08:41; Admin Dose 2,000 UNIT; Start 09/24/17 at 09:00 Guaifenesin/ Dextromethorphan (Robitussin Dm Liquid Cup) 5 ml Q4H PRN PO cough Last administered on 10/01/17 22:26; Admin Dose 5 ML; Start 09/23/17 at 18:00 Hydralazine HCl (Apresoline) 10 mg Q6 PRN IV SBP >160 Last administered on 02:57; Admin Dose 10 MG; Start 09/23/17 at 18:00 Amlodipine Besylate 10 mg 10 mg DAILY GTB Last administered on 10/02/17 08:42 ; Admin Dose 10 MG; Start 09/26/17 at 09:00 Sodium Chloride 1,000 ml @ 70 mls/hr [id number] IV Last administered on 21:40; Admin Dose 70 MLS/HR; Start 09/25/17 at 11:00 Ferric Sodium Gluconate Complex 125 mg/Sodium Chloride 110 ml @ 110 mls/hr Q24H IVPB Last administered on 10/01/17 11:45; Admin Dose 110 MLS/HR; Start 09/28/17 at 12:00; Stop 10/02/17 at 12:59 Ceftriaxone Sodium 50 ml @ 100 mls/hr Q24H IVPB Last administered on 13:16; Admin Dose 100 MLS/HR; Start 09/28/17 at 13:00 Vancomycin HCl/ Dextrose/Water (Vancocin/D5W) 150 ml @ 75 mls/hr Q24H IVPB Last administered on 10/01/17t 16:13; Admin Dose 75 MLS/HR; Start 10/01/17 at 16:00 JACK REYES Oct 02, 2017 11:54
[2017-10-02] MEDS: SOD FERRIC GLUC COMPLX 125 MG in SOD CHLORIDE 0.9% 100 ML IVPB SCH (12:17)
--- NOTE | 2017-10-02 13:06 | CONS ---
Date/Time of Note Date/Time of Note DATE: 10/02/17 TIME: 13:05 Consult Date/Type/Reason Admit Date/Time Sep 23, 2017 at 12:22 Type of Consultation: ID Objective Vital Signs Date Time Temp Pulse Resp B/P Pulse Ox O2 Delivery O2 Flow Rate FiO2 10/02/17 07:52 84 20 95 21 10/02/17 07:24 99.0 155/70 09/29/17 18:00 Room Air Intake and Output 10/01/17 10/01/17 10/02/17 15:00 23:00 07:00 Intake Total 350 ml 1800 ml 850 ml Output Total 600 ml 1000 ml Balance 350 ml 1200 ml -150 ml Results/Medications Result Diagram: 09/29/17 0541 10/02/17 0552 Results 24 hrs Laboratory Tests Test 10/01/17 17:25 10/01/17 20:31 10/02/17 05:52 10/02/17 07:53 Bedside Glucose 131 129 115 Sodium Level 143 Potassium Level 3.5 Chloride Level 110 Carbon Dioxide Level 21 Anion Gap 16 Blood Urea Nitrogen 14 Creatinine 0.84 Glucose Level 113 Calcium Level 8.6 Phosphorus Level 3.5 Magnesium Level 1.9 Albumin 3.4 Test 10/02/17 12:14 Bedside Glucose 134 Medications Current Medications Ondansetron HCl (Zofran Inj) 4 mg Q6H PRN IV NAUSEA AND/OR VOMITING; Start 09/23/17 at 13:30 Acetaminophen (Tylenol Tab) 650 mg Q6H PRN GTB PAIN LEVEL 1-3 OR FEVER Last administered on 10/01/17 22:26; Admin Dose 650 MG; Start 09/23/17 at 13:30 Magnesium Hydroxide (Milk Of Mag) 30 ml DAILY PRN PO CONSTIPATION Last administered on 09/30/17 12:24; Admin Dose 30 ML; Start 09/23/17 at 13:30 Bisacodyl (Dulcolax) 5 mg DAILY PRN PO CONSTIPATION Last administered on 20:28; Admin Dose 5 MG; Start 09/23/17 at 13:30 Enoxaparin Sodium (Lovenox) 40 mg DAILY SC Last administered on 10/02/17 09: 04; Admin Dose 40 MG; Start 09/24/17 at 09:00 Diagnostic Test (Pha) (Accu-Chek) 1 ea 02 XX ; Start 09/24/17 at 02:00 Miscellaneous Information 1 ea NOTE XX ; Start 09/23/17 at 17:30 Glucose (Glutose) 15 gm Q15M PRN PO DECREASED GLUCOSE; Start 09/23/17 at 17:30 Glucose (Glutose) 22.5 gm Q15M PRN PO DECREASED GLUCOSE; Start 09/23/17 at 17: 30 Dextrose (D50w Syringe) 25 ml Q15M PRN IV DECREASED GLUCOSE; Start 09/23/17 at 17:30 Dextrose (D50w Syringe) 50 ml Q15M PRN IV DECREASED GLUCOSE; Start 09/23/17 at 17:30 Glucagon (Glucagen) 1 mg Q15M PRN IM DECREASED GLUCOSE; Start 09/23/17 at 17:30 Glucose (Glutose) 15 gm Q15M PRN BUCCAL DECREASED GLUCOSE; Start 09/23/17 at 17 :30 Clonidine (Catapres) 0.2 mg BID GTB Last administered on 10/02/17 08:42; Admin Dose 0.2 MG; Start 09/23/17 at 21:00 Lisinopril (Zestril) 10 mg DAILY GTB Last administered on 10/02/17 08:41; Admin Dose 10 MG; Start 09/24/17 at 09:00 Memantine (Namenda) 5 mg DAILY NGT Last administered on 10/02/17 08:41; Admin Dose 5 MG; Start 09/24/17 at 09:00 Quetiapine Fumarate (Seroquel) 12.5 mg BID GTB Last administered on 10/02/17 08:42; Admin Dose 12.5 MG; Start 09/23/17 at 21:00 Cholecalciferol (Vitamin D) 2,000 unit DAILY GTB Last administered on 08:41; Admin Dose 2,000 UNIT; Start 09/24/17 at 09:00 Guaifenesin/ Dextromethorphan (Robitussin Dm Liquid Cup) 5 ml Q4H PRN PO cough Last administered on 10/01/17 22:26; Admin Dose 5 ML; Start 09/23/17 at 18:00 Hydralazine HCl (Apresoline) 10 mg Q6 PRN IV SBP >160 Last administered on 11/ 14/17at 02:57; Admin Dose 10 MG; Start 09/23/17 at 18:00 Amlodipine Besylate 10 mg 10 mg DAILY GTB Last administered on 10/02/17 08:42 ; Admin Dose 10 MG; Start 09/26/17 at 09:00 Sodium Chloride 1,000 ml @ 70 mls/hr [id number] IV Last administered on 12:17; Admin Dose 70 MLS/HR; Start 09/25/17 at 11:00 Ceftriaxone Sodium 50 ml @ 100 mls/hr Q24H IVPB Last administered on 13:16; Admin Dose 100 MLS/HR; Start 09/28/17 at 13:00 Vancomycin HCl/ Dextrose/Water (Vancocin/D5W) 150 ml @ 75 mls/hr Q24H IVPB Last administered on 10/01/17 16:13; Admin Dose 75 MLS/HR; Start 10/01/17 at 16:00 Assessment/Plan Chief Complaint/Hosp Course SUBJECTIVE: No events overnight. Looks comfortable, no fevers MICROBIOLOGY: Blood cultures since admission growing Proteus mirabilis and Enterococcus species. Urine culture grew Proteus mirabilis. Repeat blood cultures negative. DIAGNOSTICS: Chest x-ray on admission revealed normal chest x-ray. CT of the brain showed atrophy. ANTIMICROBIALS: 1. Vancomycin. 2. Rocephin. ALL: PCN PHYSICAL EXAMINATION: GENERAL: This is a fragile, chronically ill-appearing, elderly woman who is in no distress. HEENT: Head atraumatic, normocephalic. Sclerae anicteric. Buccal mucosa dry. NECK: Supple. CHEST: Rise symmetrical. Breath sounds diminished to bases. HEART: S1, S2. ABDOMEN: Soft, bowel tones present. EXTREMITIES: Without cyanosis. ASSESSMENT: 1. Urinary tract infection with bacteremia. 2. Diabetes. 3. Dementia. 4. Hypertension. 5. Dysphagia, status post percutaneous endoscopic gastrostomy in the past. PLAN: The patient remains stable. Repeat bld cx negative. Continue abx for 4 more days to complete treatment for bacteremia. Aspiration precautions DW staff Problems: BOUCHRA MACIAS NP Oct 02, 2017 13:06
[2017-10-02] MEDS: CEFTRIAXONE 1 GM/50 ML (PMX) 50 ML IVPB SCH (13:43)
[2017-10-02] MEDS ORDERED: CLON0.2T12 GTB (15:18)
[2017-10-02] MEDS ORDERED: ALBU2.5V3 HHN (15:18)
[2017-10-02] MEDS ORDERED: UDMOM PO (15:18)
[2017-10-02] MEDS ORDERED: UDROBDM PO (15:18)
[2017-10-02] MEDS ORDERED: LISI10TA2 GTB (15:18)
[2017-10-02] MEDS ORDERED: CHOL200073 GTB (15:18)
[2017-10-02] MEDS ORDERED: QUET25TA33 GTB (15:18)
[2017-10-02] MEDS ORDERED: MEMA5TAB14 NGT (15:18)
[2017-10-02] MEDS ORDERED: BISA5TAB6 PO (15:18)
[2017-10-02] MEDS ORDERED: AMLO-147 GTB (15:18)
[2017-10-02 15:26] VITALS: BP 141/63; RESP 16
--- NOTE | 2017-10-02 15:26 | PDOCDIS ---
Discharge Instructions DIAGNOSIS Discharge Diagnosis 1. AMS secondary to UTI/bacteremia- resolving 2. Bacteremia 3. dilated bile duct 4. 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 anemia- stable 6. schizophrenia 7. DM 8. Dementia 9. HTN 10. Cough 11. Constipation CONDITION Patient Condition: Good HOME CARE INSTRUCTIONS: Special Diet: puree diet FOLLOW UP/APPOINTMENTS Follow-up Plan 1. Follow up with primary care physician in 1 week 2. Continue antibiotics until 10/07 for infection of blood 3. Follow up with neurologist as previously scheduled 4. Continue on IV iron and follow up CBC in 1 week 5. Continue all other medications HAILEY SMITH MD Oct 02, 2017 15:25
[2017-10-02] MEDS: VANCOMYCIN 750 MG in DEXTROSE 5% 150 ML IVPB SCH (16:08)
== END 2017-10-02 18:30 | DRG 689 ==
LOC: E/R 10:42 → MS2 12:22
PROVIDERS: ADMIT Internal Medicine; ATTEND Internal Medicine
DX: N39.0 Urinary tract infection, site not specified (principal); G93.49 Other encephalopathy; R78.81 Bacteremia; G30.1 Alzheimer's disease with late onset; B96.4 Proteus (mirabilis) (morganii) as the cause of diseases classified elsewhere; F03.90 Unspecified dementia, unspecified severity, without behavioral disturbance, psychotic disturbance, mood disturbance, and anxiety; E11.9 Type 2 diabetes mellitus without complications; I10 Essential (primary) hypertension; B95.2 Enterococcus as the cause of diseases classified elsewhere; Z93.1 Gastrostomy status; D50.9 Iron deficiency anemia, unspecified; R13.10 Dysphagia, unspecified; F20.9 Schizophrenia, unspecified; Z74.01 Bed confinement status; R05 Cough; F02.80 Dementia in other diseases classified elsewhere, unspecified severity, without behavioral disturbance, psychotic disturbance, mood disturbance, and anxiety; K83.9 Disease of biliary tract, unspecified; K59.00 Constipation, unspecified; R74.8 Abnormal levels of other serum enzymes
CPT/HCPCS: 36415; 70450; 71010; 71250; 72125; 76705; 80048; 80053; 80069; 80202; 81001; 82150; 82270; 82962; 82977; 83036; 83540; 83605; 83690; 83735; 84100; 84484; 85025; 87040; 87081; 87086; 92526; 92610; 93005; 94640; 94664; 96374; 96375; J0360; J0692; J0696; J1650; J1815; J2543; J2916; J3370; J3480; J7030